=== PATIENT | female | born 1995 | race Two or more races ===

== ENCOUNTER 2018-11-18 11:34 | Inpatient (IN) | payer SELFPAY ==
[2018-11-18] MEDS ORDERED: Carboprost Tromethamine 250 MCG/1 ML Amp IM PRN (11:47)
[2018-11-18] MEDS ORDERED: Sodium Chloride 0.9% 10 ML Syringe FLUSH PRN (11:47)
[2018-11-18] MEDS ORDERED: Misoprostol 200 MCG Tab PO PRN (11:47)
[2018-11-18] MEDS ORDERED: Tranexamic Acid 1,000 MG in Sodium Chloride 0.9% 100 ML IV PRN (11:47)
[2018-11-18] MEDS ORDERED: Ampicillin 2 GM in Sodium Chloride 0.9% 100 ML IV ONE (11:47)
[2018-11-18] MEDS ORDERED: Terbutaline 1 MG/ML SDV SUBCUT PRN (11:47)
[2018-11-18] MEDS ORDERED: Methylergonovine 0.2 MG/1 ML Amp IM PRN (11:47)
[2018-11-18] MEDS ORDERED: Lidocaine 1% 50 ML MDV INJECT PRN (11:47)
[2018-11-18] MEDS ORDERED: Sodium Chloride 0.9% 2.5 ML Syringe FLUSH PRN (11:47)
[2018-11-18] MEDS ORDERED: Nalbuphine 10 MG/1 ML Vial IVPUSH PRN (11:47)
[2018-11-18] MEDS ORDERED: Butorphanol 1 MG/ML SDV IVPUSH PRN (11:47)
[2018-11-18] MEDS ORDERED: Water For Irrigation,Sterile 1,000 ML Container IRR PRN (11:47)
[2018-11-18] MEDS ORDERED: Misoprostol 25 MCG (1/4 of 100 MCG) Tab VAG PRN ×2 (11:47)
[2018-11-18] MEDS ORDERED: Lactated Ringers 1,000 ML IV SCH (12:00)
[2018-11-18] MEDS ORDERED: Oxytocin/0.9 % Sodium Chloride 30 UNIT/500 ML BAG IV SCH ×2 (12:00)
[2018-11-18] MEDS: Misoprostol 25 MCG (1/4 of 100 MCG) Tab PO ONE ×2 (13:16→17:46)
--- NOTE | 2018-11-18 13:19 | PCM.LDHP ---
L&D History of Present Illness - General Date of Service: 11/18/18 Admit Problem/Dx: Patient Status Order with Admit Dx/Problem 11/18/18 11:47 Patient Status [ADT] Routine Admission Diagnosis/Problem Admission Diagnosis/Problem Post term Source of Information: Patient History Limitations: Reports: No Limitations - History of Present Illness Improves with: Reports: None Worsens with: Reports: None Associated Symptoms: Reports: N - Related Data Allergies/Adverse Reactions: Allergies Allergy/AdvReac Type Severity Reaction Status Date / Time No Known Allergies Allergy Verified 09/12/18 14:45 Home Medications: Home Meds . 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: Social & Family History - Family History Cardiac: Reports: Hypertension OBGYN: Reports: H&P Review of Systems - Review of Systems: Review Of Systems: See Below General: Reports: No Symptoms HEENT: Reports: No Symptoms Pulmonary: Reports: No Symptoms Cardiovascular: Reports: No Symptoms Gastrointestinal: Reports: No Symptoms Genitourinary: Reports: No Symptoms Musculoskeletal: Reports: No Symptoms Skin: Reports: No Symptoms Psychiatric: Reports: No Symptoms Neurological: Reports: No Symptoms Hematologic/Lymphatic: Reports: No Symptoms Immunologic: Reports: No Symptoms L&D Exam - Exam Exam: See Below - Vital Signs Weight: 195 kg - OB Specific Fundal Height In cm: 39 Contraction Intensity: Mild Movement: Active Heart Tones: Present Presentation: Vertex - Otero Score Otero Score Cervix Position: Midposition Otero Score Consistency: Soft Otero Score Effacement: 51-70% Otero Score Dilation: 1-2 cm Otero Score 's Station: -2 Otero Score Total: 7 - Exam General: Alert, Oriented HEENT: PERRLA, Conjunctiva Clear, EACs Clear, EOMI, Hearing Intact, Mucosa Moist & [place], Nares Patent, Normal Nasal Septum, Posterior Pharynx Clear, TMs Clear Neck: Supple, Trachea Midline Lungs: Clear to Auscultation, Normal Respiratory Effort Cardiovascular: Regular Rate, Regular Rhythm GI/Abdominal Exam: Normal Bowel Sounds, Soft, Non-Tender, No Organomegaly, No Distention, No Abnormal Bruit, No Mass, Pelvis Stable Rectal Exam: Normal Exam, Normal Rectal Tone Genitourinary: Normal external exam, Normal bimanual exam, Normal speculum exam Back Exam: Normal Inspection, Full Range of Motion Extremities: Normal Inspection, Normal Range of Motion, Non-Tender, No Pedal Edema, Normal Capillary Refill Skin: Warm, Dry, Intact Neurological: Cranial Nerves Intact, Reflexes Equal Bilateral Psychiatric: Alert, Normal Affect, Normal Mood - Patient Data Lab Results Last 24 hrs: Laboratory Results - last 24 hr 11/18/18 Range/Units 12:14 WBC 8.55 (4.0-11.0) K/uL RBC 3.69 L (4.30-5.90) M/uL Hgb 9.9 L (12.0-16.0) g/dL Hct 30.6 L (36.0-46.0) % MCV 82.9 (80.0-98.0) fL MCH 26.8 L (27.0-32.0) pg MCHC 32.4 (31.0-37.0) g/dL RDW Std Deviation 44.4 (28.0-62.0) fl RDW Coeff of Pete 15 (11.0-15.0) % Plt Count 206 (150-400) K/uL MPV 11.40 (7.40-12.00) fL Nucleated RBC % 0.0 /100WBC Nucleated RBCs # 0 K/uL Result Diagrams: 11/18/18 12:14 Problem List Initiated/Reviewed/Updated: Yes Orders Last 24hrs: Active Orders 24 hr Category Date Time Status Patient Status [ADT] Routine ADT 11/18/18 11:47 Active Bedrest Bathroom Privileges [RC] ASDIRECTED Care 11/18/18 11:47 Active Communication Order [RC] ASDIRECTED Care 11/18/18 11:47 Active Communication Order [RC] ASDIRECTED Care 11/18/18 11:47 Active Communication Order [RC] ASDIRECTED Care 11/18/18 11:47 Active Heart Tones [RC] CONTINUOUS Care 11/18/18 11:47 Active Non Stress Test [RC] PER UNIT ROUTINE Care 11/18/18 11:47 Active May Shower [RC] ASDIRECTED Care 11/18/18 11:47 Active Notify Provider [RC] PRN Care 11/18/18 11:47 Active Notify Provider [RC] PRN Care 11/18/18 11:47 Active Notify Provider [RC] STAT Care 11/18/18 11:47 Active Oxygen Therapy [RC] ASDIRECTED Care 11/18/18 11:47 Active Up ad Ashley [RC] ASDIRECTED Care 11/18/18 11:47 Active Vaginal Exam [RC] PRN Care 11/18/18 11:47 Active Vaginal Exam [RC] PRN Care 11/18/18 11:47 Active Vital Signs [RC] PER UNIT ROUTINE Care 11/18/18 11:47 Active Regular Diet [DIET] Diet 11/18/18 Lunch Active TYPE AND SCREEN [BBK] Routine Lab 11/18/18 12:14 Received Ampicillin 1 gm Med 11/18/18 16:00 Active Sodium Chloride 0.9% [Normal Saline] 50 ml IV Q4H Butorphanol [Stadol] Med 11/18/18 11:47 Active 1 mg IVPUSH Q1H PRN Carboprost Tromethamine [Hemabate DS] Med 11/18/18 11:47 Active 250 mcg IM ASDIRECTED PRN Lactated Ringers [Ringers, Lactated] 1,000 ml Med 11/18/18 12:00 Active IV ASDIRECTED Lidocaine 1% [Xylocaine 1%] Med 11/18/18 11:47 Active 50 ml INJECT ONETIME PRN Methylergonovine [Methergine] Med 11/18/18 11:47 Active 0.2 mg IM ASDIRECTED PRN Nalbuphine [Nubain] Med 11/18/18 11:47 Active 10 mg IVPUSH Q1H PRN Oxytocin/0.9 % Sodium Chloride [Oxytocin 30 Unit/500 ML Med 11/18/18 12:00 Active -NS] 30 unit in 500 ml IV TITRATE Oxytocin/0.9 % Sodium Chloride [Oxytocin 30 Unit/500 ML Med 11/18/18 12:00 Active -NS] 30 unit in 500 ml IV TITRATE Sodium Chloride 0.9% [Saline Flush] Med 11/18/18 11:47 Active 10 ml FLUSH ASDIRECTED PRN Sodium Chloride 0.9% [Saline Flush] Med 11/18/18 11:47 Active 2.5 ml FLUSH ASDIRECTED PRN Terbutaline [Brethine] Med 11/18/18 11:47 Active 0.25 mg SUBCUT ASDIRECTED PRN Tranexamic Acid [Cyklokapron] 1,000 mg Med 11/18/18 11:47 Active Sodium Chloride 0.9% [Normal Saline] 100 ml IV ONETIME Water For Irrigation,Sterile [Sterile Water for Med 11/18/18 11:47 Active Irrigation] 1,000 ml IRR ASDIRECTED PRN miSOPROStol [Cytotec] Med 11/18/18 11:47 Active 200 mcg PO ONETIME PRN miSOPROStol [Cytotec] Med 11/18/18 11:47 Active 25 mcg VAG ONETIME PRN miSOPROStol [Cytotec] Med 11/18/18 11:47 Active 25 mcg VAG Q4H PRN Scalp Electrode [WOMSER] Per Unit Routine Oth 11/18/18 11:47 Ordered Medication Administration Instruction [OM.PC] Q3H Oth 11/18/18 12:00 Ordered Peripheral IV Insertion Adult [OM.PC] Routine Oth 11/18/18 11:47 Ordered Resuscitation Status Routine Resus Stat 11/18/18 11:47 Ordered Medication Orders Butorphanol Tartrate (Stadol) 1 mg IVPUSH Q1H PRN PRN Reason: Pain Carboprost Tromethamine (Hemabate Ds) 250 mcg IM ASDIRECTED PRN PRN Reason: Post Hemorrhage Ampicillin Sodium 1 gm/ Sodium (Chloride) 50 mls @ 100 mls/hr IV Q4H TEJAS Lactated Ringer's (Ringers, Lactated) 1,000 mls @ 150 mls/hr IV ASDIRECTED TEJAS Oxytocin/Sodium Chloride (Oxytocin 30 Unit/500 Ml-Ns) 30 unit in 500 mls @ 2 mls/hr IV TITRATE COUNT INCLUDES THE [facility]; Protocol Oxytocin/Sodium Chloride (Oxytocin 30 Unit/500 Ml-Ns) 30 unit in 500 mls @ 555 mls/hr IV TITRATE TEJAS Tranexamic Acid 1,000 mg/ (Sodium Chloride) 110 mls @ 660 mls/hr IV ONETIME PRN PRN Reason: Bleeding Lidocaine HCl (Xylocaine 1%) 50 ml INJECT ONETIME PRN PRN Reason: Laceration repair Methylergonovine Maleate (Methergine) 0.2 mg IM ASDIRECTED PRN PRN Reason: Post Hemorrhage Misoprostol (Cytotec) 25 mcg VAG ONETIME PRN PRN Reason: Cervical Ripening Last Admin: 11/18/18 13:15 Dose: 25 mcg Misoprostol (Cytotec) 25 mcg VAG Q4H PRN PRN Reason: Cervical Ripening Misoprostol (Cytotec) 200 mcg PO ONETIME PRN PRN Reason: Post Hemorrhage Nalbuphine HCl (Nubain) 10 mg IVPUSH Q1H PRN PRN Reason: Pain (severe 7-10) Sodium Chloride (Saline Flush) 10 ml FLUSH ASDIRECTED PRN PRN Reason: Keep Vein Open Sodium Chloride (Saline Flush) 2.5 ml FLUSH ASDIRECTED PRN PRN Reason: Keep Vein Open Sterile Water (Sterile Water For Irrigation) 1,000 ml IRR ASDIRECTED PRN PRN Reason: delivery Terbutaline Sulfate (Brethine) 0.25 mg SUBCUT ASDIRECTED PRN PRN Reason: Tacysystole Assessment/Plan Comment:: Post date admited for elective induction with Cytotec and Pitocin.
[2018-11-18] MEDS: Ampicillin 1 GM in Sodium Chloride 0.9% 50 ML IV SCH (18:36)
[2018-11-18] MEDS ORDERED: Lidocaine 1% 50 ML MDV ONE (20:50)
[2018-11-18] MEDS ORDERED: Witch Hazel Medicated Pads 40/Jar TOP PRN (21:08)
[2018-11-18] MEDS ORDERED: Ibuprofen 400 MG Tab PO PRN (21:08)
[2018-11-18] MEDS ORDERED: Bisacodyl 10 MG Supp RECTAL PRN (21:08)
[2018-11-18] MEDS ORDERED: oxyCODONE 5 MG Tab PO PRN (21:08)
[2018-11-18] MEDS ORDERED: Benzocaine/Menthol 20%-0.5% Spray 78 GM Cannister TOP PRN (21:08)
[2018-11-18] MEDS ORDERED: Lanolin 100% Cream 7 GM Tube TOP PRN (21:08)
[2018-11-18] MEDS ORDERED: Docusate Sodium 100 MG Cap PO PRN (21:08)
[2018-11-18] MEDS ORDERED: Acetaminophen 500 MG Tab PO PRN (21:08)
[2018-11-18] MEDS: Ibuprofen 800 MG Tab PO PRN (21:55)
[2018-11-19] MEDS: Acetaminophen 500 MG Tab PO PRN ×2 (03:31→10:28)
[2018-11-19] MEDS: Ibuprofen 800 MG Tab PO PRN ×3 (03:32→20:02)
--- NOTE | 2018-11-19 04:05 | OR ---
SURGEON: Koe Escalona MD DATE OF PROCEDURE: Ms. Rogers is 23. She is para 1-0-0-1. She had a previous normal spontaneous vaginal delivery. She is followed in our clinic primarily by me. The patient has had an uncomplicated care. Her GBS status was positive. The patient is admitted. She is 40 plus weeks. She is admitted for elective induction. She was induced with Cytotec. She required 2 doses of Cytotec, and she started to contract after that. She started cm on her own. She had an artificial rupture of the membranes with clear fluid at 6 to 7 cm. The patient did not want to have epidural for labor analgesia. She progressed and she became complete-complete, and she was able to accomplish a normal spontaneous vaginal delivery of a female fetus. She has cried immediately. For the score and the weight, please refer to the nurse note. The placenta delivered spontaneous, complete, and intact. There was a small first-degree perineal laceration. It was repaired with 3-0 Vicryl after infiltrating the area with 1% xylocaine, and heart rate was category I through the entire process of labor and delivery. Estimated blood loss is 250 to 300 mL. There was no complication in this Labor and Delivery. RONAN / EVERARDO /[id number]
--- NOTE | 2018-11-19 09:35 | PCM.PNPP ---
- General Info Date of Service: 11/19/18 Functional Status: Reports: Pain Controlled - Review of Systems General: Reports: No Symptoms HEENT: Reports: No Symptoms Pulmonary: Reports: No Symptoms Cardiovascular: Reports: No Symptoms Gastrointestinal: Reports: No Symptoms Genitourinary: Reports: No Symptoms Musculoskeletal: Reports: No Symptoms Skin: Reports: No Symptoms Neurological: Reports: No Symptoms Psychiatric: Reports: No Symptoms - General Info Date of Service: 11/19/18 - Patient Data Vital Signs - Most Recent: Last Vital Signs Temp 37.0 C 11/19/18 07:10 Pulse 86 11/19/18 07:10 Resp 17 11/19/18 07:10 BP 117/69 11/19/18 07:10 Pulse Ox 97 11/19/18 07:10 Weight - Most Recent: 195 kg Lab Results - Last 24 Hours: Laboratory Results - last 24 hr 11/18/18 11/18/18 11/19/18 Range/Units 12:14 12:14 04:50 WBC 8.55 (4.0-11.0) K/uL RBC 3.69 L (4.30-5.90) M/uL Hgb 9.9 L 9.8 L (12.0-16.0) g/dL Hct 30.6 L 30.7 L (36.0-46.0) % MCV 82.9 (80.0-98.0) fL MCH 26.8 L (27.0-32.0) pg MCHC 32.4 (31.0-37.0) g/dL RDW Std Deviation 44.4 (28.0-62.0) fl RDW Coeff of Pete 15 (11.0-15.0) % Plt Count 206 (150-400) K/uL MPV 11.40 (7.40-12.00) fL Nucleated RBC % 0.0 /100WBC Nucleated RBCs # 0 K/uL Blood Type A POSITIVE Antibody Screen NEGATIVE Med Orders - Current: Current Medications Acetaminophen (Tylenol Extra Strength) 500 mg PO Q4H PRN PRN Reason: Pain Acetaminophen (Tylenol Extra Strength) 1,000 mg PO Q4H PRN PRN Reason: Pain Last Admin: 11/19/18 03:31 Dose: 1,000 mg Benzocaine/Menthol (Dermoplast Pain Relief 20%-0.5% Mclean) 78 gm TOP ASDIRECTED PRN PRN Reason: Perineal Comfort Measure Last Admin: 11/18/18 21:59 Dose: 1 can Bisacodyl (Dulcolax) 10 mg RECTAL ONETIME PRN PRN Reason: Constipation Butorphanol Tartrate (Stadol) 1 mg IVPUSH Q1H PRN PRN Reason: Pain Last Admin: 11/18/18 19:03 Dose: 1 mg Carboprost Tromethamine (Hemabate Ds) 250 mcg IM ASDIRECTED PRN PRN Reason: Post Hemorrhage Docusate Sodium (Colace) 100 mg PO BID PRN PRN Reason: Constipation Emollient Ointment (Lansinoh Hpa) 0 gm TOP ASDIRECTED PRN PRN Reason: Sore Nipples Ampicillin Sodium 1 gm/ Sodium (Chloride) 50 mls @ 100 mls/hr IV Q4H TEJAS Last Admin: 11/18/18 18:36 Dose: 100 mls/hr Lactated Ringer's (Ringers, Lactated) 1,000 mls @ 150 mls/hr IV ASDIRECTED TEJAS Oxytocin/Sodium Chloride (Oxytocin 30 Unit/500 Ml-Ns) 30 unit in 500 mls @ 2 mls/hr IV TITRATE COUNTS INCLUDE 234 BEDS AT THE [facility]; Protocol Oxytocin/Sodium Chloride (Oxytocin 30 Unit/500 Ml-Ns) 30 unit in 500 mls @ 555 mls/hr IV TITRATE COUNTS INCLUDE 234 BEDS AT THE [facility] Last Admin: 11/18/18 20:45 Dose: 555 mls/hr Tranexamic Acid 1,000 mg/ (Sodium Chloride) 110 mls @ 660 mls/hr IV ONETIME PRN PRN Reason: Bleeding Ibuprofen (Motrin) 400 mg PO Q4H PRN PRN Reason: Pain Ibuprofen (Motrin) 800 mg PO Q6H PRN PRN Reason: Pain Last Admin: 11/19/18 03:32 Dose: 800 mg Lidocaine HCl (Xylocaine 1%) 50 ml INJECT ONETIME PRN PRN Reason: Laceration repair Last Admin: 11/18/18 20:52 Dose: 50 ml Methylergonovine Maleate (Methergine) 0.2 mg IM ASDIRECTED PRN PRN Reason: Post Hemorrhage Misoprostol (Cytotec) 25 mcg VAG ONETIME PRN PRN Reason: Cervical Ripening Last Admin: 11/18/18 13:15 Dose: 25 mcg Misoprostol (Cytotec) 25 mcg VAG Q4H PRN PRN Reason: Cervical Ripening Last Admin: 11/18/18 17:46 Dose: 25 mcg Misoprostol (Cytotec) 200 mcg PO ONETIME PRN PRN Reason: Post Hemorrhage Nalbuphine HCl (Nubain) 10 mg IVPUSH Q1H PRN PRN Reason: Pain (severe 7-10) Oxycodone HCl (Oxycodone) 5 mg PO Q2H PRN PRN Reason: Pain Last Admin: 11/18/18 21:58 Dose: 5 mg Sodium Chloride (Saline Flush) 10 ml FLUSH ASDIRECTED PRN PRN Reason: Keep Vein Open Sodium Chloride (Saline Flush) 2.5 ml FLUSH ASDIRECTED PRN PRN Reason: Keep Vein Open Sterile Water (Sterile Water For Irrigation) 1,000 ml IRR ASDIRECTED PRN PRN Reason: delivery Terbutaline Sulfate (Brethine) 0.25 mg SUBCUT ASDIRECTED PRN PRN Reason: Tacysystole Witch Maite (Tucks) 1 pad TOP ASDIRECTED PRN PRN Reason: comfort care Discontinued Medications Ampicillin Sodium 2 gm/ Sodium (Chloride) 100 mls @ 200 mls/hr IV ONETIME ONE Stop: 11/18/18 12:16 Last Admin: 11/18/18 14:15 Dose: 200 mls/hr Lidocaine HCl (Xylocaine 1%) Confirm Administered Dose 50 ml .ROUTE .STK-MED ONE Stop: 11/18/18 20:51 Misoprostol (Cytotec) 25 mcg PO ONETIME ONE Stop: 11/18/18 12:23 Last Admin: 11/18/18 17:46 Dose: 25 mcg - Interaction Infant Disposition, : [place] in Room with Family Interaction: Holding Infant Feeding: Attempted ; Nursed Fair/Poor Support Person: Significant Other - Recovery Exam Fundal Tone: Firm Fundal Level: 1 Fingerbreadths Below Umbilicus Fundal Placement: Midline Lochia Amount: Scant Lochia Color: Rubra/Red - Exam General: Alert, Oriented HEENT: Pupils Equal Neck: Supple Lungs: Clear to Auscultation, Normal Respiratory Effort Cardiovascular: Regular Rate, Regular Rhythm GI/Abdominal Exam: Normal Bowel Sounds, Soft, Non-Tender, No Organomegaly, No Distention, No Abnormal Bruit, No Mass, Pelvis Stable Extremities: Normal Inspection, Normal Range of Motion, Non-Tender, No Pedal Edema, Normal Capillary Refill Skin: Warm, Dry, Intact Wound/Incisions: Healing Well Neurological: No New Focal Deficit Psy/Mental Status: Alert, Normal Affect, Normal Mood - Problem List Review Problem List Initiated/Reviewed/Updated: Yes - My Orders Last 24 Hours: My Active Orders 11/18/18 11:47 Communication Order [RC] ASDIRECTED Notify Provider [RC] PRN Notify Provider [RC] PRN Notify Provider [RC] STAT Oxygen Therapy [RC] ASDIRECTED Up ad Ashley [RC] ASDIRECTED Vital Signs [RC] PER UNIT ROUTINE Butorphanol [Stadol] 1 mg IVPUSH Q1H PRN Carboprost Tromethamine [Hemabate DS] 250 mcg IM ASDIRECTED PRN Lidocaine 1% [Xylocaine 1%] 50 ml INJECT ONETIME PRN Methylergonovine [Methergine] 0.2 mg IM ASDIRECTED PRN Nalbuphine [Nubain] 10 mg IVPUSH Q1H PRN Sodium Chloride 0.9% [Saline Flush] 10 ml FLUSH ASDIRECTED PRN Sodium Chloride 0.9% [Saline Flush] 2.5 ml FLUSH ASDIRECTED PRN Terbutaline [Brethine] 0.25 mg SUBCUT ASDIRECTED PRN Tranexamic Acid [Cyklokapron] 1,000 mg Sodium Chloride 0.9% [Normal Saline] 100 ml IV ONETIME Water For Irrigation,Sterile [Sterile Water for Irrigation] 1,000 ml IRR ASDIRECTED PRN miSOPROStol [Cytotec] 200 mcg PO ONETIME PRN miSOPROStol [Cytotec] 25 mcg VAG ONETIME PRN miSOPROStol [Cytotec] 25 mcg VAG Q4H PRN Scalp Electrode [WOMSER] Per Unit Routine Peripheral IV Insertion Adult [OM.PC] Routine Resuscitation Status Routine 11/18/18 12:00 Lactated Ringers [Ringers, Lactated] 1,000 ml IV ASDIRECTED Oxytocin/0.9 % Sodium Chloride [Oxytocin 30 Unit/500 ML-NS] 30 unit in 500 ml IV TITRATE Oxytocin/0.9 % Sodium Chloride [Oxytocin 30 Unit/500 ML-NS] 30 unit in 500 ml IV TITRATE Medication Administration Instruction [OM.PC] Q3H 11/18/18 16:00 Ampicillin 1 gm Sodium Chloride 0.9% [Normal Saline] 50 ml IV Q4H 11/18/18 21:08 Acetaminophen [Tylenol Extra Strength] 1,000 mg PO Q4H PRN Acetaminophen [Tylenol Extra Strength] 500 mg PO Q4H PRN Benzocaine/Menthol [Dermoplast Pain Relief 20%-0.5% Mclean] 78 gm TOP ASDIRECTED PRN Bisacodyl [Dulcolax] 10 mg RECTAL ONETIME PRN Docusate Sodium [Colace] 100 mg PO BID PRN Ibuprofen [Motrin] 400 mg PO Q4H PRN Ibuprofen [Motrin] 800 mg PO Q6H PRN Lanolin [Lansinoh HPA] See Dose Instructions TOP ASDIRECTED PRN Witch Maite [Tucks] 1 pad TOP ASDIRECTED PRN oxyCODONE 5 mg PO Q2H PRN 11/18/18 21:09 Patient Status [ADT] Routine May Shower [RC] ASDIRECTED Up ad Ashley [RC] ASDIRECTED Vital Signs [RC] PER UNIT ROUTINE Assess Lochia [WOMSER] Per Unit Routine Assess Uterine Involution [WOMSER] Per Unit Routine Peripheral IV Discontinue [OM.PC] Routine 11/18/18 Lunch Regular Diet [DIET] - Assessment Assessment:: Status post normal spontaneous vaginal delivery doing well the patient like to be discharged today - Plan Plan:: Post date admited for elective induction with Cytotec and Pitocin.
[2018-11-19] MEDS: Ampicillin 1 GM in Sodium Chloride 0.9% 50 ML IV SCH ×5 (11:29→23:15)
== END 2018-11-20 01:15 | disposition home or self-care (01) | DRG 807 ==
LOC: MW.OBCHECK 11:34 → MW.OB 11:35 → OBSVTOIN 11:47 → MW.OB 11:47 → MW.MS 13:37 → MW.OB 13:40
PROVIDERS: ADMIT Obstetrics & Gynecology; ATTEND Obstetrics & Gynecology
PROC: 10E0XZZ Delivery of Products of Conception, External Approach (ICD-10-PCS; principal; 2018-11-18)
PROC: 0HQ9XZZ Repair Perineum Skin, External Approach (ICD-10-PCS; 2018-11-18)
PROC: 10907ZC Drainage of Amniotic Fluid, Therapeutic from Products of Conception, Via Natural or Artificial Opening (ICD-10-PCS; 2018-11-18)
PROC: 3E033VJ Introduction of Other Hormone into Peripheral Vein, Percutaneous Approach (ICD-10-PCS; 2018-11-18)
PROC: 3E0P7VZ Introduction of Hormone into Female Reproductive, Via Natural or Artificial Opening (ICD-10-PCS; 2018-11-18)
DX: O48.0 Post-term pregnancy (principal); Z37.0 Single live birth; Z3A.40 40 weeks gestation of pregnancy; O99.824 Streptococcus B carrier state complicating childbirth; O70.0 First degree perineal laceration during delivery; Z67.11 Type A blood, Rh negative
CPT/HCPCS: 36415; 59025; 59409; 85014; 85018; 85027; 86850; 86900; 86901; A9270-GY; J0290; J0595; J2590; J7030; J7050

== ENCOUNTER 2019-11-08 11:46 | Inpatient (IN) | payer SELFPAY ==
[2019-11-08] MEDS ORDERED: Sodium Chloride 0.9% 10 ML Syringe FLUSH PRN (11:52)
[2019-11-08] MEDS ORDERED: Lidocaine 1% 50 ML MDV INJECT PRN (11:52)
[2019-11-08] MEDS ORDERED: Butorphanol 1 MG/ML SDV IVPUSH PRN (11:52)
[2019-11-08] MEDS ORDERED: Ondansetron 4 MG/2 ML SDV IVPUSH PRN (11:52)
[2019-11-08] MEDS ORDERED: Nalbuphine 10 MG/1 ML Vial IVPUSH PRN (11:52)
[2019-11-08] MEDS ORDERED: Methylergonovine 0.2 MG/1 ML Amp IM PRN (11:52)
[2019-11-08] MEDS ORDERED: Tranexamic Acid 1,000 MG in Sodium Chloride 0.9% 100 ML IV PRN (11:52)
[2019-11-08] MEDS ORDERED: Carboprost Tromethamine 250 MCG/1 ML Amp IM PRN (11:52)
[2019-11-08] MEDS ORDERED: Sodium Chloride 0.9% 10 ML SDV IV PRN (11:52)
[2019-11-08] MEDS ORDERED: Misoprostol 200 MCG Tab PO PRN (11:52)
[2019-11-08] MEDS ORDERED: Sodium Chloride 0.9% 2.5 ML Syringe FLUSH PRN (11:52)
[2019-11-08] MEDS ORDERED: Water For Irrigation,Sterile 1,000 ML Container IRR PRN (11:52)
[2019-11-08] MEDS ORDERED: Lactated Ringers 1,000 ML IV SCH (12:00)
[2019-11-08] MEDS ORDERED: Oxytocin/0.9 % Sodium Chloride 30 UNIT/500 ML BAG IV SCH (12:00)
[2019-11-08] MEDS ORDERED: fentaNYL 100 MCG/2 ML SDV ONE (12:32)
[2019-11-08] MEDS ORDERED: Ropivacaine HCl/PF 100 ML ONE (12:32)
--- NOTE | 2019-11-08 12:39 | PCM.LDHP ---
L&D History of Present Illness - General Date of Service: 11/08/19 Admit Problem/Dx: Patient Status Order with Admit Dx/Problem 11/08/19 11:52 Patient Status [ADT] Routine Admission Diagnosis/Problem Admission Diagnosis/Problem - planned 11/08/19 12:33 24yo EDC 11/15/2018 39wks Comes in active labor, A+, RI, GBS neg. Source of Information: Patient History Limitations: Reports: No Limitations - History of Present Illness Improves with: Reports: None Worsens with: Reports: None Associated Symptoms: Reports: N - Related Data Allergies/Adverse Reactions: Allergies Allergy/AdvReac Type Severity Reaction Status Date / Time No Known Allergies Allergy Verified 09/12/18 14:45 Home Medications: Home Meds . 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: Social & Family History - Family History Cardiac: Reports: Hypertension OBGYN: Reports: H&P Review of Systems - Review of Systems: Review Of Systems: See Below General: Reports: No Symptoms HEENT: Reports: No Symptoms Pulmonary: Reports: No Symptoms Cardiovascular: Reports: No Symptoms Gastrointestinal: Reports: No Symptoms Genitourinary: Reports: No Symptoms Musculoskeletal: Reports: No Symptoms Skin: Reports: No Symptoms Psychiatric: Reports: No Symptoms Neurological: Reports: No Symptoms Hematologic/Lymphatic: Reports: No Symptoms Immunologic: Reports: No Symptoms L&D Exam - Exam Exam: See Below - Vital Signs Weight: 96.162 kg - OB Specific Contraction Intensity: Strong Movement: Active Heart Tones: Present Heart Rate (FHR) Variability: Moderate (6-25 bmp) Presentation: Vertex - Otero Score Otero Score Cervix Position: Anterior Otero Score Consistency: Soft Otero Score Effacement: >80% Otero Score Dilation: > 5 cm Otero Score 's Station: -2 Otero Score Total: 11 - Exam General: Alert, Oriented, Cooperative, Mild Distress HEENT: Hearing Intact Lungs: Normal Respiratory Effort GI/Abdominal Exam: Soft, Non-Tender Rectal Exam: Deferred Genitourinary: Normal external exam, Normal bimanual exam, Cervical dilitation. No: Cervical fluid, Vaginal bleeding Back Exam: Full Range of Motion Extremities: Normal Range of Motion, Non-Tender, No Pedal Edema Skin: Warm, Dry, Intact Neurological: Cranial Nerves Intact, Strength Equal Bilateral, Normal Speech, Normal Tone, Sensation Intact Psychiatric: Alert, Normal Affect, Normal Mood - Problem List (1) Supervision of normal IUP (intrauterine ) in multigravida SNOMED Code(s): 066409405, [id number], [id number] ICD Code: Z34.80 - ENCOUNTER FOR SUPRVSN OF NORMAL , UNSP TRIMESTER Status: Acute Priority: High Current Visit: Yes Qualifiers: Trimester: third trimester Qualified Code(s): Z34.83 - Encounter for supervision of other normal , third trimester Problem List Initiated/Reviewed/Updated: Yes Orders Last 24hrs: Active Orders 24 hr Category Date Time Status Patient Status [ADT] Routine ADT 11/08/19 11:52 Active Heart Tones [RC] CONTINUOUS Care 11/08/19 11:52 Active May Shower [RC] ASDIRECTED Care 11/08/19 11:52 Active Notify Provider [RC] PRN Care 11/08/19 11:52 Active Up ad Ashley [RC] ASDIRECTED Care 11/08/19 11:52 Active Vaginal Exam [RC] PRN Care 11/08/19 11:52 Active Vital Signs [RC] PER UNIT ROUTINE Care 11/08/19 11:52 Active CBC W/O DIFF,HEMOGRAM [HEME] Routine Lab 11/08/19 11:52 Ordered RAPID PLASMA REAGIN, QUANT [REF] Routine Lab 11/08/19 11:52 Ordered TYPE AND SCREEN [BBK] Routine Lab 11/08/19 11:52 Ordered Butorphanol [Stadol] Med 11/08/19 11:52 Active 1 mg IVPUSH Q1H PRN Carboprost Tromethamine [Hemabate DS] Med 11/08/19 11:52 Active 250 mcg IM ASDIRECTED PRN Lactated Ringers [Ringers, Lactated] 1,000 ml Med 11/08/19 12:00 Active IV ASDIRECTED Lidocaine 1% [Xylocaine 1%] Med 11/08/19 11:52 Active 50 ml INJECT ONETIME PRN Methylergonovine [Methergine] Med 11/08/19 11:52 Active 0.2 mg IM ASDIRECTED PRN Nalbuphine [Nubain] Med 11/08/19 11:52 Active 10 mg IVPUSH Q1H PRN Ondansetron [Zofran] Med 11/08/19 11:52 Active 4 mg IVPUSH Q6H PRN Oxytocin/0.9 % Sodium Chloride [Oxytocin 30 Unit/500 ML Med 11/08/19 12:00 Active -NS] 30 unit in 500 ml IV TITRATE Sodium Chloride 0.9% [Normal Saline] Med 11/08/19 11:52 Active 10 ml IV ASDIRECTED PRN Sodium Chloride 0.9% [Saline Flush] Med 11/08/19 11:52 Active 10 ml FLUSH ASDIRECTED PRN Sodium Chloride 0.9% [Saline Flush] Med 11/08/19 11:52 Active 2.5 ml FLUSH ASDIRECTED PRN Tranexamic Acid [Cyklokapron] 1,000 mg Med 11/08/19 11:52 Active Sodium Chloride 0.9% [Normal Saline] 100 ml IV ONETIME Water For Irrigation,Sterile [Sterile Water for Med 11/08/19 11:52 Active Irrigation] 1,000 ml IRR ASDIRECTED PRN miSOPROStoL [Cytotec] Med 11/08/19 11:52 Active 200 mcg PO ONETIME PRN Scalp Electrode [WOMSER] Per Unit Routine Oth 11/08/19 11:52 Ordered Peripheral IV Insertion Adult [OM.PC] Routine Oth 11/08/19 11:52 Ordered Resuscitation Status Routine Resus Stat 11/08/19 11:52 Ordered Medication Orders Butorphanol Tartrate (Stadol) 1 mg IVPUSH Q1H PRN PRN Reason: Pain Carboprost Tromethamine (Hemabate Ds) 250 mcg IM ASDIRECTED PRN PRN Reason: Post Hemorrhage Lactated Ringer's (Ringers, Lactated) 1,000 mls @ 150 mls/hr IV ASDIRECTED TEJAS Oxytocin/Sodium Chloride (Oxytocin 30 Unit/500 Ml-Ns) 30 unit in 500 mls @ 999 mls/hr IV TITRATE TEJAS Tranexamic Acid 1,000 mg/ (Sodium Chloride) 110 mls @ 660 mls/hr IV ONETIME PRN PRN Reason: Bleeding Lidocaine HCl (Xylocaine 1%) 50 ml INJECT ONETIME PRN PRN Reason: Laceration repair Methylergonovine Maleate (Methergine) 0.2 mg IM ASDIRECTED PRN PRN Reason: Post Hemorrhage Misoprostol (Cytotec) 200 mcg PO ONETIME PRN PRN Reason: Post Hemorrhage Nalbuphine HCl (Nubain) 10 mg IVPUSH Q1H PRN PRN Reason: Pain (severe 7-10) Ondansetron HCl (Zofran) 4 mg IVPUSH Q6H PRN PRN Reason: Nausea/Vomiting Sodium Chloride (Saline Flush) 10 ml FLUSH ASDIRECTED PRN PRN Reason: Keep Vein Open Sodium Chloride (Saline Flush) 2.5 ml FLUSH ASDIRECTED PRN PRN Reason: Keep Vein Open Sodium Chloride (Normal Saline) 10 ml IV ASDIRECTED PRN PRN Reason: IV Use Sterile Water (Sterile Water For Irrigation) 1,000 ml IRR ASDIRECTED PRN PRN Reason: delivery Assessment/Plan Comment:: Labor A: 24yo EDC 11/15/2018 39wks Comes in active labor, A+, RI, GBS neg. P: Admit, epidural now, anticipate , Dr Escalona updated
--- NOTE | 2019-11-08 12:55 | PCM.PREANE ---
Preanesthetic Assessment - Anesthesia/Transfusion/Family Hx Anesthesia History: No Prior Anesthesia Family History of Anesthesia Reaction: No Transfusion History: No Prior Transfusion(s) - Physical Assessment NPO Status Date: 11/08/19 NPO Status Time: 10:00 Height: 1.65 m Weight: 96.162 kg ASA Class: 1 - Lab Values: Laboratory Last Values WBC 18.80 K/uL (4.0-11.0) H 11/08/19 12:20 RBC 4.06 M/uL (4.30-5.90) L 11/08/19 12:20 Hgb 8.6 g/dL (12.0-16.0) L 11/08/19 12:20 Hct 28.6 % (36.0-46.0) L 11/08/19 12:20 MCV 70.4 fL (80.0-98.0) L 11/08/19 12:20 MCH 21.2 pg (27.0-32.0) L 11/08/19 12:20 MCHC 30.1 g/dL (31.0-37.0) L 11/08/19 12:20 RDW Std Deviation 44.8 fl (28.0-62.0) 11/08/19 12:20 RDW Coeff of Pete 18 % (11.0-15.0) H 11/08/19 12:20 Plt Count 186 K/uL (150-400) 11/08/19 12:20 MPV 10.60 fL (7.40-12.00) 11/08/19 12:20 Nucleated RBC % 0.1 /100WBC 11/08/19 12:20 Nucleated RBCs # 0 K/uL 11/08/19 12:20 - Allergies Allergies/Adverse Reactions: Allergies Allergy/AdvReac Type Severity Reaction Status Date / Time No Known Allergies Allergy Verified 09/12/18 14:45 - Acknowledgements Anesthesia Type Planned: Epidural Pt an Appropriate Candidate for the Planned Anesthesia: Yes Alternatives and Risks of Anesthesia Discussed w Pt/Guardian: Yes Pt/Guardian Understands and Agrees with Anesthesia Plan: Yes PreAnesthesia Questionnaire - Past Health History Medical/Surgical History: Denies 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 [No Known Home Meds] 09/12/18 [History] - CURRENT (IN HOUSE) MEDS Current Meds: Current Medications Butorphanol Tartrate (Stadol) 1 mg IVPUSH Q1H PRN PRN Reason: Pain Carboprost Tromethamine (Hemabate Ds) 250 mcg IM ASDIRECTED PRN PRN Reason: Post Hemorrhage Lactated Ringer's (Ringers, Lactated) 1,000 mls @ 150 mls/hr IV ASDIRECTED TEJAS Oxytocin/Sodium Chloride (Oxytocin 30 Unit/500 Ml-Ns) 30 unit in 500 mls @ 999 mls/hr IV TITRATE TEJAS Tranexamic Acid 1,000 mg/ (Sodium Chloride) 110 mls @ 660 mls/hr IV ONETIME PRN PRN Reason: Bleeding Lidocaine HCl (Xylocaine 1%) 50 ml INJECT ONETIME PRN PRN Reason: Laceration repair Methylergonovine Maleate (Methergine) 0.2 mg IM ASDIRECTED PRN PRN Reason: Post Hemorrhage Misoprostol (Cytotec) 200 mcg PO ONETIME PRN PRN Reason: Post Hemorrhage Nalbuphine HCl (Nubain) 10 mg IVPUSH Q1H PRN PRN Reason: Pain (severe 7-10) Ondansetron HCl (Zofran) 4 mg IVPUSH Q6H PRN PRN Reason: Nausea/Vomiting Sodium Chloride (Saline Flush) 10 ml FLUSH ASDIRECTED PRN PRN Reason: Keep Vein Open Sodium Chloride (Saline Flush) 2.5 ml FLUSH ASDIRECTED PRN PRN Reason: Keep Vein Open Sodium Chloride (Normal Saline) 10 ml IV ASDIRECTED PRN PRN Reason: IV Use Sterile Water (Sterile Water For Irrigation) 1,000 ml IRR ASDIRECTED PRN PRN Reason: delivery Discontinued Medications Fentanyl (Sublimaze) Confirm Administered Dose 100 mcg .ROUTE .STK-MED ONE Stop: 11/08/19 12:33 Ropivacaine (Naropin 0.2%) Confirm Administered Dose 100 mls @ as directed .ROUTE .STK-MED ONE Stop: 11/08/19 12:33
--- NOTE | 2019-11-08 12:58 | PCM.PRNOTE ---
- Free Text/Narrative Note: Anes Note Patietn requests epidural for L&D. Sitting position, Level L3-L4 midline approach. sterile technique, chloraprep scrub to lumbar area. Sterile fenestrated drape applied. Epidural space easily achieved single attempt with ease using ANA MARIA technique. ANA MARIA at 3 cm. Cathreaded 5 cm with ease. Cath secured at skin at 9 cm with sterile clear adhesive dressing. 1250 Test 3 cc 1.5% lido with epi negative 1253 Load 10 cc 0.2% ropivicaine with 1 mcg cc fentanyl in slow divided doses. 1258 Pump started with 90 cc same solution at 8 cc hr with 6 cc q 20 min prn bolus. Robb well. 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
[2019-11-08] MEDS ORDERED: Ibuprofen 400 MG Tab PO PRN (13:43)
[2019-11-08] MEDS ORDERED: Lanolin 100% Cream 7 GM Tube TOP PRN (13:43)
[2019-11-08] MEDS ORDERED: Witch Hazel Medicated Pads 40/Jar TOP PRN (13:43)
[2019-11-08] MEDS ORDERED: Acetaminophen 500 MG Tab PO PRN (13:43)
[2019-11-08] MEDS ORDERED: oxyCODONE 5 MG Tab PO PRN (13:43)
[2019-11-08] MEDS ORDERED: Benzocaine/Menthol 20%-0.5% Spray 78 GM Cannister TOP PRN (13:43)
[2019-11-08] MEDS ORDERED: Docusate Sodium 100 MG Cap PO PRN (13:43)
[2019-11-08] MEDS ORDERED: Bisacodyl 10 MG Supp RECTAL PRN (13:43)
--- NOTE | 2019-11-08 13:54 | PCM.DEL ---
L & D Note - General Info Date of Service: 11/08/19 Mother's Due Date: 11/15/19 - Delivery Note Labor: Spontaneous Delivery Outcome: Livebirth Infant Delivery Method: Spontaneous Vaginal Delivery-Single Delivery Mode: Spontaneous Presentation: Vertex Nuchal Cord: Present (reduced over head) Anesthesia Type: Epidural Amniotic Fluid Description: Meconium Stained Episiotomy Type: None Laceration: Other (left perineal lac with repair) Suture size: 4-0 Placenta: Intact, Spontaneous Cord: 3 Vessels Estimated Blood Loss: 100 Resuscitation Needed: No : Stimulated Score 1 min: 8 Score 5 min: 9 Second Stage Interventions: Reports: Pushing, Pulls Own Legs Back Delivery Comments (Free Text/Narrative):: of viable female, head delivered, nuchal x1 reduced over head. Shoulders and body followed easily. with spont cry placed on mothers abdomen. Delayed cord clamping, pitocin to IVF, Cord clamped and cut by FOB. Cord blood collected. Inspection noted small left perineal lac with repair 4-0 luis enrique. EBL 100cc. APGARS 8/9 Wt: pending bonding. Mom and baby stable - General Info Date of Service: 11/08/19 Admission Dx/Problem (Free Text): Patient Status Order with Admit Dx/Problem 11/08/19 11:52 Patient Status [ADT] Routine Admission Diagnosis/Problem Admission Diagnosis/Problem - planned 11/08/19 12:33 24yo EDC 11/15/2018 39wks Comes in active labor, A+, RI, GBS neg. Functional Status: Reports: Pain Controlled, Tolerating Diet - Review of Systems General: Reports: No Symptoms HEENT: Reports: No Symptoms Pulmonary: Reports: No Symptoms Cardiovascular: Reports: No Symptoms Gastrointestinal: Reports: No Symptoms Genitourinary: Reports: No Symptoms Musculoskeletal: Reports: No Symptoms Skin: Reports: No Symptoms Neurological: Reports: No Symptoms Psychiatric: Reports: No Symptoms - Patient Data Weight - Most Recent: 96.162 kg Lab Results Last 24 Hours: Laboratory Results - last 24 hr 11/08/19 11/08/19 Range/Units 12:20 12:20 WBC 18.80 H (4.0-11.0) K/uL RBC 4.06 L (4.30-5.90) M/uL Hgb 8.6 L (12.0-16.0) g/dL Hct 28.6 L (36.0-46.0) % MCV 70.4 L (80.0-98.0) fL MCH 21.2 L (27.0-32.0) pg MCHC 30.1 L (31.0-37.0) g/dL RDW Std Deviation 44.8 (28.0-62.0) fl RDW Coeff of Pete 18 H (11.0-15.0) % Plt Count 186 (150-400) K/uL MPV 10.60 (7.40-12.00) fL Nucleated RBC % 0.1 /100WBC Nucleated RBCs # 0 K/uL Blood Type A POSITIVE Antibody Screen NEGATIVE Med Orders - Current: Current Medications Discontinued Medications Butorphanol Tartrate (Stadol) 1 mg IVPUSH Q1H PRN PRN Reason: Pain Carboprost Tromethamine (Hemabate Ds) 250 mcg IM ASDIRECTED PRN PRN Reason: Post Hemorrhage Fentanyl (Sublimaze) Confirm Administered Dose 100 mcg .ROUTE .STK-MED ONE Stop: 11/08/19 12:33 Lactated Ringer's (Ringers, Lactated) 1,000 mls @ 150 mls/hr IV ASDIRECTED [facility] Last Admin: 11/08/19 12:10 Dose: 150 mls/hr Oxytocin/Sodium Chloride (Oxytocin 30 Unit/500 Ml-Ns) 30 unit in 500 mls @ 999 mls/hr IV TITRATE [facility] Tranexamic Acid 1,000 mg/ (Sodium Chloride) 110 mls @ 660 mls/hr IV ONETIME PRN PRN Reason: Bleeding Ropivacaine (Naropin 0.2%) Confirm Administered Dose 100 mls @ as directed .ROUTE .STK-MED ONE Stop: 11/08/19 12:33 Lidocaine HCl (Xylocaine 1%) 50 ml INJECT ONETIME PRN PRN Reason: Laceration repair Methylergonovine Maleate (Methergine) 0.2 mg IM ASDIRECTED PRN PRN Reason: Post Hemorrhage Misoprostol (Cytotec) 200 mcg PO ONETIME PRN PRN Reason: Post Hemorrhage Nalbuphine HCl (Nubain) 10 mg IVPUSH Q1H PRN PRN Reason: Pain (severe 7-10) Ondansetron HCl (Zofran) 4 mg IVPUSH Q6H PRN PRN Reason: Nausea/Vomiting Sodium Chloride (Saline Flush) 10 ml FLUSH ASDIRECTED PRN PRN Reason: Keep Vein Open Sodium Chloride (Saline Flush) 2.5 ml FLUSH ASDIRECTED PRN PRN Reason: Keep Vein Open Sodium Chloride (Normal Saline) 10 ml IV ASDIRECTED PRN PRN Reason: IV Use Sterile Water (Sterile Water For Irrigation) 1,000 ml IRR ASDIRECTED PRN PRN Reason: delivery - Exam General: Alert, Oriented Lungs: Normal Respiratory Effort GI/Abdominal Exam: Soft (Female) Exam: Normal External Exam, Normal Bimanual Exam, Vaginal Bleeding Back Exam: Normal Inspection Extremities: Normal Inspection, Normal Range of Motion, Non-Tender, No Pedal Edema Skin: Warm, Dry, Intact Wound/Incisions: Healing Well Neurological: No New Focal Deficit, Normal Speech, Normal Tone Psy/Mental Status: Alert, Normal Affect, Normal Mood - Problem List & Annotations (1) Supervision of normal IUP (intrauterine ) in multigravida SNOMED Code(s): 169014957, 261270864, 069752790 Code(s): Z34.80 - ENCOUNTER FOR SUPRVSN OF NORMAL , UNSP TRIMESTER Status: Acute Priority: High Current Visit: Yes Qualifiers: Trimester: third trimester Qualified Code(s): Z34.83 - Encounter for supervision of other normal , third trimester (2) (normal spontaneous vaginal delivery) SNOMED Code(s): 70053523, 220675367 Code(s): O80 - ENCOUNTER FOR FULL-TERM UNCOMPLICATED DELIVERY Status: Acute Priority: High Current Visit: Yes - Problem List Review Problem List Initiated/Reviewed/Updated: Yes - My Orders Last 24 Hours: My Active Orders 11/08/19 11:52 May Shower [RC] ASDIRECTED Notify Provider [RC] PRN Up ad Ashley [RC] ASDIRECTED Vital Signs [RC] PER UNIT ROUTINE 11/08/19 12:20 RAPID PLASMA REAGIN, QUANT [REF] Routine 11/08/19 13:43 May Shower [RC] ASDIRECTED Up ad Ashley [RC] ASDIRECTED Vital Signs [RC] PER UNIT ROUTINE Acetaminophen [Tylenol Extra Strength] 1,000 mg PO Q4H PRN Acetaminophen [Tylenol Extra Strength] 500 mg PO Q4H PRN Benzocaine/Menthol [Dermoplast Pain Relief 20%-0.5% [place]] 78 gm TOP ASDIRECTED PRN Docusate Sodium [Colace] 100 mg PO BID PRN Ibuprofen [Motrin] 400 mg PO Q4H PRN Ibuprofen [Motrin] 800 mg PO Q6H PRN Lanolin [Lansinoh HPA] See Dose Instructions TOP ASDIRECTED PRN Witch Maite [Tucks] 1 pad TOP ASDIRECTED PRN bisacodyL [Dulcolax] 10 mg RECTAL ONETIME PRN oxyCODONE 5 mg PO Q2H PRN Assess Lochia [WOMSER] Per Unit Routine Assess Uterine Involution [WOMSER] Per Unit Routine Peripheral IV Discontinue [OM.PC] Routine Resuscitation Status Routine 11/08/19 Lunch Regular Diet [DIET] 11/09/19 05:11 HEMOGLOBIN/HEMATOCRIT,HH [HEME] Timed - Plan Plan:: Labor A: 24yo EDC 11/15/2018 39wks Comes in active labor, A+, RI, GBS neg. P: Admit, epidural now, anticipate , Dr Escalona updated Delivery A: of viable female, APGARS 8/9, Wt pending. 1st deg left labial lac with repair. EBL 100cc. Stable P: Routine pp plan of care
[2019-11-08] MEDS: Ibuprofen 800 MG Tab PO PRN (18:09)
[2019-11-08] MEDS: Acetaminophen 500 MG Tab PO PRN (20:10)
[2019-11-09] MEDS: Ibuprofen 800 MG Tab PO PRN ×2 (01:13→09:04)
[2019-11-09] MEDS: Acetaminophen 500 MG Tab PO PRN ×2 (04:10→14:38)
--- NOTE | 2019-11-09 09:03 | PCM.DCSUM1 ---
Discharge Summary - Hospital Course Diagnosis: Stroke: No - Discharge Data Discharge Date: 11/09/19 Discharge Disposition: Home, Self-Care 01 Condition: Good - Referral to Home Health Primary Care Physician: Keo Escalona MD - Discharge Diagnosis/Problem(s) (1) Supervision of normal IUP (intrauterine ) in multigravida SNOMED Code(s): 826938475, 614058380, 457204510 ICD Code: Z34.80 - ENCOUNTER FOR SUPRVSN OF NORMAL , UNSP TRIMESTER Status: Acute Priority: High Current Visit: Yes Qualifiers: Trimester: third trimester Qualified Code(s): Z34.83 - Encounter for supervision of other normal , third trimester (2) (normal spontaneous vaginal delivery) SNOMED Code(s): 10032101, 511019878 ICD Code: O80 - ENCOUNTER FOR FULL-TERM UNCOMPLICATED DELIVERY Status: Acute Priority: High Current Visit: Yes - Patient Instructions Diet: Usual Diet as Tolerated Activity: As Tolerated, No Strenuous Activities, Rest and Relax Today Driving: May Drive Today Showering/Bathing: May Shower Notify Provider of: Fever, Increased Pain, Nausea and/or Vomiting Other/Special Instructions: Discharge home with . Follow up in 6 weeks for visit. - Discharge Plan *PRESCRIPTION DRUG MONITORING PROGRAM REVIEWED*: Not Applicable *COPY OF PRESCRIPTION DRUG MONITORING REPORT IN PATIENT FRANCISCO: Not Applicable Home Medications: Home Meds . [No Known Home Meds] 09/12/18 [History] Oxygen Therapy Mode: Room Air Referrals: [facility] [Outside] Keo Escalona MD [Primary Care Provider] - 12/20/19 1:30 pm - Discharge Summary/Plan Comment DC Time >30 min.: Yes - General Info Date of Service: 11/09/19 Admission Dx/Problem (Free Text: Patient Status Order with Admit Dx/Problem 11/08/19 11:52 Patient Status [ADT] Routine Admission Diagnosis/Problem Admission Diagnosis/Problem - planned 11/08/19 12:33 24yo EDC 11/15/2018 39wks Comes in active labor, A+, RI, GBS neg. Functional Status: Reports: Pain Controlled, Tolerating Diet, Ambulating, Urinating - Review of Systems General: Reports: No Symptoms HEENT: Reports: No Symptoms Pulmonary: Reports: No Symptoms Cardiovascular: Reports: No Symptoms Gastrointestinal: Reports: No Symptoms Genitourinary: Reports: No Symptoms Musculoskeletal: Reports: No Symptoms Skin: Reports: No Symptoms Neurological: Reports: No Symptoms Psychiatric: Reports: No Symptoms - Patient Data Vitals - Most Recent: Last Vital Signs Temp 36.2 C 11/09/19 04:57 Pulse 85 11/09/19 04:57 Resp 18 11/09/19 04:57 BP 131/79 11/09/19 04:57 Pulse Ox 99 11/09/19 04:57 Weight - Most Recent: 96.162 kg Lab Results - Last 24 hrs: Laboratory Results - last 24 hr 11/08/19 11/08/19 11/09/19 Range/Units 12:20 12:20 06:40 WBC 18.80 H (4.0-11.0) K/uL RBC 4.06 L (4.30-5.90) M/uL Hgb 8.6 L 7.2 L (12.0-16.0) g/dL Hct 28.6 L 24.2 L (36.0-46.0) % MCV 70.4 L (80.0-98.0) fL MCH 21.2 L (27.0-32.0) pg MCHC 30.1 L (31.0-37.0) g/dL RDW Std Deviation 44.8 (28.0-62.0) fl RDW Coeff of Pete 18 H (11.0-15.0) % Plt Count 186 (150-400) K/uL MPV 10.60 (7.40-12.00) fL Nucleated RBC % 0.1 /100WBC Nucleated RBCs # 0 K/uL Blood Type A POSITIVE Antibody Screen NEGATIVE Med Orders - Current: Current Medications Acetaminophen (Tylenol Extra Strength) 500 mg PO Q4H PRN PRN Reason: Pain Acetaminophen (Tylenol Extra Strength) 1,000 mg PO Q4H PRN PRN Reason: Pain Last Admin: 11/09/19 04:10 Dose: 1,000 mg Benzocaine/Menthol (Dermoplast Pain Relief 20%-0.5% [place]) 78 gm TOP ASDIRECTED PRN PRN Reason: Perineal Comfort Measure Bisacodyl (Dulcolax) 10 mg RECTAL ONETIME PRN PRN Reason: Constipation Docusate Sodium (Colace) 100 mg PO BID PRN PRN Reason: Constipation Emollient Ointment (Lansinoh Hpa) 0 gm TOP ASDIRECTED PRN PRN Reason: Sore Nipples Ibuprofen (Motrin) 400 mg PO Q4H PRN PRN Reason: Pain Ibuprofen (Motrin) 800 mg PO Q6H PRN PRN Reason: Pain Last Admin: 11/09/19 01:13 Dose: 800 mg Oxycodone HCl (Oxycodone) 5 mg PO Q2H PRN PRN Reason: Pain Witch Maite (Tucks) 1 pad TOP ASDIRECTED PRN PRN Reason: comfort care Discontinued Medications Butorphanol Tartrate (Stadol) 1 mg IVPUSH Q1H PRN PRN Reason: Pain Carboprost Tromethamine (Hemabate Ds) 250 mcg IM ASDIRECTED PRN PRN Reason: Post Hemorrhage Fentanyl (Sublimaze) Confirm Administered Dose 100 mcg .ROUTE .Tyche ONE Stop: 11/08/19 12:33 Last Admin: 11/08/19 20:42 Dose: Not Given Lactated Ringer's (Ringers, Lactated) 1,000 mls @ 150 mls/hr IV ASDIRECTED [facility] Last Admin: 11/08/19 12:10 Dose: 150 mls/hr Oxytocin/Sodium Chloride (Oxytocin 30 Unit/500 Ml-Ns) 30 unit in 500 mls @ 999 mls/hr IV TITRATE [facility] Last Admin: 11/08/19 13:40 Dose: 999 mls/hr Tranexamic Acid 1,000 mg/ (Sodium Chloride) 110 mls @ 660 mls/hr IV ONETIME PRN PRN Reason: Bleeding Ropivacaine (Naropin 0.2%) Confirm Administered Dose 100 mls @ as directed .ROUTE .STBilldesk-MED ONE Stop: 11/08/19 12:33 Last Admin: 11/08/19 20:42 Dose: Not Given Lidocaine HCl (Xylocaine 1%) 50 ml INJECT ONETIME PRN PRN Reason: Laceration repair Methylergonovine Maleate (Methergine) 0.2 mg IM ASDIRECTED PRN PRN Reason: Post Hemorrhage Misoprostol (Cytotec) 200 mcg PO ONETIME PRN PRN Reason: Post Hemorrhage Nalbuphine HCl (Nubain) 10 mg IVPUSH Q1H PRN PRN Reason: Pain (severe 7-10) Ondansetron HCl (Zofran) 4 mg IVPUSH Q6H PRN PRN Reason: Nausea/Vomiting Sodium Chloride (Saline Flush) 10 ml FLUSH ASDIRECTED PRN PRN Reason: Keep Vein Open Sodium Chloride (Saline Flush) 2.5 ml FLUSH ASDIRECTED PRN PRN Reason: Keep Vein Open Sodium Chloride (Normal Saline) 10 ml IV ASDIRECTED PRN PRN Reason: IV Use Sterile Water (Sterile Water For Irrigation) 1,000 ml IRR ASDIRECTED PRN PRN Reason: delivery - Exam General: Reports: Alert, Oriented, Cooperative, No Acute Distress Lungs: Reports: Normal Respiratory Effort GI/Abdominal Exam: Soft, Pelvis Stable (Female) Exam: Deferred, Vaginal Bleeding Rectal (Female) Exam: Deferred Back Exam: Reports: Full Range of Motion Extremities: Normal Range of Motion, No Pedal Edema Skin: Reports: Warm, Dry, Intact Neurological: Reports: No New Focal Deficit, Normal Speech, Normal Tone, Sensation Intact Psy/Mental Status: Reports: Alert, Normal Affect, Normal Mood
== END 2019-11-09 17:35 | disposition home or self-care (01) | DRG 807 ==
LOC: MW.OBCHECK 11:46 → MW.OB 11:46 → OBSVTOIN 13:24 → MW.OBCHECK 13:29 → MW.OB 16:51
PROVIDERS: ADMIT Obstetrics & Gynecology; ATTEND Obstetrics & Gynecology
PROC: 10E0XZZ Delivery of Products of Conception, External Approach (ICD-10-PCS; principal; 2019-11-08)
PROC: 0HQ9XZZ Repair Perineum Skin, External Approach (ICD-10-PCS; 2019-11-08)
DX: O69.81X0 Labor and delivery complicated by cord around neck, without compression, not applicable or unspecified (principal); O77.0 Labor and delivery complicated by meconium in amniotic fluid; O70.0 First degree perineal laceration during delivery; Z37.0 Single live birth; Z3A.39 39 weeks gestation of pregnancy
CPT/HCPCS: 36415; 59025; 59409; 85014; 85018; 85027; 86593; 86850; 86900; 86901; A9270-GY; J2590; J2795; J3010; J7120

== ENCOUNTER 2020-03-29 22:12 | Emergency (ER) | payer SELFPAY ==
--- NOTE | 2020-03-29 22:32 | EDM.PDOC ---
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 She has a little cramping lower abdominal pain it radiates to her back. She has no nausea and vomiting. She has no problem with her bowels or bladder. There is no dysuria. She does not think it is possible that she is . Is been several years since her last baby. This baby she had she bled for 6 months afterwards. She did not need a transfusion. History of present illness: [] Review of systems: As per history of present illness and below otherwise all systems reviewed and negative. Past medical history: As per history of present illness and as reviewed below otherwise noncontributory. Surgical history: As per history of present illness and as reviewed below otherwise noncontributory. Social history: No reported history of drug or alcohol abuse. Family history: As per history of present illness and as reviewed below otherwise noncontributory. Physical exam: HEENT: Atraumatic, normocephalic, pupils reactive, negative for conjunctival pallor or scleral icterus, mucous membranes moist, throat clear, neck supple, nontender, trachea midline. Lungs: Clear to auscultation, breath sounds equal bilaterally, chest nontender. Heart: S1S2, regular, negative for clicks, rubs, or JVD. Abdomen: Soft, nondistended, nontender. Negative for masses or hepatosplenomegaly. Negative for costovertebral tenderness. Pelvis: Stable nontender. Genitourinary: Deferred. Rectal: Deferred. Extremities: Atraumatic, negative for cords or calf pain. Neurovascular unremarkable. Neuro: Awake, alert, oriented. Cranial nerves II through XII unremarkable. Cerebellum unremarkable. Motor and sensory unremarkable throughout. Exam nonfocal. Diagnostics: [] Therapeutics: [] Impression: [] Plan: [] Definitive disposition and diagnosis as appropriate pending reevaluation and review of above. lower abdomen Pain Score (Numeric/FACES): 6 - Related Data Allergies Allergy/AdvReac Type Severity Reaction Status Date / Time No Known Allergies Allergy Verified 03/29/20 22:31 Home Meds: Home Meds . 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: Social & Family History - Family History Cardiac: Reports: Hypertension OBGYN: Reports: - Caffeine Use Caffeine Use: Reports: Coffee, Soda ED ROS GENERAL - Review of Systems Review Of Systems: See Below ED EXAM, RENAL/ - Physical Exam Exam: See Below Course - Vital Signs Last Recorded V/S: Last Vital Signs Temp 96.2 F L 03/29/20 22:30 Pulse 79 03/30/20 00:23 Resp 16 03/30/20 00:23 BP 115/63 03/30/20 00:23 Pulse Ox 99 03/30/20 00:23 - Orders/Labs/Meds Orders: Active Orders 24 hr Category Date Time Status Sodium Chloride 0.9% [Saline Flush] Med 03/29/20 23:53 Active 10 ml FLUSH ASDIRECTED PRN Sodium Chloride 0.9% [Saline Flush] Med 03/29/20 23:53 Active 2.5 ml FLUSH ASDIRECTED PRN Saline Lock Insert [OM.PC] Stat Oth 03/29/20 23:53 Ordered Medication Orders Sodium Chloride (Saline Flush) 10 ml FLUSH ASDIRECTED PRN PRN Reason: Keep Vein Open Sodium Chloride (Saline Flush) 2.5 ml FLUSH ASDIRECTED PRN PRN Reason: Keep Vein Open Labs: Laboratory Tests 03/29/20 03/29/20 03/29/20 Range/Units 22:37 22:37 22:37 WBC 14.86 H (4.0-11.0) K/uL RBC 4.07 L (4.30-5.90) M/uL Hgb 10.7 L (12.0-16.0) g/dL Hct 33.0 L (36.0-46.0) % MCV 81.1 (80.0-98.0) fL MCH 26.3 L (27.0-32.0) pg MCHC 32.4 (31.0-37.0) g/dL RDW Std Deviation 46.1 (28.0-62.0) fl RDW Coeff of Pete 16 H (11.0-15.0) % Plt Count 252 (150-400) K/uL MPV 11.10 (7.40-12.00) fL Neut % (Auto) 78.2 (48.0-80.0) % Lymph % (Auto) 14.6 L (16.0-40.0) % [place] % (Auto) 6.1 (0.0-15.0) % Eos % (Auto) 1.0 (0.0-7.0) % Baso % (Auto) 0.1 (0.0-1.5) % Neut # (Auto) 11.6 H (1.4-5.7) K/uL Lymph # (Auto) 2.2 (0.6-2.4) K/uL [place] # (Auto) 0.9 H (0.0-0.8) K/uL Eos # (Auto) 0.2 (0.0-0.7) K/uL Baso # (Auto) 0.0 (0.0-0.1) K/uL Nucleated RBC % 0.0 /100WBC Nucleated RBCs # 0 K/uL Sodium 140 (136-145) mmol/L Potassium 4.6 (3.5-5.1) mmol/L Chloride 105 (98-107) mmol/L Carbon Dioxide 25.0 (21.0-32.0) mmol/L BUN 11 (7.0-18.0) mg/dL Creatinine 0.7 (0.6-1.0) mg/dL Est Cr Clr Drug Dosing 114.01 mL/min Estimated GFR (MDRD) > 60.0 ml/min Glucose 109 H (74-106) mg/dL Calcium 8.3 L (8.5-10.1) mg/dL Total Bilirubin 0.1 L (0.2-1.0) mg/dL AST 21 (15-37) IU/L ALT 24 (14-63) IU/L Alkaline Phosphatase 85 (46-116) U/L Total Protein 7.5 (6.4-8.2) g/dL Albumin 3.6 (3.4-5.0) g/dL Globulin 3.9 (2.6-4.0) g/dL Albumin/Globulin Ratio 0.9 (0.9-1.6) HCG, Quant 9076.0 mIU/mL Urine Color Urine Appearance Urine pH (5.0-8.0) Ur Specific [place] (1.001-1.035) Urine Protein (NEGATIVE) mg/dL Urine Glucose (UA) (NEGATIVE) mg/dL Urine Ketones (NEGATIVE) mg/dL Urine Occult Blood (NEGATIVE) Urine Nitrite (NEGATIVE) Urine Bilirubin (NEGATIVE) Urine Urobilinogen (<2.0) EU/dL Ur Leukocyte Esterase (NEGATIVE) Blood Type Antibody Screen 03/29/20 03/30/20 Range/Units 23:45 00:12 WBC (4.0-11.0) K/uL RBC (4.30-5.90) M/uL Hgb (12.0-16.0) g/dL Hct (36.0-46.0) % MCV (80.0-98.0) fL MCH (27.0-32.0) pg MCHC (31.0-37.0) g/dL RDW Std Deviation (28.0-62.0) fl RDW Coeff of Pete (11.0-15.0) % Plt Count (150-400) K/uL MPV (7.40-12.00) fL Neut % (Auto) (48.0-80.0) % Lymph % (Auto) (16.0-40.0) % [place] % (Auto) (0.0-15.0) % Eos % (Auto) (0.0-7.0) % Baso % (Auto) (0.0-1.5) % Neut # (Auto) (1.4-5.7) K/uL Lymph # (Auto) (0.6-2.4) K/uL [place] # (Auto) (0.0-0.8) K/uL Eos # (Auto) (0.0-0.7) K/uL Baso # (Auto) (0.0-0.1) K/uL Nucleated RBC % /100WBC Nucleated RBCs # K/uL Sodium (136-145) mmol/L Potassium (3.5-5.1) mmol/L Chloride (98-107) mmol/L Carbon Dioxide (21.0-32.0) mmol/L BUN (7.0-18.0) mg/dL Creatinine (0.6-1.0) mg/dL Est Cr Clr Drug Dosing mL/min Estimated GFR (MDRD) ml/min Glucose (74-106) mg/dL Calcium (8.5-10.1) mg/dL Total Bilirubin (0.2-1.0) mg/dL AST (15-37) IU/L ALT (14-63) IU/L Alkaline Phosphatase (46-116) U/L Total Protein (6.4-8.2) g/dL Albumin (3.4-5.0) g/dL Globulin (2.6-4.0) g/dL Albumin/Globulin Ratio (0.9-1.6) HCG, Quant mIU/mL Urine Color YELLOW Urine Appearance SLT CLOUDY Urine pH 5.5 (5.0-8.0) Ur Specific [place] >= 1.030 (1.001-1.035) Urine Protein NEGATIVE (NEGATIVE) mg/dL Urine Glucose (UA) NEGATIVE (NEGATIVE) mg/dL Urine Ketones NEGATIVE (NEGATIVE) mg/dL Urine Occult Blood NEGATIVE (NEGATIVE) Urine Nitrite NEGATIVE (NEGATIVE) Urine Bilirubin NEGATIVE (NEGATIVE) Urine Urobilinogen 0.2 (<2.0) EU/dL Ur Leukocyte Esterase NEGATIVE (NEGATIVE) Blood Type A POSITIVE Antibody Screen NEGATIVE Meds: Medications Generic Name Dose Route Start Last Admin Trade Name Freq PRN Reason Stop Dose Admin Sodium Chloride 10 ml 03/29/20 23:53 Saline Flush FLUSH ASDIRECTED PRN Keep Vein Open Sodium Chloride 2.5 ml 03/29/20 23:53 Saline Flush FLUSH ASDIRECTED PRN Keep Vein Open - Re-Assessments/Exams Free Text/Narrative Re-Assessment/Exam: 03/29/20 23:56 11:56 PM the patient was a little dizzy when she had a catheter for urine. She is not dizzy when she stands up. Blood pressure and pulse are stable. Plan to do an ultrasound because her is turned back positive. Departure - Departure Time of Disposition: 01:13 Disposition: Home, Self-Care 01 Condition: Good Clinical Impression: Threatened - Discharge Information Instructions: Threatened Miscarriage Referrals: PCP,None [Primary Care Provider] - Keo Escalona MD [Physician] - Forms: ED Department Discharge Additional Instructions: The following information is given to patients seen in the emergency department who are being discharged to home. This information is to outline your options for follow-up care. We provide all patients seen in our emergency department with a follow-up referral. The need for follow-up, as well as the timing and circumstances, are variable depending upon the specifics of your emergency department visit. If you don't have a primary care physician on staff, we will provide you with a referral. We always advise you to contact your personal physician following an emergency department visit to inform them of the circumstance of the visit and for follow-up with them and/or the need for any referrals to a consulting specialist. The emergency department will also refer you to a specialist when appropriate. This referral assures that you have the opportunity for follow-up care with a specialist. All of these measure are taken in an effort to provide you with optimal care, which includes your follow-up. Under all circumstances we always encourage you to contact your private physician who remains a resource for coordinating your care. When calling for follow-up care, please make the office aware that this follow-up is from your recent emergency room visit. If for any reason you are refused follow-up, please contact the [facility] Emergency Department at and asked to speak to the emergency department charge nurse. Return immediately if you are dizzy when you stands up, sweating, or passing out. Also return if you have severe increase in bleeding or pain. Have your laboratory repeated in 2 or 3 days and follow-up with your primary and heating and cooling technician. La siguiente informacin se proporciona a los pacientes atendidos en el departamento de emergencias que estn siendo dados de massimo a pizarro hogar. Esta informacin es para describir kamini opciones de atencin de seguimiento. Proporcionamos a todos los pacientes atendidos en nuestro departamento de emergencias moon referencia de seguimiento. La necesidad de seguimiento, as rigo el momento y las circunstancias, varan segn los detalles de pizarro visita al departamento de emergencias. Si no tiene un mdico de atencin primaria en el personal, le proporcionaremos moon referencia. Siempre le recomendamos que se comunique con pizarro mdico personal despus de moon visita al departamento de emergencias para informarles sobre la circunstancia de la visita y para el seguimiento con ellos y / o la necesidad de referencias a un especialista en consultora. El departamento de emergencias tambin lo derivar a un especialista cuando sea apropiado. Esta referencia le garantiza que tiene la oportunidad de recibir atencin de seguimiento con un especialista. Todas estas medidas se wendy en un esfuerzo por brindarle moon atencin ptima, que incluye pizarro seguimiento. En todas las circunstancias, siempre lo alentamos a que se comunique con pizarro mdico privado, que sigue siendo un recurso para coordinar pizarro atencin. Cuando llame para recibir atencin de seguimiento, informe a la oficina que vane seguimiento es de pizarro reciente visita a la crista de emergencias. Si por alguna razn se le niega el seguimiento, comunquese con el [facility]amento [facility] y solicite hablar con la enfermera encargada del departamento de emergencias. Regrese de inmediato si est mareado cuando se pone de pie, suda o se desmaya. Tamraphael regrese si tiene un aumento brittnee de sangrado o dolor. Jens que pizarro laboratorio se repita en 2 o 3 grubbs y jens un seguimiento con pizarro mdico de cabecera y gineclogo. Sepsis Event Note - Focused Exam Vital Signs: Vital Signs Temp Pulse Resp BP Pulse Ox 03/30/20 00:23 79 16 115/63 99 03/29/20 23:54 65 16 114/70 100 03/29/20 22:30 96.2 F L 83 18 110/72 98 Date Exam was Performed: 03/30/20 Time Exam was Performed: 01:13 - My Orders Last 24 Hours: My Active Orders 03/29/20 23:53 Sodium Chloride 0.9% [Saline Flush] 10 ml FLUSH ASDIRECTED PRN Sodium Chloride 0.9% [Saline Flush] 2.5 ml FLUSH ASDIRECTED PRN Saline Lock Insert [OM.PC] Stat - Assessment/Plan Last 24 Hours: My Active Orders 03/29/20 23:53 Sodium Chloride 0.9% [Saline Flush] 10 ml FLUSH ASDIRECTED PRN Sodium Chloride 0.9% [Saline Flush] 2.5 ml FLUSH ASDIRECTED PRN Saline Lock Insert [OM.PC] Stat
[2020-03-29 23:03] LABS: BLOOD UREA NITROGEN,BUN 11 mg/dL (7.0-18.0); CHLORIDE,CL 105 mmol/L (98-107); GLUCOSE RANDOM 109 mg/dL (74-106); POTASSIUM,K 4.6 mmol/L (3.5-5.1); SODIUM,NA 140 mmol/L (136-145)
[2020-03-29] MEDS ORDERED: Sodium Chloride 0.9% 10 ML Syringe FLUSH PRN (23:53)
[2020-03-29] MEDS ORDERED: Sodium Chloride 0.9% 2.5 ML Syringe FLUSH PRN (23:53)
--- NOTE | 2020-03-30 00:59 | US ---
INDICATION: . Vaginal bleeding TECHNIQUE: Ultrasound OB pelvis transvaginal. Real-time corral-scale imaging of the pelvis was performed. COMPARISON: None available FINDINGS: The endometrium is thickened and heterogeneous, measuring up to 1.6 cm, demonstrating increased Doppler flow. There is an irregular ovoid cystic area within the endometrium, measuring 1.0 x 0.4 cm. No pole or yolk sac are demonstrated. The endocervical canal is thickened. The right ovary measures 1.8 x 1.3 x 1.1 cm, containing a 4 mm ovoid echogenic focus, nonspecific, and the left ovary measures 2.1 x 1.5 x 2.9 cm, containing a 1.8 x 1.3 cm cyst/follicle. Ovarian Doppler flow is documented bilaterally. No significant free fluid is seen. IMPRESSION: A thickened, heterogeneous endometrium and thickened endocervical canal. A small cystic area within the endometrium, without a pole or yolk sac. The findings could represent a spontaneous in progress, however an early intrauterine gestation or an ectopic gestation are not excluded. Recommend correlation with beta hCG levels and a short-term follow-up study. Dictated by Sumeet Hermosillo MD @ 03/30/2020 12:54:47 AM Dictated by: Sumeet Hermosillo MD @ 03/30/2020 00:58:43 (Electronically Signed)
== END 2020-03-30 01:26 | disposition home or self-care (01) ==
LOC: MW.ED 22:12
DX: O20.0 Threatened abortion (principal)
CPT/HCPCS: 36415; 76801; 76801-26; 80053; 81003; 84702; 85025; 86850; 86900; 86901; 87491; 87591; 99283; 99284-25

== ENCOUNTER 2020-04-09 21:31 | Observation (INO) | payer SELFPAY ==
[2020-04-09] MEDS ORDERED: Sodium Chloride 0.9% 2.5 ML Syringe FLUSH PRN ×2 (21:36→21:40)
[2020-04-09] MEDS ORDERED: Sodium Chloride 0.9% 1,000 ML IV ONE (21:36)
[2020-04-09] MEDS ORDERED: Sodium Chloride 0.9% 10 ML Syringe FLUSH PRN ×2 (21:36→21:40)
[2020-04-09] MEDS ORDERED: Oxytocin 10 Units/1 ML SDV IM ONE (21:42)
--- NOTE | 2020-04-09 21:48 | EDM.PDOC ---
ED HPI GENERAL MEDICAL PROBLEM - General Chief Complaint: [employer] Problem Stated Complaint: VAGINAL BLEEDING Time Seen by Provider: 04/09/20 21:41 - History of Present Illness INITIAL COMMENTS - FREE TEXT/NARRATIVE: History of present illness: [Patient presents via EMS with vaginal bleeding. She apparently had a miscarriage around 30 March approximately 9 days ago. She was at home today and suddenly had a large volume of vaginal bleeding suddenly collapsed and then was difficult to arouse and 911 was called paramedics found her arousable to deep painful stimuli in a puddle of blood at home with very low blood pressure of 60 systolic initially. And supported emergently to the hospital she was given TXA and a 150 mill bolus of saline and a milligram of atropine for bradycardia in route on arrival she is arousable to verbal and tactile stimuli her blood pressure has improved to the 1 teens systolically. Bolused with normal saline 10 oxytocin were given IM. She does not speak [place] but her is here to translate for her and he states that she is a L3. ] Review of systems: As per history of present illness and below otherwise all systems reviewed and negative. Past medical history: As per history of present illness and as reviewed below otherwise noncontributory. Surgical history: As per history of present illness and as reviewed below otherwise noncontributory. Social history: No reported history of drug or alcohol abuse. Family history: As per history of present illness and as reviewed below otherwise noncontributory. Physical exam: HEENT: Atraumatic, normocephalic, pupils reactive, negative for conjunctival pallor or scleral icterus, mucous membranes moist, throat clear, neck supple, nontender, trachea midline. Lungs: Clear to auscultation, breath sounds equal bilaterally, chest nontender. Heart: S1S2, regular, negative for clicks, rubs, or JVD. Abdomen: Soft, nondistended, nontender. Negative for masses or hepatosplenomegaly. Negative for costovertebral tenderness. Pelvis: Stable nontender. Genitourinary: Deferred. Rectal: Deferred. Extremities: Atraumatic, negative for cords or calf pain. Neurovascular unremarkable. Neuro: Awake, alert, oriented. Cranial nerves II through XII unremarkable. Cerebellum unremarkable. Motor and sensory unremarkable throughout. Exam nonfocal. Diagnostics: [] Therapeutics: [] Impression: Vaginal bleeding, hypotension [] Plan: Patient will initially be resuscitated oxytocin given she will be evaluated with ultrasound and quant hCG type and screen CBC chemistry and reassessed. [] Definitive disposition and diagnosis as appropriate pending reevaluation and review of above. - Related Data Allergies Allergy/AdvReac Type Severity Reaction Status Date / Time No Known Allergies Allergy Verified 04/09/20 21:56 Home Meds: Home Meds . [No Known Home Meds] 09/12/18 [History] Past Medical History - Past Health History Medical/Surgical History: Denies Medical/Surgical History HEENT History: Reports: None Cardiovascular History: Reports: None Respiratory History: Reports: None Gastrointestinal History: Reports: None Genitourinary History: Reports: None [employer] History: Reports: Musculoskeletal History: Reports: None Neurological History: Reports: None Psychiatric History: Reports: None Endocrine/Metabolic History: Reports: None Hematologic History: Reports: None Immunologic History: Reports: None Oncologic (Cancer) History: Reports: None Dermatologic History: Reports: None - Infectious Disease History Infectious Disease History: Reports: None - Past Surgical History Head Surgeries/Procedures: Reports: None HEENT Surgical History: Reports: None Cardiovascular Surgical History: Reports: None Respiratory Surgical History: Reports: None GI Surgical History: Reports: None Female Surgical History: Reports: None Endocrine Surgical History: Reports: None Neurological Surgical History: Reports: None Musculoskeletal Surgical History: Reports: None Oncologic Surgical History: Reports: None Dermatological Surgical History: Reports: None Social & Family History - Family History Family Medical History: Noncontributory Cardiac: Reports: Hypertension OBGYN: Reports: - Caffeine Use Caffeine Use: Reports: Coffee, Soda ED ROS GENERAL - Review of Systems Review Of Systems: See Below ED EXAM, GENERAL - Physical Exam Exam: See Below EKG INTERPRETATION EKG Interpretation Comments: EKG is a normal sinus rhythm with a rate of 68 bpm no ischemic changes normal EKG read and interpreted by me Course - Vital Signs Text/Narrative:: Critical care 37 minutes for acute hypotension and vaginal bleeding. This included initial resuscitation with fluids Pitocin as well as interpretation of EKG rhythm strips lab work close reassessment of patient discussion with consultants does not include separately billable procedures Patient responded well to fluid boluses and her blood pressure is maintained throughout her ED visit. Her H&H was low at 7.9 and 26. Ultrasound not show any evidence of free fluid in the abdomen there is no evidence of a fetus on this repeat ultrasound compared to 9 days ago. Patient has been typed and crossed for 2 units. Will repeat an H&H at approximately 1 AM Papito the case with 1:55 PM he will admit the patient to telemetry. Last Recorded V/S: Last Vital Signs Temp 36.7 C 04/09/20 21:31 Pulse 105 H 04/09/20 22:30 Resp 12 04/09/20 22:30 BP 119/66 04/09/20 22:30 Pulse Ox 100 04/09/20 22:30 - Orders/Labs/Meds Orders: Active Orders 24 hr Category Date Time Status Cardiac Monitoring [RC] . DIRECTED Care 04/09/20 21:36 Active EKG Documentation Completion [RC] STAT Care 04/09/20 21:36 Active CULTURE URINE [RM] Stat Lab 04/09/20 23:00 Received Sodium Chloride 0.9% [Saline Flush] Med 04/09/20 21:36 Active 10 ml FLUSH ASDIRECTED PRN Sodium Chloride 0.9% [Saline Flush] Med 04/09/20 21:40 Active 10 ml FLUSH ASDIRECTED PRN Sodium Chloride 0.9% [Saline Flush] Med 04/09/20 21:36 Active 2.5 ml FLUSH ASDIRECTED PRN Sodium Chloride 0.9% [Saline Flush] Med 04/09/20 21:40 Active 2.5 ml FLUSH ASDIRECTED PRN Saline Lock Insert [OM.PC] Stat Oth 04/09/20 21:36 Ordered Saline Lock Insert [OM.PC] Stat Oth 04/09/20 21:40 Ordered Medication Orders Sodium Chloride (Saline Flush) 10 ml FLUSH ASDIRECTED PRN PRN Reason: Keep Vein Open Last Admin: 04/09/20 21:47 Dose: 10 ml Sodium Chloride (Saline Flush) 2.5 ml FLUSH ASDIRECTED PRN PRN Reason: Keep Vein Open Last Admin: 04/09/20 21:47 Dose: 2.5 ml Sodium Chloride (Saline Flush) 10 ml FLUSH ASDIRECTED PRN PRN Reason: Keep Vein Open Last Admin: 04/09/20 21:47 Dose: 10 ml Sodium Chloride (Saline Flush) 2.5 ml FLUSH ASDIRECTED PRN PRN Reason: Keep Vein Open Last Admin: 04/09/20 21:47 Dose: 2.5 ml Labs: Laboratory Tests 04/09/20 04/09/20 04/09/20 Range/Units 21:37 21:37 21:37 WBC 11.35 H (4.0-11.0) K/uL RBC 3.17 L (4.30-5.90) M/uL Hgb 7.9 L (12.0-16.0) g/dL Hct 26.2 L (36.0-46.0) % MCV 82.6 (80.0-98.0) fL MCH 24.9 L (27.0-32.0) pg MCHC 30.2 L (31.0-37.0) g/dL RDW Std Deviation 45.7 (28.0-62.0) fl RDW Coeff of Pete 15 (11.0-15.0) % Plt Count 146 L (150-400) K/uL MPV 11.00 (7.40-12.00) fL Neut % (Auto) 71.9 (48.0-80.0) % Lymph % (Auto) 21.3 (16.0-40.0) % Dunn % (Auto) 5.8 (0.0-15.0) % Eos % (Auto) 0.9 (0.0-7.0) % Baso % (Auto) 0.1 (0.0-1.5) % Neut # (Auto) 8.2 H (1.4-5.7) K/uL Lymph # (Auto) 2.4 (0.6-2.4) K/uL Dunn # (Auto) 0.7 (0.0-0.8) K/uL Eos # (Auto) 0.1 (0.0-0.7) K/uL Baso # (Auto) 0.0 (0.0-0.1) K/uL Nucleated RBC % 0.0 /100WBC Nucleated RBCs # 0 K/uL INR 1.07 APTT (18.6-31.3) SEC Sodium 138 (136-145) mmol/L Potassium 4.0 (3.5-5.1) mmol/L Chloride 104 (98-107) mmol/L Carbon Dioxide 22.0 (21.0-32.0) mmol/L BUN 9 (7.0-18.0) mg/dL Creatinine 0.7 (0.6-1.0) mg/dL Est Cr Clr Drug Dosing 114.01 mL/min Estimated GFR (MDRD) > 60.0 ml/min Glucose 114 H (74-106) mg/dL Calcium 7.8 L (8.5-10.1) mg/dL Total Bilirubin 0.4 (0.2-1.0) mg/dL AST 33 (15-37) IU/L ALT 21 (14-63) IU/L Alkaline Phosphatase 74 (46-116) U/L Total Protein 7.0 (6.4-8.2) g/dL Albumin 3.4 (3.4-5.0) g/dL Globulin 3.6 (2.6-4.0) g/dL Albumin/Globulin Ratio 0.9 (0.9-1.6) HCG, Quant mIU/mL Urine Color Urine Appearance Urine pH (5.0-8.0) Ur Specific [place] (1.001-1.035) Urine Protein (NEGATIVE) mg/dL Urine Glucose (UA) (NEGATIVE) mg/dL Urine Ketones (NEGATIVE) mg/dL Urine Occult Blood (NEGATIVE) Urine Nitrite (NEGATIVE) Urine Bilirubin (NEGATIVE) Urine Urobilinogen (<2.0) EU/dL Ur Leukocyte Esterase (NEGATIVE) Urine RBC (0-2/HPF) Urine WBC (0-5/HPF) Ur Epithelial Cells (NONE-FEW) Urine Bacteria (NEGATIVE) Urinalysis Comment Blood Type Antibody Screen 04/09/20 04/09/20 04/09/20 Range/Units 21:37 21:37 21:57 WBC (4.0-11.0) K/uL RBC (4.30-5.90) M/uL Hgb (12.0-16.0) g/dL Hct (36.0-46.0) % MCV (80.0-98.0) fL MCH (27.0-32.0) pg MCHC (31.0-37.0) g/dL RDW Std Deviation (28.0-62.0) fl RDW Coeff of Pete (11.0-15.0) % Plt Count (150-400) K/uL MPV (7.40-12.00) fL Neut % (Auto) (48.0-80.0) % Lymph % (Auto) (16.0-40.0) % Dunn % (Auto) (0.0-15.0) % Eos % (Auto) (0.0-7.0) % Baso % (Auto) (0.0-1.5) % Neut # (Auto) (1.4-5.7) K/uL Lymph # (Auto) (0.6-2.4) K/uL Dunn # (Auto) (0.0-0.8) K/uL Eos # (Auto) (0.0-0.7) K/uL Baso # (Auto) (0.0-0.1) K/uL Nucleated RBC % /100WBC Nucleated RBCs # K/uL INR APTT 17.6 L (18.6-31.3) SEC Sodium (136-145) mmol/L Potassium (3.5-5.1) mmol/L Chloride (98-107) mmol/L Carbon Dioxide (21.0-32.0) mmol/L BUN (7.0-18.0) mg/dL Creatinine (0.6-1.0) mg/dL Est Cr Clr Drug Dosing mL/min Estimated GFR (MDRD) ml/min Glucose (74-106) mg/dL Calcium (8.5-10.1) mg/dL Total Bilirubin (0.2-1.0) mg/dL AST (15-37) IU/L ALT (14-63) IU/L Alkaline Phosphatase (46-116) U/L Total Protein (6.4-8.2) g/dL Albumin (3.4-5.0) g/dL Globulin (2.6-4.0) g/dL Albumin/Globulin Ratio (0.9-1.6) HCG, Quant 2436.0 mIU/mL Urine Color Urine Appearance Urine pH (5.0-8.0) Ur Specific [place] (1.001-1.035) Urine Protein (NEGATIVE) mg/dL Urine Glucose (UA) (NEGATIVE) mg/dL Urine Ketones (NEGATIVE) mg/dL Urine Occult Blood (NEGATIVE) Urine Nitrite (NEGATIVE) Urine Bilirubin (NEGATIVE) Urine Urobilinogen (<2.0) EU/dL Ur Leukocyte Esterase (NEGATIVE) Urine RBC (0-2/HPF) Urine WBC (0-5/HPF) Ur Epithelial Cells (NONE-FEW) Urine Bacteria (NEGATIVE) Urinalysis Comment Blood Type A POSITIVE Antibody Screen NEGATIVE 04/09/20 Range/Units 23:00 WBC (4.0-11.0) K/uL RBC (4.30-5.90) M/uL Hgb (12.0-16.0) g/dL Hct (36.0-46.0) % MCV (80.0-98.0) fL MCH (27.0-32.0) pg MCHC (31.0-37.0) g/dL RDW Std Deviation (28.0-62.0) fl RDW Coeff of Pete (11.0-15.0) % Plt Count (150-400) K/uL MPV (7.40-12.00) fL Neut % (Auto) (48.0-80.0) % Lymph % (Auto) (16.0-40.0) % Dunn % (Auto) (0.0-15.0) % Eos % (Auto) (0.0-7.0) % Baso % (Auto) (0.0-1.5) % Neut # (Auto) (1.4-5.7) K/uL Lymph # (Auto) (0.6-2.4) K/uL Dunn # (Auto) (0.0-0.8) K/uL Eos # (Auto) (0.0-0.7) K/uL Baso # (Auto) (0.0-0.1) K/uL Nucleated RBC % /100WBC Nucleated RBCs # K/uL INR APTT (18.6-31.3) SEC Sodium (136-145) mmol/L Potassium (3.5-5.1) mmol/L Chloride (98-107) mmol/L Carbon Dioxide (21.0-32.0) mmol/L BUN (7.0-18.0) mg/dL Creatinine (0.6-1.0) mg/dL Est Cr Clr Drug Dosing mL/min Estimated GFR (MDRD) ml/min Glucose (74-106) mg/dL Calcium (8.5-10.1) mg/dL Total Bilirubin (0.2-1.0) mg/dL AST (15-37) IU/L ALT (14-63) IU/L Alkaline Phosphatase (46-116) U/L Total Protein (6.4-8.2) g/dL Albumin (3.4-5.0) g/dL Globulin (2.6-4.0) g/dL Albumin/Globulin Ratio (0.9-1.6) HCG, Quant mIU/mL Urine Color YELLOW Urine Appearance CLEAR Urine pH 6.5 (5.0-8.0) Ur Specific [place] 1.025 (1.001-1.035) Urine Protein 30 H (NEGATIVE) mg/dL Urine Glucose (UA) NEGATIVE (NEGATIVE) mg/dL Urine Ketones NEGATIVE (NEGATIVE) mg/dL Urine Occult Blood TRACE-INTACT H (NEGATIVE) Urine Nitrite NEGATIVE (NEGATIVE) Urine Bilirubin NEGATIVE (NEGATIVE) Urine Urobilinogen 0.2 (<2.0) EU/dL Ur Leukocyte Esterase TRACE H (NEGATIVE) Urine RBC 1-2 (0-2/HPF) Urine WBC 0-1 (0-5/HPF) Ur Epithelial Cells RARE (NONE-FEW) Urine Bacteria RARE (NEGATIVE) Urinalysis Comment Blood Type Antibody Screen Meds: Medications Generic Name Dose Route Start Last Admin Trade Name Freq PRN Reason Stop Dose Admin Sodium Chloride 10 ml 04/09/20 21:36 04/09/20 21:47 Saline Flush FLUSH 10 ml ASDIRECTED PRN Administration Keep Vein Open Sodium Chloride 2.5 ml 04/09/20 21:36 04/09/20 21:47 Saline Flush FLUSH 2.5 ml ASDIRECTED PRN Administration Keep Vein Open Sodium Chloride 10 ml 04/09/20 21:40 04/09/20 21:47 Saline Flush FLUSH 10 ml ASDIRECTED PRN Administration Keep Vein Open Sodium Chloride 2.5 ml 04/09/20 21:40 04/09/20 21:47 Saline Flush FLUSH 2.5 ml ASDIRECTED PRN Administration Keep Vein Open Discontinued Medications Generic Name Dose Route Start Last Admin Trade Name Freq PRN Reason Stop Dose Admin Sodium Chloride 1,000 mls @ 999 mls/hr 04/09/20 21:36 04/09/20 21:45 Normal Saline IV 04/09/20 22:36 999 mls/hr STAT ONE Administration Oxytocin 10 unit 04/09/20 21:42 04/09/20 21:45 Pitocin IM 04/09/20 21:43 10 unit ONETIME ONE Administration Departure - Departure Time of Disposition: 00:01 Disposition: Refer to Observation Condition: Fair Clinical Impression: Complete , Nonmenstrual vaginal bleeding Syncope Qualifiers: Syncope type: unspecified Qualified Code(s): R55 - Syncope and collapse Hypotension Qualifiers: Hypotension type: unspecified hypotension type Qualified Code(s): I95.9 - Hypotension, unspecified - Discharge Information *PRESCRIPTION DRUG MONITORING PROGRAM REVIEWED*: Not Applicable *COPY OF PRESCRIPTION DRUG MONITORING REPORT IN PATIENT FRANCISCO: Not Applicable Referrals: PCP,None [Primary Care Provider] - Forms: ED Department Discharge Sepsis Event Note - Focused Exam Vital Signs: Vital Signs Temp Pulse Resp BP Pulse Ox 04/09/20 22:30 105 H 12 119/66 100 04/09/20 22:00 97 12 115/65 100 04/09/20 21:40 79 10 L 120/72 100 04/09/20 21:31 36.7 C 79 10 L 142/71 H 100 Date Exam was Performed: 04/09/20 Time Exam was Performed: 23:58
[2020-04-09 22:17] LABS: BLOOD UREA NITROGEN,BUN 9 mg/dL (7.0-18.0); CHLORIDE,CL 104 mmol/L (98-107); GLUCOSE RANDOM 114 mg/dL (74-106); SODIUM,NA 138 mmol/L (136-145)
--- NOTE | 2020-04-09 23:08 | US ---
INDICATION: Heavy bleeding TECHNIQUE: Ultrasound pelvis transabdominal and transvaginal for better assessment or to better visualize the endometrium. Real time sonographic images with Spectral and color Doppler imaging of the ovaries were obtained. COMPARISON: 03/30/2020 FINDINGS: Uterus: size cm. Normal echotexture of the myometrium. No masses. Endometrium: Transvaginal imaging was performed to better evaluate the endometrium. 2.0 mm in thickness with internal echoes at the level of the lower uterine segment. Right ovary: 1.3 centimeter x 1.4 centimeter x 2.4 centimeter. No ovarian or adnexal masses. Normal arterial and venous blood flow. Left ovary: 3.2 centimeter x 1.9 centimeter x 1.4 centimeter. No ovarian or adnexal masses. Normal arterial and venous blood flow. Cul-de-sac: No significant free fluid. IMPRESSION: Thickened endometrium with internal echoes involving the lower uterine segment. No evidence for gestational sac. Dictated by Shine Vega MD @ 04/09/2020 11:05:40 PM Dictated by: Shine Vega MD @ 04/09/2020 23:06:54 (Electronically Signed)
[2020-04-10] MEDS ORDERED: Ondansetron 4 MG/2 ML SDV IVPUSH ONE (00:06)
[2020-04-10] MEDS: Sodium Chloride 0.9% 1,000 ML IV SCH ×3 (00:28→12:32)
[2020-04-10] MEDS ORDERED: Acetaminophen 325 MG Tab PO PRN (01:44)
[2020-04-10] MEDS ORDERED: Ondansetron 4 MG/2 ML SDV IVPUSH PRN (01:45)
--- NOTE | 2020-04-10 16:05 | CONS ---
DATE OF CONSULTATION: 04/10/2020 DATE OF : 1995 PRIMARY CARE PHYSICIAN: None PCP Ms. Magda Rogers is a 25-year-old patient. She is 10 weeks' . She was supposed to have an appointment into the office. Her is complicated to be a blighted ovum. However, she presented in the emergency room with severe vaginal bleeding and passing the fetus and the products of conception at home. In the emergency room, she had an ultrasound which shows complete miscarriage and the uterus was empty. However, the patient had an episode of hypotension, and she required resuscitation in the emergency room with IV fluid. By the time she was evaluated and resuscitated in the emergency room, her bleeding was tremendously slowed down, it was almost stopped. I was consulted and because of the patient having episode of hypotension, we elected to admit her to extended observation and possible blood transfusion. Later on, her repeat hemoglobin was 7.9 and hematocrit 26.2, and the patient dropped to a hemoglobin of 6.3 and hematocrit of 20.1, and the patient because of the her hypotensive episode, we elected to transfuse her. The patient got transfused 2 unit of packed cells and her hemoglobin martina to 8.6 and hematocrit 26.8, which was almost equivalent at the time when she came to the emergency room. The patient was ambulatory. Her vital signs stable. She is not orthostatic. She is not bleeding. I am sending her home today with instruction for her to have iron and vitamin to replace the iron loss that she had, and the patient is to have an appointment into the office in 1 week for followup. RONAN / EVERARDO /[id number]
== END 2020-04-10 14:15 | disposition home or self-care (01) ==
LOC: MW.ED 21:31 → MW.MS 04-10 00:03
PROVIDERS: ADMIT Obstetrics & Gynecology; ATTEND Obstetrics & Gynecology
DX: O03.9 Complete or unspecified spontaneous abortion without complication (principal); I95.9 Hypotension, unspecified
CPT/HCPCS: 36415; 36430; 76857; 80053; 81001; 84702; 85014; 85018; 85025; 85027; 85610; 85730; 86850; 86900; 86901; 86920; 86921; 86922; 87086; 93005; 96360; 96372; 99285; J2405; J2590; J7030; P9016; 99291

== ENCOUNTER 2020-04-12 14:52 | Observation (INO) | payer MEDICARE, OTHER ==
[2020-04-12] MEDS ORDERED: Sodium Chloride 0.9% 1,000 ML IV ONE (15:03)
[2020-04-12] MEDS ORDERED: Sodium Chloride 0.9% 10 ML Syringe FLUSH PRN (15:03)
[2020-04-12] MEDS ORDERED: Sodium Chloride 0.9% 2.5 ML Syringe FLUSH PRN (15:03)
--- NOTE | 2020-04-12 15:43 | CR ---
Chest: Frontal view of the chest was obtained in AP projection. Comparison: No prior study. Heart size and mediastinum are normal. Lungs are clear no acute parenchymal change. Bony structures are grossly intact. Impression: 1. Nothing acute is seen on AP chest x-ray. Diagnostic code #1 This report was dictated in MDT
[2020-04-12 15:45] LABS: BLOOD UREA NITROGEN,BUN 5 mg/dL (7.0-18.0); CARBON DIOXIDE,CO2 30.3 mmol/L (21.0-32.0); CHLORIDE,CL 106 mmol/L (98-107); GLUCOSE RANDOM 98 mg/dL (74-106); POTASSIUM,K 3.5 mmol/L (3.5-5.1); SODIUM,NA 143 mmol/L (136-145)
[2020-04-12] MEDS ORDERED: Lactated Ringers 1,000 ML IV ONE (16:00)
--- NOTE | 2020-04-12 16:32 | EDM.PDOC ---
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 She was recently discharged after being told she was undergoing a miscarriage, she was given 2 units of PRBC for hemoglobin for anemia, she was discharged with a hemoglobin of 8.6 on . yesterday she soaked through 3 pads, today she soaked through 4 pads. She admits to subjective fevers and nausea. She denies vomiting, chest pain, shortness of breath. ROS: A 10-point review of systems, other than pertinent positives and negatives as stated per HPI, is otherwise negative PHYSICAL EXAM General: AOx4, GCS = 15, mild distress Skin: Pale HEENT: dry mucous membrane Neck: supple, no meningismus, no Kernig or Brudzinski Cardiac: S1S2 RRR Respiratory: CTAB, no crackles or rales, no wheezing Abdomen: Soft, suprapubic ttp, no rebound or guarding, nondistended, no pulsatile mass. : Profuse bleeding in the vaginal vault with clots Back: nontender Musculoskeletal: NVI distally, no deformity Neuro: No focal deficits. MEDICAL DECISION MAKING: I reviewed the patients past medical records, lab and radiographic findings. I discussed the case with family members. My differential diagnosis included: - Related Data Allergies Allergy/AdvReac Type Severity Reaction Status Date / Time No Known Allergies Allergy Verified 04/12/20 14:58 Home Meds: Home Meds . 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 . Per pt had problems with 2nd in [place], was given meds to keep and went full term. Musculoskeletal History: Reports: None Neurological History: Reports: None Psychiatric History: Reports: None Endocrine/Metabolic History: Reports: None Hematologic History: Reports: None Immunologic History: Reports: None Oncologic (Cancer) History: Reports: None Dermatologic History: Reports: None - Infectious Disease History Infectious Disease History: Reports: None - Past Surgical History Head Surgeries/Procedures: Reports: None HEENT Surgical History: Reports: None Cardiovascular Surgical History: Reports: None Respiratory Surgical History: Reports: None GI Surgical History: Reports: None Female Surgical History: Reports: None Endocrine Surgical History: Reports: None Neurological Surgical History: Reports: None Musculoskeletal Surgical History: Reports: None Oncologic Surgical History: Reports: None Dermatological Surgical History: Reports: None Social & Family History - Family History Family Medical History: Noncontributory Cardiac: Reports: Hypertension OBGYN: Reports: - Tobacco Use Smoking Status *Q: Never Smoker Second Hand Smoke Exposure: No - Caffeine Use Caffeine Use: Reports: None - Recreational Drug Use Recreational Drug Use: No ED ROS GENERAL - Review of Systems Review Of Systems: See Below (see dictation) ED EXAM, GENERAL - Physical Exam Exam: See Below (see dictation) EKG INTERPRETATION EKG Interpretation Comments: 76 Bpm, NSR, normal QRS interval, no STEMI. EKG and rhythm strip interpreted by me at 0308 Course - Vital Signs Last Recorded V/S: Last Vital Signs Temp 96.2 F L 04/12/20 15:02 Pulse 81 04/12/20 15:17 Resp 13 04/12/20 15:02 BP 95/60 04/12/20 15:17 Pulse Ox 99 04/12/20 15:17 - Orders/Labs/Meds Orders: Active Orders 24 hr Category Date Time Status Admission Status [Patient Status] [ADT] Stat ADT 04/12/20 17:22 Active Bedrest [RC] ASDIRECTED Care 04/12/20 17:23 Active Cardiac Monitoring [RC] . DIRECTED Care 04/12/20 15:03 Active EKG Documentation Completion [RC] STAT Care 04/12/20 15:03 Active Pulse Oximetry [RC] ASDIRECTED Care 04/12/20 15:03 Active Vital Signs [RC] Q4H Care 04/12/20 17:23 Active Adult Diet [DIET] Diet 04/13/20 Breakfast Active HEMATOCRIT [HEME] Stat Lab 04/12/20 20:00 Ordered HEMOGLOBIN [HEME] Stat Lab 04/12/20 20:00 Ordered Sodium Chloride 0.9% [Normal Saline] 1,000 ml Med 04/12/20 17:25 Active IV STAT Sodium Chloride 0.9% [Saline Flush] Med 04/12/20 15:03 Active 10 ml FLUSH ASDIRECTED PRN Sodium Chloride 0.9% [Saline Flush] Med 04/12/20 15:03 Active 2.5 ml FLUSH ASDIRECTED PRN Saline Lock Insert [OM.PC] Stat Oth 04/12/20 15:03 Ordered Medication Orders Sodium Chloride (Normal Saline) 1,000 mls @ 125 mls/hr IV STAT STA Stop: 04/13/20 01:24 Sodium Chloride (Saline Flush) 10 ml FLUSH ASDIRECTED PRN PRN Reason: Keep Vein Open Sodium Chloride (Saline Flush) 2.5 ml FLUSH ASDIRECTED PRN PRN Reason: Keep Vein Open Labs: Laboratory Tests 04/12/20 04/12/20 04/12/20 Range/Units 14:50 14:50 14:50 WBC 9.93 (4.0-11.0) K/uL RBC 3.63 L (4.30-5.90) M/uL Hgb 9.6 L (12.0-16.0) g/dL Hct 30.0 L (36.0-46.0) % MCV 82.6 (80.0-98.0) fL MCH 26.4 L (27.0-32.0) pg MCHC 32.0 (31.0-37.0) g/dL RDW Std Deviation 46.5 (28.0-62.0) fl RDW Coeff of Pete 16 H (11.0-15.0) % Plt Count 283 (150-400) K/uL MPV 10.70 (7.40-12.00) fL Neut % (Auto) 63.1 (48.0-80.0) % Lymph % (Auto) 27.6 (16.0-40.0) % Wells % (Auto) 7.9 (0.0-15.0) % Eos % (Auto) 1.3 (0.0-7.0) % Baso % (Auto) 0.1 (0.0-1.5) % Neut # (Auto) 6.3 H (1.4-5.7) K/uL Lymph # (Auto) 2.7 H (0.6-2.4) K/uL Wells # (Auto) 0.8 (0.0-0.8) K/uL Eos # (Auto) 0.1 (0.0-0.7) K/uL Baso # (Auto) 0.0 (0.0-0.1) K/uL Nucleated RBC % 0.0 /100WBC Nucleated RBCs # 0 K/uL INR 1.00 Sodium 143 (136-145) mmol/L Potassium 3.5 (3.5-5.1) mmol/L Chloride 106 (98-107) mmol/L Carbon Dioxide 30.3 (21.0-32.0) mmol/L BUN 5 L (7.0-18.0) mg/dL Creatinine 0.7 (0.6-1.0) mg/dL Est Cr Clr Drug Dosing TNP Estimated GFR (MDRD) > 60.0 ml/min Glucose 98 (74-106) mg/dL Calcium 8.6 (8.5-10.1) mg/dL Total Bilirubin 0.3 (0.2-1.0) mg/dL AST 21 (15-37) IU/L ALT 21 (14-63) IU/L Alkaline Phosphatase 76 (46-116) U/L Troponin I < 0.050 (0.000-0.056) ng/mL Total Protein 6.7 (6.4-8.2) g/dL Albumin 3.3 L (3.4-5.0) g/dL Globulin 3.4 (2.6-4.0) g/dL Albumin/Globulin Ratio 1.0 (0.9-1.6) Urine Color Urine Appearance Urine pH (5.0-8.0) Ur Specific [place] (1.001-1.035) Urine Protein (NEGATIVE) mg/dL Urine Glucose (UA) (NEGATIVE) mg/dL Urine Ketones (NEGATIVE) mg/dL Urine Occult Blood (NEGATIVE) Urine Nitrite (NEGATIVE) Urine Bilirubin (NEGATIVE) Urine Urobilinogen (<2.0) EU/dL Ur Leukocyte Esterase (NEGATIVE) U Hyaline Cast (Auto) (0-2/LPF) Urine RBC (0-2/HPF) Urine WBC (0-5/HPF) Ur Epithelial Cells (NONE-FEW) Urine Bacteria (NEGATIVE) Urine Mucus (NONE-MOD) Blood Type Antibody Screen 04/12/20 04/12/20 Range/Units 15:00 15:45 WBC (4.0-11.0) K/uL RBC (4.30-5.90) M/uL Hgb (12.0-16.0) g/dL Hct (36.0-46.0) % MCV (80.0-98.0) fL MCH (27.0-32.0) pg MCHC (31.0-37.0) g/dL RDW Std Deviation (28.0-62.0) fl RDW Coeff of Pete (11.0-15.0) % Plt Count (150-400) K/uL MPV (7.40-12.00) fL Neut % (Auto) (48.0-80.0) % Lymph % (Auto) (16.0-40.0) % Wells % (Auto) (0.0-15.0) % Eos % (Auto) (0.0-7.0) % Baso % (Auto) (0.0-1.5) % Neut # (Auto) (1.4-5.7) K/uL Lymph # (Auto) (0.6-2.4) K/uL Wells # (Auto) (0.0-0.8) K/uL Eos # (Auto) (0.0-0.7) K/uL Baso # (Auto) (0.0-0.1) K/uL Nucleated RBC % /100WBC Nucleated RBCs # K/uL INR Sodium (136-145) mmol/L Potassium (3.5-5.1) mmol/L Chloride (98-107) mmol/L Carbon Dioxide (21.0-32.0) mmol/L BUN (7.0-18.0) mg/dL Creatinine (0.6-1.0) mg/dL Est Cr Clr Drug Dosing Estimated GFR (MDRD) ml/min Glucose (74-106) mg/dL Calcium (8.5-10.1) mg/dL Total Bilirubin (0.2-1.0) mg/dL AST (15-37) IU/L ALT (14-63) IU/L Alkaline Phosphatase (46-116) U/L Troponin I (0.000-0.056) ng/mL Total Protein (6.4-8.2) g/dL Albumin (3.4-5.0) g/dL Globulin (2.6-4.0) g/dL Albumin/Globulin Ratio (0.9-1.6) Urine Color YELLOW Urine Appearance CLEAR Urine pH 8.5 H (5.0-8.0) Ur Specific [place] 1.015 (1.001-1.035) Urine Protein NEGATIVE (NEGATIVE) mg/dL Urine Glucose (UA) NEGATIVE (NEGATIVE) mg/dL Urine Ketones NEGATIVE (NEGATIVE) mg/dL Urine Occult Blood NEGATIVE (NEGATIVE) Urine Nitrite NEGATIVE (NEGATIVE) Urine Bilirubin NEGATIVE (NEGATIVE) Urine Urobilinogen 0.2 (<2.0) EU/dL Ur Leukocyte Esterase TRACE H (NEGATIVE) U Hyaline Cast (Auto) 0-2 (0-2/LPF) Urine RBC 0-2 (0-2/HPF) Urine WBC 3-10 (0-5/HPF) Ur Epithelial Cells OCCASIONAL (NONE-FEW) Urine Bacteria 1+ H (NEGATIVE) Urine Mucus MODERATE (NONE-MOD) Blood Type A POSITIVE Antibody Screen NEGATIVE Meds: Medications Generic Name Dose Route Start Last Admin Trade Name Freq PRN Reason Stop Dose Admin Sodium Chloride 1,000 mls @ 125 mls/hr 04/12/20 17:25 Normal Saline IV 04/13/20 01:24 STAT STA Sodium Chloride 10 ml 04/12/20 15:03 Saline Flush FLUSH ASDIRECTED PRN Keep Vein Open Sodium Chloride 2.5 ml 04/12/20 15:03 Saline Flush FLUSH ASDIRECTED PRN Keep Vein Open Discontinued Medications Generic Name Dose Route Start Last Admin Trade Name Rowan PRN Reason Stop Dose Admin Sodium Chloride 1,000 mls @ 999 mls/hr 04/12/20 15:03 04/12/20 15:05 Normal Saline IV 04/12/20 16:03 999 mls/hr BOLUS ONE Administration Morphine Sulfate 4 mg 04/12/20 17:25 Morphine IVPUSH 04/12/20 17:26 ONETIME ONE Ondansetron HCl 4 mg 04/12/20 16:58 04/12/20 16:59 Zofran IVPUSH 04/12/20 16:59 4 mg ONETIME ONE Administration - Re-Assessments/Exams Free Text/Narrative Re-Assessment/Exam: 04/12/20 17:[address] Escalona, will come assess the patient in the ER right now. 04/12/20 17:14 Dr. Escalona and ER seeing the patient now. 04/12/20 17:28 Dr. Escalona remove the products of conception localized at the office with ring forceps with 4 x 4's. He will admit the patient for observation. Departure - Departure Time of Disposition: 17:28 Disposition: Refer to Observation Condition: Good Clinical Impression: Miscarriage Syncope Qualifiers: Syncope type: unspecified Qualified Code(s): R55 - Syncope and collapse - Discharge Information Referrals: Keo Escalona MD [Primary Care Provider] - Forms: ED Department Discharge Sepsis Event Note (ED) - Evaluation Sepsis Screening Result: No Definite Risk - Focused Exam Vital Signs: Vital Signs Temp Pulse Resp BP Pulse Ox 04/12/20 15:17 81 95/60 99 04/12/20 15:02 96.2 F L 54 L 13 104/65 100 - My Orders Last 24 Hours: My Active Orders 04/12/20 15:03 Cardiac Monitoring [RC] . DIRECTED EKG Documentation Completion [RC] STAT Pulse Oximetry [RC] ASDIRECTED Sodium Chloride 0.9% [Saline Flush] 10 ml FLUSH ASDIRECTED PRN Sodium Chloride 0.9% [Saline Flush] 2.5 ml FLUSH ASDIRECTED PRN Saline Lock Insert [OM.PC] Stat 04/12/20 17:22 Admission Status [Patient Status] [ADT] Stat - Assessment/Plan Last 24 Hours: My Active Orders 04/12/20 15:03 Cardiac Monitoring [RC] . DIRECTED EKG Documentation Completion [RC] STAT Pulse Oximetry [RC] ASDIRECTED Sodium Chloride 0.9% [Saline Flush] 10 ml FLUSH ASDIRECTED PRN Sodium Chloride 0.9% [Saline Flush] 2.5 ml FLUSH ASDIRECTED PRN Saline Lock Insert [OM.PC] Stat 04/12/20 17:22 Admission Status [Patient Status] [ADT] Stat
[2020-04-12] MEDS ORDERED: Ondansetron 4 MG/2 ML SDV IVPUSH ONE (16:58)
[2020-04-12] MEDS ORDERED: Morphine 4 MG/ML Syringe IVPUSH ONE (17:25)
[2020-04-12] MEDS ORDERED: Sodium Chloride 0.9% 1,000 ML IV STA (17:25)
--- NOTE | 2020-04-13 10:25 | PCM.PREANE ---
Preanesthetic Assessment - Anesthesia/Transfusion/Family Hx Anesthesia History: Prior Anesthesia Without Reaction Family History of Anesthesia Reaction: No Transfusion History: Prior Transfusion Without Reaction - Review of Systems General: No Symptoms Pulmonary: No Symptoms Cardiovascular: No Symptoms Gastrointestinal: No Symptoms Neurological: No Symptoms Other: Reports: None - Physical Assessment NPO Status Date: 04/13/20 ([facility] at 7-8 am) Vital Signs: Last Vital Signs Temp 98.7 F 04/13/20 04:48 Pulse 80 04/13/20 04:48 Resp 18 04/13/20 04:48 BP 110/56 L 04/13/20 04:48 Pulse Ox 99 04/13/20 01:11 Height: 5 ft 4 in Weight: 78.245 kg ASA Class: 2 Mental Status: Alert & Oriented x3 Airway Class: Mallampati = 1 Dentition: Reports: Normal Dentition ROM/Head Extension: Full Lungs: Clear to Auscultation, Normal Respiratory Effort Cardiovascular: Regular Rate, Regular Rhythm - Lab Values: Laboratory Last Values WBC 9.93 K/uL (4.0-11.0) 04/12/20 14:50 RBC 3.63 M/uL (4.30-5.90) L 04/12/20 14:50 Hgb 8.2 g/dL (12.0-16.0) L 04/13/20 05:55 Hct 26.0 % (36.0-46.0) L 04/13/20 05:55 MCV 82.6 fL (80.0-98.0) 04/12/20 14:50 MCH 26.4 pg (27.0-32.0) L 04/12/20 14:50 MCHC 32.0 g/dL (31.0-37.0) 04/12/20 14:50 RDW Std Deviation 46.5 fl (28.0-62.0) 04/12/20 14:50 RDW Coeff of Pete 16 % (11.0-15.0) H 04/12/20 14:50 Plt Count 283 K/uL (150-400) 04/12/20 14:50 MPV 10.70 fL (7.40-12.00) 04/12/20 14:50 Neut % (Auto) 63.1 % (48.0-80.0) 04/12/20 14:50 Lymph % (Auto) 27.6 % (16.0-40.0) 04/12/20 14:50 [place] % (Auto) 7.9 % (0.0-15.0) 04/12/20 14:50 Eos % (Auto) 1.3 % (0.0-7.0) 04/12/20 14:50 Baso % (Auto) 0.1 % (0.0-1.5) 04/12/20 14:50 Neut # (Auto) 6.3 K/uL (1.4-5.7) H 04/12/20 14:50 Lymph # (Auto) 2.7 K/uL (0.6-2.4) H 04/12/20 14:50 [place]ley # (Auto) 0.8 K/uL (0.0-0.8) 04/12/20 14:50 Eos # (Auto) 0.1 K/uL (0.0-0.7) 04/12/20 14:50 Baso # (Auto) 0.0 K/uL (0.0-0.1) 04/12/20 14:50 Nucleated RBC % 0.0 /100WBC 04/12/20 14:50 Nucleated RBCs # 0 K/uL 04/12/20 14:50 INR 1.00 04/12/20 14:50 Sodium 143 mmol/L (136-145) 04/12/20 14:50 Potassium 3.5 mmol/L (3.5-5.1) 04/12/20 14:50 Chloride 106 mmol/L (98-107) 04/12/20 14:50 Carbon Dioxide 30.3 mmol/L (21.0-32.0) 04/12/20 14:50 BUN 5 mg/dL (7.0-18.0) L 04/12/20 14:50 Creatinine 0.7 mg/dL (0.6-1.0) 04/12/20 14:50 Est Cr Clr Drug Dosing TNP 04/12/20 14:50 Estimated GFR (MDRD) > 60.0 ml/min 04/12/20 14:50 Glucose 98 mg/dL (74-106) 04/12/20 14:50 Calcium 8.6 mg/dL (8.5-10.1) 04/12/20 14:50 Total Bilirubin 0.3 mg/dL (0.2-1.0) 04/12/20 14:50 AST 21 IU/L (15-37) 04/12/20 14:50 ALT 21 IU/L (14-63) 04/12/20 14:50 Alkaline Phosphatase 76 U/L (46-116) 04/12/20 14:50 Troponin I < 0.050 ng/mL (0.000-0.056) 04/12/20 14:50 Total Protein 6.7 g/dL (6.4-8.2) 04/12/20 14:50 Albumin 3.3 g/dL (3.4-5.0) L 04/12/20 14:50 Globulin 3.4 g/dL (2.6-4.0) 04/12/20 14:50 Albumin/Globulin Ratio 1.0 (0.9-1.6) 04/12/20 14:50 Urine Color YELLOW 04/12/20 15:45 Urine Appearance CLEAR 04/12/20 15:45 Urine pH 8.5 (5.0-8.0) H 04/12/20 15:45 Ur Specific [place] 1.015 (1.001-1.035) 04/12/20 15:45 Urine Protein NEGATIVE mg/dL (NEGATIVE) 04/12/20 15:45 Urine Glucose (UA) NEGATIVE mg/dL (NEGATIVE) 04/12/20 15:45 Urine Ketones NEGATIVE mg/dL (NEGATIVE) 04/12/20 15:45 Urine Occult Blood NEGATIVE (NEGATIVE) 04/12/20 15:45 Urine Nitrite NEGATIVE (NEGATIVE) 04/12/20 15:45 Urine Bilirubin NEGATIVE (NEGATIVE) 04/12/20 15:45 Urine Urobilinogen 0.2 EU/dL (<2.0) 04/12/20 15:45 Ur Leukocyte Esterase TRACE (NEGATIVE) H 04/12/20 15:45 U Hyaline Cast (Auto) 0-2 (0-2/LPF) 04/12/20 15:45 Urine RBC 0-2 (0-2/HPF) 04/12/20 15:45 Urine WBC 3-10 (0-5/HPF) 04/12/20 15:45 Ur Epithelial Cells OCCASIONAL (NONE-FEW) 04/12/20 15:45 Urine Bacteria 1+ (NEGATIVE) H 04/12/20 15:45 Urine Mucus MODERATE (NONE-MOD) 04/12/20 15:45 Blood Type A POSITIVE 04/12/20 15:00 Antibody Screen NEGATIVE 04/12/20 15:00 Crossmatch See Detail 04/12/20 15:00 - Allergies Allergies/Adverse Reactions: Allergies Allergy/AdvReac Type Severity Reaction Status Date / Time No Known Allergies Allergy Verified 04/12/20 18:26 - Blood Blood Available: No - Anesthesia Plan Pre-Op Medication Ordered: None - Acknowledgements Anesthesia Type Planned: General Anesthesia Pt an Appropriate Candidate for the Planned Anesthesia: Yes Alternatives and Risks of Anesthesia Discussed w Pt/Guardian: Yes Pt/Guardian Understands and Agrees with Anesthesia Plan: Yes PreAnesthesia Questionnaire - Past Health History Medical/Surgical History: Denies Medical/Surgical History HEENT History: Reports: None Cardiovascular History: Reports: None Respiratory History: Reports: None Gastrointestinal History: Reports: None Genitourinary History: Reports: None 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 . Per pt had problems with 2nd in [place], was given meds to keep and went full term. Musculoskeletal History: Reports: None Neurological History: Reports: None Psychiatric History: Reports: None Endocrine/Metabolic History: Reports: None Hematologic History: Reports: None Immunologic History: Reports: None Oncologic (Cancer) History: Reports: None Dermatologic History: Reports: None - Infectious Disease History Infectious Disease History: Reports: None - Past Surgical History Head Surgeries/Procedures: Reports: None HEENT Surgical History: Reports: None Cardiovascular Surgical History: Reports: None Respiratory Surgical History: Reports: None GI Surgical History: Reports: None Female Surgical History: Reports: None Endocrine Surgical History: Reports: None Neurological Surgical History: Reports: None Musculoskeletal Surgical History: Reports: None Oncologic Surgical History: Reports: None Dermatological Surgical History: Reports: None - SUBSTANCE USE Smoking Status *Q: Never Smoker Tobacco Use Within Last Twelve Months: No Second Hand Smoke Exposure: No Recreational Drug Use History: No - HOME MEDS Home Medications: Home Meds . [No Known Home Meds] 09/12/18 [History] - CURRENT (IN HOUSE) MEDS Current Meds: Current Medications Sodium Chloride (Saline Flush) 10 ml FLUSH ASDIRECTED PRN PRN Reason: Keep Vein Open Sodium Chloride (Saline Flush) 2.5 ml FLUSH ASDIRECTED PRN PRN Reason: Keep Vein Open Discontinued Medications Sodium Chloride (Normal Saline) 1,000 mls @ 999 mls/hr IV BOLUS ONE Stop: 04/12/20 16:03 Last Admin: 04/12/20 15:05 Dose: 999 mls/hr Sodium Chloride (Normal Saline) 1,000 mls @ 125 mls/hr IV STAT STA Stop: 04/13/20 01:24 Last Admin: 04/12/20 17:44 Dose: 125 mls/hr Lactated Ringer's (Ringers, Lactated) 1,000 mls @ 999 mls/hr IV .BOLUS ONE Stop: 04/12/20 17:00 Last Admin: 04/12/20 16:00 Dose: 999 mls/hr Morphine Sulfate (Morphine) 4 mg IVPUSH ONETIME ONE Stop: 04/12/20 17:26 Last Admin: 04/12/20 17:44 Dose: 4 mg Ondansetron HCl (Zofran) 4 mg IVPUSH ONETIME ONE Stop: 04/12/20 16:59 Last Admin: 04/12/20 16:59 Dose: 4 mg
[2020-04-13] MEDS ORDERED: Propofol 200 MG/20 ML SDV ONE (10:54)
[2020-04-13] MEDS ORDERED: Midazolam 1 MG/ML 2 ML SDV ONE (10:54)
[2020-04-13] MEDS ORDERED: fentaNYL 100 MCG/2 ML SDV ONE (10:54)
[2020-04-13] MEDS ORDERED: Ketorolac 30 MG/ML SDV ONE (10:56)
[2020-04-13] MEDS ORDERED: Glycopyrrolate 0.2 MG/ML SDV ONE (10:56)
[2020-04-13] MEDS ORDERED: Lidocaine 2% 5 ML SDV ONE (10:56)
[2020-04-13] MEDS ORDERED: Ondansetron 4 MG/2 ML SDV ONE (10:56)
--- NOTE | 2020-04-13 11:33 | US ---
Pelvic ultrasound: Multiple real-time images were obtained transvaginally. Comparison: Prior pelvic ultrasound study of 04/09/20. Endometrium is thickened with soft tissue material. Endometrial thickness is 1.9 cm. There is some vascular flow within this material and findings are compatible with retained products of conception. When allowing for differences in technique, findings are felt to be slightly improved from previous exam. Ovaries are within normal limits. No free fluid is seen. Measurements: Uterus: Length 8.0 cm, AP height 4.2 cm,transverse width 4.6 cm Right ovary: 2.2 x 1.8 x 1.1 cm Left ovary: 2.8 x 2.2 x 1.1 cm Impression: 1. Soft tissue material causing distention of the endometrial cavity. Doppler blood flow seen within this tissue and findings are felt compatible with retained products of conception. Findings felt to be minimally improved from prior exam. 2. No ovarian abnormalities are seen. Diagnostic code #3 This report was dictated in MDT
--- NOTE | 2020-04-13 11:33 | PCM.OPNOTE ---
- General Post-Op/Procedure Note Date of Surgery/Procedure: 04/13/20 Operative Procedure(s): D&E Pre Op Diagnosis: incomp. Post-Op Diagnosis: Same Anesthesia Technique: General LMA Primary Surgeon: Keo Escalona EBL in mLs: 50 Complications: None Condition: Stable Free Text/Narrative:: Intake & Output 04/12/20 04/13/20 04/13/20 22:59 06:59 14:59 Intake Total 518 1338 Output Total 1450 Balance 518 -112
--- NOTE | 2020-04-13 11:34 | PCM.DCSUM1 ---
Discharge Summary - Hospital Course Diagnosis: Stroke: No - Discharge Data Discharge Date: 04/13/20 Discharge Disposition: Home, Self-Care 01 Condition: Stable - Referral to Home Health Primary Care Physician: PCP None - Patient Summary/Data Operative Procedure(s) Performed: D&E - Patient Instructions Diet: Usual Diet as Tolerated Activity: As Tolerated Driving: Do Not Drive Showering/Bathing: May Shower - Discharge Plan Home Medications: Home Meds . [No Known Home Meds] 09/12/18 [History] Referrals: Keo Escalona MD [Physician] - 04/18/20 9:30 am - Discharge Summary/Plan Comment DC Time >30 min.: Yes - General Info Date of Service: 04/13/20 Functional Status: Reports: Pain Controlled - Review of Systems General: Reports: No Symptoms HEENT: Reports: No Symptoms Pulmonary: Reports: No Symptoms Cardiovascular: Reports: No Symptoms Gastrointestinal: Reports: No Symptoms Genitourinary: Reports: No Symptoms Musculoskeletal: Reports: No Symptoms Skin: Reports: No Symptoms Neurological: Reports: No Symptoms Psychiatric: Reports: No Symptoms - Patient Data Vitals - Most Recent: Last Vital Signs Temp 37.1 C 04/13/20 04:48 Pulse 80 04/13/20 04:48 Resp 18 04/13/20 04:48 BP 110/56 L 04/13/20 04:48 Pulse Ox 99 04/13/20 01:11 Weight - Most Recent: 78.245 kg I&O - Last 24 hours: Intake & Output 04/12/20 04/13/20 04/13/20 22:59 06:59 14:59 Intake Total 518 1338 Output Total 1450 Balance 518 -112 Lab Results - Last 24 hrs: Laboratory Results - last 24 hr 04/12/20 04/12/20 04/12/20 Range/Units 14:50 14:50 14:50 WBC 9.93 (4.0-11.0) K/uL RBC 3.63 L (4.30-5.90) M/uL Hgb 9.6 L (12.0-16.0) g/dL Hct 30.0 L (36.0-46.0) % MCV 82.6 (80.0-98.0) fL MCH 26.4 L (27.0-32.0) pg MCHC 32.0 (31.0-37.0) g/dL RDW Std Deviation 46.5 (28.0-62.0) fl RDW Coeff of Pete 16 H (11.0-15.0) % Plt Count 283 (150-400) K/uL MPV 10.70 (7.40-12.00) fL Neut % (Auto) 63.1 (48.0-80.0) % Lymph % (Auto) 27.6 (16.0-40.0) % [place] % (Auto) 7.9 (0.0-15.0) % Eos % (Auto) 1.3 (0.0-7.0) % Baso % (Auto) 0.1 (0.0-1.5) % Neut # (Auto) 6.3 H (1.4-5.7) K/uL Lymph # (Auto) 2.7 H (0.6-2.4) K/uL [place] # (Auto) 0.8 (0.0-0.8) K/uL Eos # (Auto) 0.1 (0.0-0.7) K/uL Baso # (Auto) 0.0 (0.0-0.1) K/uL Nucleated RBC % 0.0 /100WBC Nucleated RBCs # 0 K/uL INR 1.00 Sodium 143 (136-145) mmol/L Potassium 3.5 (3.5-5.1) mmol/L Chloride 106 (98-107) mmol/L Carbon Dioxide 30.3 (21.0-32.0) mmol/L BUN 5 L (7.0-18.0) mg/dL Creatinine 0.7 (0.6-1.0) mg/dL Est Cr Clr Drug Dosing TNP Estimated GFR (MDRD) > 60.0 ml/min Glucose 98 (74-106) mg/dL Calcium 8.6 (8.5-10.1) mg/dL Total Bilirubin 0.3 (0.2-1.0) mg/dL AST 21 (15-37) IU/L ALT 21 (14-63) IU/L Alkaline Phosphatase 76 (46-116) U/L Troponin I < 0.050 (0.000-0.056) ng/mL Total Protein 6.7 (6.4-8.2) g/dL Albumin 3.3 L (3.4-5.0) g/dL Globulin 3.4 (2.6-4.0) g/dL Albumin/Globulin Ratio 1.0 (0.9-1.6) Urine Color Urine Appearance Urine pH (5.0-8.0) Ur Specific [place] (1.001-1.035) Urine Protein (NEGATIVE) mg/dL Urine Glucose (UA) (NEGATIVE) mg/dL Urine Ketones (NEGATIVE) mg/dL Urine Occult Blood (NEGATIVE) Urine Nitrite (NEGATIVE) Urine Bilirubin (NEGATIVE) Urine Urobilinogen (<2.0) EU/dL Ur Leukocyte Esterase (NEGATIVE) U Hyaline Cast (Auto) (0-2/LPF) Urine RBC (0-2/HPF) Urine WBC (0-5/HPF) Ur Epithelial Cells (NONE-FEW) Urine Bacteria (NEGATIVE) Urine Mucus (NONE-MOD) SARS-CoV-2 RNA (RT-PCR) (NEGATIVE) Blood Type Antibody Screen Crossmatch 04/12/20 04/12/20 04/12/20 Range/Units 15:00 15:45 19:59 WBC (4.0-11.0) K/uL RBC (4.30-5.90) M/uL Hgb 6.7 L (12.0-16.0) g/dL Hct 20.8 L (36.0-46.0) % MCV (80.0-98.0) fL MCH (27.0-32.0) pg MCHC (31.0-37.0) g/dL RDW Std Deviation (28.0-62.0) fl RDW Coeff of Pete (11.0-15.0) % Plt Count (150-400) K/uL MPV (7.40-12.00) fL Neut % (Auto) (48.0-80.0) % Lymph % (Auto) (16.0-40.0) % [place] % (Auto) (0.0-15.0) % Eos % (Auto) (0.0-7.0) % Baso % (Auto) (0.0-1.5) % Neut # (Auto) (1.4-5.7) K/uL Lymph # (Auto) (0.6-2.4) K/uL [place] # (Auto) (0.0-0.8) K/uL Eos # (Auto) (0.0-0.7) K/uL Baso # (Auto) (0.0-0.1) K/uL Nucleated RBC % /100WBC Nucleated RBCs # K/uL INR Sodium (136-145) mmol/L Potassium (3.5-5.1) mmol/L Chloride (98-107) mmol/L Carbon Dioxide (21.0-32.0) mmol/L BUN (7.0-18.0) mg/dL Creatinine (0.6-1.0) mg/dL Est Cr Clr Drug Dosing Estimated GFR (MDRD) ml/min Glucose (74-106) mg/dL Calcium (8.5-10.1) mg/dL Total Bilirubin (0.2-1.0) mg/dL AST (15-37) IU/L ALT (14-63) IU/L Alkaline Phosphatase (46-116) U/L Troponin I (0.000-0.056) ng/mL Total Protein (6.4-8.2) g/dL Albumin (3.4-5.0) g/dL Globulin (2.6-4.0) g/dL Albumin/Globulin Ratio (0.9-1.6) Urine Color YELLOW Urine Appearance CLEAR Urine pH 8.5 H (5.0-8.0) Ur Specific [place] 1.015 (1.001-1.035) Urine Protein NEGATIVE (NEGATIVE) mg/dL Urine Glucose (UA) NEGATIVE (NEGATIVE) mg/dL Urine Ketones NEGATIVE (NEGATIVE) mg/dL Urine Occult Blood NEGATIVE (NEGATIVE) Urine Nitrite NEGATIVE (NEGATIVE) Urine Bilirubin NEGATIVE (NEGATIVE) Urine Urobilinogen 0.2 (<2.0) EU/dL Ur Leukocyte Esterase TRACE H (NEGATIVE) U Hyaline Cast (Auto) 0-2 (0-2/LPF) Urine RBC 0-2 (0-2/HPF) Urine WBC 3-10 (0-5/HPF) Ur Epithelial Cells OCCASIONAL (NONE-FEW) Urine Bacteria 1+ H (NEGATIVE) Urine Mucus MODERATE (NONE-MOD) SARS-CoV-2 RNA (RT-PCR) (NEGATIVE) Blood Type A POSITIVE Antibody Screen NEGATIVE Crossmatch See Detail 06/12/20 06/12/20 Range/Units 05:55 10:33 WBC (4.0-11.0) K/uL RBC (4.30-5.90) M/uL Hgb 8.2 L (12.0-16.0) g/dL Hct 26.0 L (36.0-46.0) % MCV (80.0-98.0) fL MCH (27.0-32.0) pg MCHC (31.0-37.0) g/dL RDW Std Deviation (28.0-62.0) fl RDW Coeff of Pete (11.0-15.0) % Plt Count (150-400) K/uL MPV (7.40-12.00) fL Neut % (Auto) (48.0-80.0) % Lymph % (Auto) (16.0-40.0) % [place] % (Auto) (0.0-15.0) % Eos % (Auto) (0.0-7.0) % Baso % (Auto) (0.0-1.5) % Neut # (Auto) (1.4-5.7) K/uL Lymph # (Auto) (0.6-2.4) K/uL [place] # (Auto) (0.0-0.8) K/uL Eos # (Auto) (0.0-0.7) K/uL Baso # (Auto) (0.0-0.1) K/uL Nucleated RBC % /100WBC Nucleated RBCs # K/uL INR Sodium (136-145) mmol/L Potassium (3.5-5.1) mmol/L Chloride (98-107) mmol/L Carbon Dioxide (21.0-32.0) mmol/L BUN (7.0-18.0) mg/dL Creatinine (0.6-1.0) mg/dL Est Cr Clr Drug Dosing Estimated GFR (MDRD) ml/min Glucose (74-106) mg/dL Calcium (8.5-10.1) mg/dL Total Bilirubin (0.2-1.0) mg/dL AST (15-37) IU/L ALT (14-63) IU/L Alkaline Phosphatase (46-116) U/L Troponin I (0.000-0.056) ng/mL Total Protein (6.4-8.2) g/dL Albumin (3.4-5.0) g/dL Globulin (2.6-4.0) g/dL Albumin/Globulin Ratio (0.9-1.6) Urine Color Urine Appearance Urine pH (5.0-8.0) Ur Specific [place] (1.001-1.035) Urine Protein (NEGATIVE) mg/dL Urine Glucose (UA) (NEGATIVE) mg/dL Urine Ketones (NEGATIVE) mg/dL Urine Occult Blood (NEGATIVE) Urine Nitrite (NEGATIVE) Urine Bilirubin (NEGATIVE) Urine Urobilinogen (<2.0) EU/dL Ur Leukocyte Esterase (NEGATIVE) U Hyaline Cast (Auto) (0-2/LPF) Urine RBC (0-2/HPF) Urine WBC (0-5/HPF) Ur Epithelial Cells (NONE-FEW) Urine Bacteria (NEGATIVE) Urine Mucus (NONE-MOD) SARS-CoV-2 RNA (RT-PCR) NEGATIVE (NEGATIVE) Blood Type Antibody Screen Crossmatch Med Orders - Current: Current Medications Sodium Chloride (Saline Flush) 10 ml FLUSH ASDIRECTED PRN PRN Reason: Keep Vein Open Sodium Chloride (Saline Flush) 2.5 ml FLUSH ASDIRECTED PRN PRN Reason: Keep Vein Open Discontinued Medications Fentanyl (Sublimaze) Confirm Administered Dose 100 mcg .ROUTE .STK-MED ONE Stop: 04/13/20 10:55 Glycopyrrolate (Robinul) Confirm Administered Dose 0.2 mg .ROUTE .STK-MED ONE Stop: 04/13/20 10:57 Sodium Chloride (Normal Saline) 1,000 mls @ 999 mls/hr IV BOLUS ONE Stop: 04/12/20 16:03 Last Admin: 04/12/20 15:05 Dose: 999 mls/hr Sodium Chloride (Normal Saline) 1,000 mls @ 125 mls/hr IV STAT STA Stop: 04/13/20 01:24 Last Admin: 04/12/20 17:44 Dose: 125 mls/hr Lactated Ringer's (Ringers, Lactated) 1,000 mls @ 999 mls/hr IV .BOLUS ONE Stop: 04/12/20 17:00 Last Admin: 04/12/20 16:00 Dose: 999 mls/hr Ketorolac Tromethamine (Toradol) Confirm Administered Dose 30 mg .ROUTE .STK- MED ONE Stop: 04/13/20 10:57 Lidocaine (Xylocaine-Mpf 2%) Confirm Administered Dose 5 ml .ROUTE .STK-MED ONE Stop: 04/13/20 10:57 Midazolam HCl (Versed 1 Mg/Ml) Confirm Administered Dose 2 mg .ROUTE .STK-MED ONE Stop: 04/13/20 10:55 Morphine Sulfate (Morphine) 4 mg IVPUSH ONETIME ONE Stop: 04/12/20 17:26 Last Admin: 04/12/20 17:44 Dose: 4 mg Ondansetron HCl (Zofran) 4 mg IVPUSH ONETIME ONE Stop: 04/12/20 16:59 Last Admin: 04/12/20 16:59 Dose: 4 mg Ondansetron HCl (Zofran) Confirm Administered Dose 4 mg .ROUTE .STK-MED ONE Stop: 04/13/20 10:57 Propofol (Diprivan 20 Ml) Confirm Administered Dose 200 mg .ROUTE .STK-MED ONE Stop: 04/13/20 10:55 - Exam General: Reports: Alert, Oriented HEENT: Reports: Pupils Equal, Pupils Reactive, EOMI, Mucous Membr. Moist/[place] Neck: Reports: Supple Lungs: Reports: Clear to Auscultation, Normal Respiratory Effort Cardiovascular: Reports: Regular Rate, Regular Rhythm GI/Abdominal Exam: Normal Bowel Sounds, Soft, Non-Tender, No Organomegaly, No Distention, No Abnormal Bruit, No Mass, Pelvis Stable (Female) Exam: Normal External Exam, Normal Speculum Exam, Normal Bimanual Exam Rectal (Female) Exam: Normal Exam, Normal Rectal Tone Back Exam: Reports: Normal Inspection, Full Range of Motion Extremities: Normal Inspection, Normal Range of Motion, Non-Tender, No Pedal Edema, Normal Capillary Refill Skin: Reports: Warm, Dry, Intact Wound/Incisions: Reports: Healing Well Neurological: Reports: No New Focal Deficit Psy/Mental Status: Reports: Alert, Normal Affect, Normal Mood
--- NOTE | 2020-04-13 12:14 | PCM.POSTAN ---
POST ANESTHESIA ASSESSMENT - MENTAL STATUS Mental Status: Alert, Oriented - VITAL SIGNS Vital Signs: Last Vital Signs Temp 99.1 F 04/13/20 11:34 Pulse 72 04/13/20 11:59 Resp 16 04/13/20 11:59 BP 103/61 04/13/20 11:59 Pulse Ox 99 04/13/20 11:59 - RESPIRATORY Respiratory Status: Respiratory Rate WNL, Airway Patent, O2 Saturation Stable - CARDIOVASCULAR CV Status: Pulse Rate WNL, Blood Pressure Stable - GASTROINTESTINAL GI Status: No Symptoms - POST OP HYDRATION Hydration Status: Adequate & Stable
--- NOTE | 2020-04-15 12:10 | OR ---
SURGEON: Keo Escalona MD DATE OF PROCEDURE: 04/13/2020 PREOPERATIVE DIAGNOSIS: Incomplete . POSTOPERATIVE DIAGNOSIS: Incomplete . OPERATION PERFORMED: Dilatation and evacuation. PRIMARY SURGEON: Keo Escalona MD. WEALTH MANAGEMENT CONSULTANT: None. ANESTHESIA: Mr. Avinash Quach and Dr. Dsouza, general LMA. INDICATIONS: This patient is 25-year-old. She is admitted through the emergency room yesterday for vaginal bleeding through incomplete . Some of the products of conception were removed it in the emergency room. However, today an ultrasound shows still some retained products of conception, so a decision was made to do a dilatation and evacuation. PROCEDURE IN DETAIL: The patient was brought to the OR, properly identified. After taking time-out and re-identifying the patient, the patient was prepped and draped in sterile fashion as usual. Weighted speculum was placed in vagina. Straight catheter was used to empty the bladder, and a single-tooth tenaculum applied to the cervix, and then, the cervix was already dilated to accommodate #8 cannula and the cannula was placed in endometrial cavity and the endometrial cavity was suctioned, evacuated completely from all products of conception. Once that accomplished, the suction was stopped and the cannula was removed and the procedure was ended. Instrument and sponge count was correct. The patient tolerated the procedure well, went to recovery room in stable general condition. RONAN / EVERARDO /[id number]
== END 2020-04-13 17:20 | disposition home or self-care (01) ==
LOC: MW.ED 14:52 → MW.MS 17:22
PROVIDERS: ADMIT Obstetrics & Gynecology; ATTEND Obstetrics & Gynecology
DX: O03.4 Incomplete spontaneous abortion without complication (principal); Z11.59 Encounter for screening for other viral diseases; Z20.828 Contact with and (suspected) exposure to other viral communicable diseases
CPT/HCPCS: 36415; 36430; 59812; 71045; 76856; 80053; 81001; 84484; 85014; 85018; 85025; 85610; 86850; 86900; 86901; 86920; 86921; 86922; 88305; 93005; 96361; 96374; 96375; 99285; G0378; J1885; J2001; J2250; J2270; J2405; J2704; J3010; J3490; J7030; J7120; P9016; U0002; 01965; 99283

== ENCOUNTER 2020-11-30 13:54 | Observation (INO) | payer SELFPAY ==
[2020-11-30] MEDS ORDERED: Sodium Chloride 0.9% 2.5 ML Syringe FLUSH PRN (14:20)
[2020-11-30] MEDS ORDERED: Ondansetron 4 MG/2 ML SDV IVPUSH PRN (14:20)
[2020-11-30] MEDS ORDERED: Methylergonovine 0.2 MG/1 ML Amp IM PRN (14:20)
[2020-11-30] MEDS ORDERED: Carboprost Tromethamine 250 MCG/1 ML Amp IM PRN (14:20)
[2020-11-30] MEDS ORDERED: Acetaminophen/oxyCODONE 325-5 MG Tab PO PRN (14:20)
[2020-11-30] MEDS ORDERED: Water For Irrigation,Sterile 1,000 ML Container IRR PRN (14:20)
[2020-11-30] MEDS ORDERED: Tranexamic Acid 1,000 MG in Sodium Chloride 0.9% 100 ML IV PRN (14:20)
[2020-11-30] MEDS ORDERED: Misoprostol 200 MCG Tab PO PRN (14:20)
[2020-11-30] MEDS ORDERED: Lidocaine 1% 50 ML MDV INJECT PRN (14:20)
[2020-11-30] MEDS ORDERED: Sodium Chloride 0.9% 10 ML SDV IV PRN (14:20)
[2020-11-30] MEDS ORDERED: Sodium Chloride 0.9% 10 ML Syringe FLUSH PRN (14:20)
[2020-11-30] MEDS ORDERED: LORazepam 1 MG Tab PO PRN (14:25)
[2020-11-30] MEDS ORDERED: Oxytocin/0.9 % Sodium Chloride 30 UNIT/500 ML BAG IV SCH (14:30)
[2020-11-30] MEDS ORDERED: Lactated Ringers 1,000 ML IV SCH (14:30)
[2020-11-30] MEDS: Misoprostol 100 MCG Tab PO PRN ×2 (16:20→22:30)
--- NOTE | 2020-11-30 17:39 | PCM.LDHP ---
L&D History of Present Illness - General Date of Service: 11/30/20 Admit Problem/Dx: Patient Status Order with Admit Dx/Problem 11/30/20 14:20 Patient Status [ADT] Routine Admission Diagnosis/Problem Admission Diagnosis/Problem 11/30/20 17:33 Magda is a 25 yo 013 at 20+0 weeks gestation (JAKE(LMP) 04/19/2021) that presents to L&D today for IOL following spontaneous demise without onset of labor (missed SAB) between 18-20 weeks gestation. 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 Patient seen in office 09/21/2020 for I[address] visit with Dr. Escalona and has not had follow-up since. Patient presented to ED 11/29/2020 with subsequent demise diagnosis via US confirmed with doppler color flow. Denies fever, chills, sweating, SOB, pain, irina vaginal bleeding, LOF, contractions at this time. A pos, Ab screen neg, RI, GBS unknown. Pertinent medical history includes: thyroid abnormalities in prior , SVDx3, SABx1. NKDA. Medications: PNV. Patient has no other complaints or concerns at this time. 11/30/20 17:38 Source of Information: Patient, Family History Limitations: Reports: No Limitations - History of Present Illness Improves with: Reports: None Worsens with: Reports: None Associated Symptoms: Reports: N - Related Data Allergies/Adverse Reactions: Allergies Allergy/AdvReac Type Severity Reaction Status Date / Time No Known Allergies Allergy Verified 04/12/20 18:26 Home Medications: Home Meds Iron 1 tab PO DAILY 11/29/20 [History] Pnv No.95/Ferrous Fum/Folic AC [ Vitamin Tablet] 1 tab PO DAILY 11/29/20 [History] Past Medical History - Past Health History Medical/Surgical History: Denies Medical/Surgical History HEENT History: Reports: None Cardiovascular History: Reports: None Respiratory History: Reports: None Gastrointestinal History: Reports: None Genitourinary History: Reports: None 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: , Spontaneous : 5 Para: 3 LMP (Approximate): > 3 Months Musculoskeletal History: Reports: None Neurological History: Reports: None Psychiatric History: Reports: None Endocrine/Metabolic History: Reports: None Hematologic History: Reports: None Immunologic History: Reports: None Oncologic (Cancer) History: Reports: None Dermatologic History: Reports: None - Infectious Disease History Infectious Disease History: Reports: None - Past Surgical History Head Surgeries/Procedures: Reports: None HEENT Surgical History: Reports: None Cardiovascular Surgical History: Reports: None Respiratory Surgical History: Reports: None GI Surgical History: Reports: None Female Surgical History: Reports: None Endocrine Surgical History: Reports: None Neurological Surgical History: Reports: None Musculoskeletal Surgical History: Reports: None Oncologic Surgical History: Reports: None Dermatological Surgical History: Reports: None Social & Family History - Family History Family Medical History: No Pertinent Family History Cardiac: Reports: Hypertension OBGYN: Reports: - Tobacco Use Tobacco Use Status *Q: Former Tobacco User - Caffeine Use Caffeine Use: Reports: Soda - Alcohol Use Alcohol Use History: No - Recreational Drug Use Recreational Drug Use: No H&P Review of Systems - Review of Systems: Review Of Systems: Comprehensive ROS is negative, except as noted in HPI. General: Reports: No Symptoms HEENT: Reports: No Symptoms Pulmonary: Reports: No Symptoms Cardiovascular: Reports: No Symptoms Gastrointestinal: Reports: No Symptoms Genitourinary: Reports: No Symptoms Musculoskeletal: Reports: No Symptoms Skin: Reports: No Symptoms Psychiatric: Reports: No Symptoms Neurological: Reports: No Symptoms Hematologic/Lymphatic: Reports: No Symptoms Immunologic: Reports: No Symptoms L&D Exam - Exam Exam: See Below - Vital Signs Vital Signs: VSS, afebrile. See flowsheet - OB Specific Movement: Not Appreciated Heart Tones: Not [place] - Exam General: Alert, Oriented, Cooperative, Mild Distress HEENT: Conjunctiva Clear, Hearing Intact, Mucosa Moist & [place], PERRLA Neck: Supple, Trachea Midline Lungs: Clear to Auscultation, Normal Respiratory Effort Cardiovascular: Regular Rate, Regular Rhythm GI/Abdominal Exam: Normal Bowel Sounds, Soft, Non-Tender, No Organomegaly, No Distention Rectal Exam: Deferred Genitourinary: Enlarged uterus (U-2) Back Exam: Normal Inspection, Full Range of Motion Extremities: Normal Inspection, Normal Range of Motion, Non-Tender, No Pedal Edema, Normal Capillary Refill Skin: Warm, Dry, Intact Neurological: Cranial Nerves Intact, Reflexes Equal Bilateral Psychiatric: Alert, Normal Affect, Normal Mood - Patient Data Lab Results Last 24 hrs: Laboratory Results - last 24 hr 11/30/20 11/30/20 11/30/20 Range/Units 15:00 15:00 15:05 WBC 8.80 (4.0-11.0) K/uL RBC 4.08 L (4.30-5.90) M/uL Hgb 9.6 L (12.0-16.0) g/dL Hct 31.8 L (36.0-46.0) % MCV 77.9 L (80.0-98.0) fL MCH 23.5 L (27.0-32.0) pg MCHC 30.2 L (31.0-37.0) g/dL RDW Std Deviation 46.3 (28.0-62.0) fl RDW Coeff of Pete 16 H (11.0-15.0) % Plt Count 225 (150-400) K/uL MPV 11.10 (7.40-12.00) fL Nucleated RBC % 0.0 /100WBC Nucleated RBCs # 0 K/uL SARS-CoV-2 RNA (NORMAN) NEGATIVE (NEGATIVE) Blood Type A POSITIVE Antibody Screen NEGATIVE Result Diagrams: 11/30/20 15:00 - Problem List (1) Missed with demise before 20 completed weeks of gestation SNOMED Code(s): 39101810 ICD Code: O02.1 - MISSED Status: Acute Priority: High Current Visit: Yes (2) Encounter for induction of labor SNOMED Code(s): 614760502 ICD Code: Z34.90 - ENCNTR FOR SUPRVSN OF NORMAL , UNSP, UNSP TRIMEST ER Status: Acute Priority: High Current Visit: Yes Problem List Initiated/Reviewed/Updated: Yes Orders Last 24hrs: Active Orders 24 hr Category Date Time Status Patient Status [ADT] Routine ADT 11/30/20 14:20 Active May Shower [RC] ASDIRECTED Care 11/30/20 14:20 Active No Vaginal Exam [RC] Click to Edit Care 11/30/20 17:30 Active Notify Provider [RC] PRN Care 11/30/20 14:20 Active Up ad Ashley [RC] ASDIRECTED Care 11/30/20 14:20 Active Vital Signs [RC] PER UNIT ROUTINE Care 11/30/20 14:20 Active Vital Signs [RC] Q4H Care 11/30/20 17:30 Active RPR (SYPHILIS SERO) W/ RFLX [REF] Routine Lab 11/30/20 15:00 Received Acetaminophen/oxyCODONE [Percocet 325-5 MG] Med 11/30/20 14:20 Active 1 - 2 tab PO Q4H PRN Carboprost Tromethamine [Hemabate DS] Med 11/30/20 14:20 Active 250 mcg IM ASDIRECTED PRN LORazepam [Ativan] Med 11/30/20 14:25 Active 0.5 mg PO Q4H PRN Lactated Ringers [Ringers, Lactated] 1,000 ml Med 11/30/20 14:30 Active IV ASDIRECTED Lidocaine 1% [Xylocaine 1%] Med 11/30/20 14:20 Active 50 ml INJECT ONETIME PRN Methylergonovine [Methergine] Med 11/30/20 14:20 Active 0.2 mg IM ASDIRECTED PRN Ondansetron [Zofran] Med 11/30/20 14:20 Active 4 mg IVPUSH Q6H PRN Oxytocin/0.9 % Sodium Chloride [Oxytocin 30 Unit/500 ML Med 11/30/20 14:30 Active -NS] 30 unit in 500 ml IV TITRATE Sodium Chloride 0.9% [Normal Saline] Med 11/30/20 14:20 Active 10 ml IV ASDIRECTED PRN Sodium Chloride 0.9% [Saline Flush] Med 11/30/20 14:20 Active 10 ml FLUSH ASDIRECTED PRN Sodium Chloride 0.9% [Saline Flush] Med 11/30/20 14:20 Active 2.5 ml FLUSH ASDIRECTED PRN Tranexamic Acid [Cyklokapron] 1,000 mg Med 11/30/20 14:20 Active Sodium Chloride 0.9% [Normal Saline] 100 ml IV ONETIME Water For Irrigation,Sterile [Sterile Water for Med 11/30/20 14:20 Active Irrigation] 1,000 ml IRR ASDIRECTED PRN miSOPROStoL [Cytotec] Med 11/30/20 14:20 Active 200 mcg PO ONETIME PRN miSOPROStoL [Cytotec] Med 11/30/20 14:26 Active 200 mcg PO Q6H PRN Peripheral IV Insertion Adult [OM.PC] Routine Oth 11/30/20 14:20 Ordered Resuscitation Status Routine Resus Stat 11/30/20 14:20 Ordered Medication Orders Carboprost Tromethamine (Hemabate Ds) 250 mcg IM ASDIRECTED PRN PRN Reason: Post Hemorrhage Oxytocin/Sodium Chloride (Oxytocin 30 Unit/500 Ml-Ns) 30 unit in 500 mls @ 999 mls/hr IV TITRATE [facility] Tranexamic Acid 1,000 mg/ (Sodium Chloride) 110 mls @ 660 mls/hr IV ONETIME PRN PRN Reason: Bleeding Lactated Ringer's (Ringers, Lactated) 1,000 mls @ 150 mls/hr IV ASDIRECTED TEJAS Lidocaine HCl (Xylocaine 1%) 50 ml INJECT ONETIME PRN PRN Reason: Laceration repair Lorazepam (Ativan) 0.5 mg PO Q4H PRN PRN Reason: Anxiety Methylergonovine Maleate (Methergine) 0.2 mg IM ASDIRECTED PRN PRN Reason: Post Hemorrhage Misoprostol (Cytotec) 200 mcg PO ONETIME PRN PRN Reason: Post Hemorrhage Misoprostol (Cytotec) 200 mcg PO Q6H PRN PRN Reason: Other Last Admin: 11/30/20 16:20 Dose: 200 mcg Documented by: [id number] Ondansetron HCl (Zofran) 4 mg IVPUSH Q6H PRN PRN Reason: Nausea/Vomiting Oxycodone/Acetaminophen (Percocet 325-5 Mg) 1 - 2 tab PO Q4H PRN PRN Reason: Pain (moderate 4-6) Sodium Chloride (Saline Flush) 10 ml FLUSH ASDIRECTED PRN PRN Reason: Keep Vein Open Sodium Chloride (Saline Flush) 2.5 ml FLUSH ASDIRECTED PRN PRN Reason: Keep Vein Open Sodium Chloride (Normal Saline) 10 ml IV ASDIRECTED PRN PRN Reason: IV Use Sterile Water (Sterile Water For Irrigation) 1,000 ml IRR ASDIRECTED PRN PRN Reason: delivery Assessment/Plan Comment:: Admit to inpatient observation for IOL S/P missed AB with demise <20 weeks gestation. RBAs of IOL and mode of cervical ripening (ORAL cytotec) discussed, consents signed. Defer TOCO monitoring. VS q 4 hrs or more frequently if indicated. May ambulate and hydrotherapy as desired. May receive epidural if desired. Pastoral care consulted and at bedside. See new orders. Dr. Escalona notified and agreeable with POC.
[2020-12-01] MEDS: Morphine 2 MG/ML SYRINGE IVPUSH PRN ×2 (01:59→03:45)
[2020-12-01] MEDS ORDERED: Oxytocin 10 Units/1 ML SDV ONE (03:24)
[2020-12-01] MEDS ORDERED: Oxytocin 10 Units/1 ML SDV IM ONE (03:29)
[2020-12-01] MEDS ORDERED: Diphtheria,Pertussis(Acell),Tetanus Vaccine 0.5 ML Syringe IM ONE (04:00)
[2020-12-01] MEDS ORDERED: Ibuprofen 800 MG Tab PO PRN ×2 (04:25→04:34)
[2020-12-01] MEDS ORDERED: Carboprost Tromethamine 250 MCG/1 ML Amp IM PRN (04:34)
[2020-12-01] MEDS ORDERED: Methylergonovine 0.2 MG/1 ML Amp IM PRN (04:34)
--- NOTE | 2020-12-01 04:50 | PCM.DEL ---
L & D Note - General Info Date of Service: 12/01/20 Mother's Due Date: 04/19/21 - Delivery Note Labor: Spontaneous Cervical Ripening Method: Misoprostil Delivery Outcome: Miscarriage Delivery Method: Spontaneous Vaginal Delivery-Single Delivery Mode: Spontaneous Presentation: Vertex Nuchal Cord: None Anesthesia Type: None Amniotic Fluid Description: Brown, sedimentary, non-odorous Episiotomy Type: None Laceration: None Placenta: Intact, Spontaneous Cord: 3 Vessels Estimated Blood Loss: 300 Score 1 min: 0 Score 5 min: 0 Score 10 min: 0 Second Stage Interventions: Reports: Encouragement Given, Pushing Effectively, Other (see below) (Semi-fowlers ) Delivery Comments (Free Text/Narrative):: Magda is a 25 yo 023 S/P of demise ~19-20 weeks gestation (JAKE(LMP) 04/19/2021) following IOL following spontaneous demise without onset of labor (missed SAB) between 18-20 weeks gestation. 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 A pos, Ab screen neg, RI, GBS unknown. Patient expressed increased pain with vaginal pressure, CNM and RN at bedside. Patient began pushing spontaneously, effectively. SROM of brown, non-odorous fluid. head and body delivered spontaneously with following push, deteriorating male fetus with no gross physical abnormalities noted except umbilical cord notably narrowed at abdominal wall insertion. Umbilical cord intact, clamped x2, cut by FOB. 10 units pitocin IM left anterior thigh administered for prophylaxis. Placenta delivered spontaneously <30 minutes S/P fetus; intact, Ramirez, 3VC, velamentous cord insertion. Placenta sent to pathology for analysis. Apgars 0,0,0. weight 263 grams, measurements pending. Patient and decline TORCH t esting at this time. - General Info Date of Service: 12/01/20 Admission Dx/Problem (Free Text): Patient Status Order with Admit Dx/Problem 11/30/20 14:20 Patient Status [ADT] Routine Admission Diagnosis/Problem Admission Diagnosis/Problem 11/30/20 17:33 Magda is a 25 yo 013 at 20+0 weeks gestation (JAKE(LMP) 04/19/2021) that presents to L&D today for IOL following spontaneous demise without onset of labor (missed SAB) between 18-20 weeks gestation. 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 Patient seen in office 09/21/2020 for IOB visit with Dr. Escalona and has not had follow-up since. Patient presented to ED 11/29/2020 with subsequent demise diagnosis via US confirmed with doppler color flow. Denies fever, chills, sweating, SOB, pain, irina vaginal bleeding, LOF, contractions at this time. A pos, Ab screen neg, RI, GBS unknown. Pertinent medical history includes: thyroid abnormalities in prior , SVDx3, SABx1. NKDA. Medications: PNV. Patient has no other complaints or concerns at this time. 11/30/20 17:38 Functional Status: Reports: Pain Controlled, Tolerating Diet, Ambulating, U rinating - Review of Systems General: Reports: No Symptoms HEENT: Reports: No Symptoms Pulmonary: Reports: No Symptoms Cardiovascular: Reports: No Symptoms Gastrointestinal: Reports: No Symptoms Genitourinary: Reports: No Symptoms Musculoskeletal: Reports: No Symptoms Skin: Reports: No Symptoms Neurological: Reports: No Symptoms Psychiatric: Reports: No Symptoms - Patient Data Vitals - Most Recent: VSS, afebrile. See flowsheet. Weight - Most Recent: 181 lb Lab Results Last 24 Hours: Laboratory Results - last 24 hr 11/30/20 11/30/20 11/30/20 Range/Units 15:00 15:00 15:05 WBC 8.80 (4.0-11.0) K/uL RBC 4.08 L (4.30-5.90) M/uL Hgb 9.6 L (12.0-16.0) g/dL Hct 31.8 L (36.0-46.0) % MCV 77.9 L (80.0-98.0) fL MCH 23.5 L (27.0-32.0) pg MCHC 30.2 L (31.0-37.0) g/dL RDW Std Deviation 46.3 (28.0-62.0) fl RDW Coeff of Pete 16 H (11.0-15.0) % Plt Count 225 (150-400) K/uL MPV 11.10 (7.40-12.00) fL Nucleated RBC % 0.0 /100WBC Nucleated RBCs # 0 K/uL SARS-CoV-2 RNA ([facility]MAN) NEGATIVE (NEGATIVE) Blood Type A POSITIVE Antibody Screen NEGATIVE Med Orders - Current: Current Medications Carboprost Tromethamine (Hemabate Ds) 250 mcg IM ASDIRECTED PRN PRN Reason: Post Hemorrhage Ibuprofen (Motrin) 800 mg PO Q8H PRN PRN Reason: Pain Influenza Virus Vaccine (Flublok Quad [id number] Syringe) 180 mcg IM .ONCE ONE Stop: 12/01/20 09:01 Methylergonovine Maleate (Methergine) 0.2 mg IM ASDIRECTED PRN PRN Reason: Post Hemorrhage Discontinued Medications Carboprost Tromethamine (Hemabate Ds) 250 mcg IM ASDIRECTED PRN PRN Reason: Post Hemorrhage Diphtheria/Tetanus/Acell Pertussis (Adacel) 0.5 ml IM .ONCE ONE Stop: 12/01/20 04:01 Oxytocin/Sodium Chloride (Oxytocin 30 Unit/500 Ml-Ns) 30 unit in 500 mls @ 999 mls/hr IV TITRATE TEJAS Tranexamic Acid 1,000 mg/ (Sodium Chloride) 110 mls @ 660 mls/hr IV ONETIME PRN PRN Reason: Bleeding Lactated Ringer's (Ringers, Lactated) 1,000 mls @ 150 mls/hr IV ASDIRECTED TEJAS Ibuprofen (Motrin) 800 mg PO Q8H PRN PRN Reason: Pain Influenza Virus Vaccine (Pharmacy To Dose - Influenza Vaccine) 1 each IM ONETIME ONE Stop: 12/01/20 04:01 Lidocaine HCl (Xylocaine 1%) 50 ml INJECT ONETIME PRN PRN Reason: Laceration repair Lorazepam (Ativan) 0.5 mg PO Q4H PRN PRN Reason: Anxiety Methylergonovine Maleate (Methergine) 0.2 mg IM ASDIRECTED PRN PRN Reason: Post Hemorrhage Misoprostol (Cytotec) 200 mcg PO ONETIME PRN PRN Reason: Post Hemorrhage Misoprostol (Cytotec) 200 mcg PO Q6H PRN PRN Reason: Other Last Admin: 11/30/20 22:30 Dose: 200 mcg Documented by: Morphine Sulfate (Morphine) 2 mg IVPUSH Q2H PRN PRN Reason: Pain Last Admin: 12/01/20 03:45 Dose: 2 mg Documented by: Ondansetron HCl (Zofran) 4 mg IVPUSH Q6H PRN PRN Reason: Nausea/Vomiting Last Admin: 12/01/20 02:07 Dose: 4 mg Documented by: Oxycodone/Acetaminophen (Percocet 325-5 Mg) 1 - 2 tab PO Q4H PRN PRN Reason: Pain (moderate 4-6) Last Admin: 11/30/20 21:36 Dose: 1 tab Documented by: Oxytocin (Pitocin) Confirm Administered Dose 10 unit .ROUTE .STK-MED ONE Stop: 12/01/20 03:25 Oxytocin (Pitocin) 10 unit IM ONETIME ONE Stop: 12/01/20 03:30 Sodium Chloride (Saline Flush) 10 ml FLUSH ASDIRECTED PRN PRN Reason: Keep Vein Open Sodium Chloride (Saline Flush) 2.5 ml FLUSH ASDIRECTED PRN PRN Reason: Keep Vein Open Sodium Chloride (Normal Saline) 10 ml IV ASDIRECTED PRN PRN Reason: IV Use Sterile Water (Sterile Water For Irrigation) 1,000 ml IRR ASDIRECTED PRN PRN Reason: delivery - Exam General: Alert, Oriented, Cooperative, Moderate Distress HEENT: Pupils Equal, Pupils Reactive, Mucous Membr. Moist/[place] Neck: Supple Lungs: Clear to Auscultation, Normal Respiratory Effort Cardiovascular: Regular Rate, Regular Rhythm GI/Abdominal Exam: Normal Bowel Sounds, Soft, Non-Tender, No Organomegaly, No Distention (Female) Exam: Normal External Exam, Enlarged Uterus ( uterus, firm U-1), Vaginal Bleeding (Scant rubra lochia, no clots) Back Exam: Normal Inspection, Full Range of Motion Extremities: Normal Inspection, Normal Range of Motion, Non-Tender, No Pedal Edema, Normal Capillary Refill Skin: Warm, Dry, Intact Neurological: No New Focal Deficit Psy/Mental Status: Alert, Normal Affect, Normal Mood - Problem List & Annotations (1) Missed with demise before 20 completed weeks of gestation SNOMED Code(s): 38955030 Code(s): O02.1 - MISSED Status: Acute Priority: High Current Visit: Yes (2) Encounter for induction of labor SNOMED Code(s): 509875147 Code(s): Z34.90 - ENCNTR FOR SUPRVSN OF NORMAL , UNSP, UNSP TRIMESTER Status: Acute Priority: High Current Visit: Yes - Problem List Review Problem List Initiated/Reviewed/Updated: Yes - My Orders Last 24 Hours: My Active Orders 11/30/20 15:00 RPR (SYPHILIS SERO) W/ RFLX [REF] Routine 11/30/20 19:32 Influenza Vaccine Charge [RC] .DISCHARGE Vaccines to be Administered [RC] PER UNIT ROUTINE 12/01/20 04:34 May Shower [RC] ASDIRECTED Up ad Ashley [RC] ASDIRECTED Carboprost Tromethamine [Hemabate DS] 250 mcg IM ASDIRECTED PRN Ibuprofen [Motrin] 800 mg PO Q8H PRN Methylergonovine [Methergine] 0.2 mg IM ASDIRECTED PRN Resuscitation Status Routine 12/01/20 04:35 Patient Status [ADT] Routine Vital Signs [RC] PER UNIT ROUTINE 12/01/20 04:37 Fundal Height [Assess Uterine Involution] [WOMSER] Per Unit Routine - Plan Plan:: Admit to observation S/P vaginal delivery of missed AB with demise <20 weeks gestation following IOL. May ambulate and hydrotherapy as desired. If patient does not void within 6 hours S/P delivery, please contact provider. Continue pastoral care as needed. See new orders. Dr. Escalona notified and agreeable with POC.
[2020-12-01] MEDS ORDERED: FLU VAC QV 2020(18YR UP)RCM/PF 180 MCG/0.5 ML SYRINGE IM ONE (09:00)
--- NOTE | 2020-12-01 10:01 | PCM.DCSUM1 ---
Discharge Summary - Hospital Course Free Text/Narrative:: Magda is a 25 yo 023 ~4-5 hours S/P of demise ~19-20 weeks gestation (JAKE(LMP) 04/19/2021) following IOL following spontaneous demise without onset of labor (missed SAB) between 18-20 weeks gestation. 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 A pos, Ab screen neg, RI, GBS unknown. Patient has no complaints or concerns at this time. Patient reports she is eating, voiding, ambulating independently and without difficulty. Patient denies any problems or concerns at this time except mild-moderate intermittent uterine cramping relieved with Ibuprofen. Patient reports scant vaginal bleeding with no clots. [facility] home contacted to pick fetus up for cremation per patient request. Patient reports appropriate bonding with and fetus, verbalizes her readiness to be discharged home now. Diagnosis: Stroke: No - Discharge Data Discharge Date: 12/01/20 Discharge Disposition: Home, Self-Care 01 Condition: Good - Referral to Home Health Primary Care Physician: PCP None - Discharge Diagnosis/Problem(s) (1) Missed with demise before 20 completed weeks of gestation SNOMED Code(s): 22378196 ICD Code: O02.1 - MISSED Status: Acute Priority: High Current Visit: Yes (2) Encounter for induction of labor SNOMED Code(s): 223976378 ICD Code: Z34.90 - ENCNTR FOR SUPRVSN OF NORMAL , UNSP, UNSP TRIMESTER Status: Acute Priority: High Current Visit: Yes - Patient Instructions Diet: Usual Diet as Tolerated, Regular Diet as Tolerated, Drink 8-10+ Glasses/Day Activity: As Tolerated, No Strenuous Activities, Rest and Relax Today Driving: May Drive Today Showering/Bathing: May Shower Notify Provider of: Fever, Increased Pain, Swelling and Redness, Drainage, Nausea and/or Vomiting - Discharge Plan *PRESCRIPTION DRUG MONITORING PROGRAM REVIEWED*: No *COPY OF PRESCRIPTION DRUG MONITORING REPORT IN PATIENT FRANCISCO: No Prescriptions/Med Rec: Ibuprofen [Motrin] 800 mg PO Q8H PRN #90 tablet PRN Reason: Pain Home Medications: Home Meds Iron 1 tab PO DAILY 11/29/20 [History] Pnv No.95/Ferrous Fum/Folic AC [ Vitamin Tablet] 1 tab PO DAILY 11/29/20 [History] Ibuprofen [Motrin] 800 mg PO Q8H PRN #90 tablet 12/01/20 [Rx] Oxygen Therapy Mode: Room Air Patient Handouts: Vaginal Delivery, Loss, Care After Referrals: [facility],Clinic [Ordering Only Provider] - (Please call the clinic at [phone] Thursday morning to receive your appointment date and time.) - Discharge Summary/Plan Comment DC Time >30 min.: No Discharge Summary/Plan Comment: Hemodynamically stable, afebrile. EBL ~300. Continue iron PO daily as prescribed. Plan for H/H if indicated re: symptomatic. F/U in office in 2-3 days, or sooner if problems arise. Warning S/Ss, when to call for help discussed by RN. - General Info Date of Service: 12/01/20 Admission Dx/Problem (Free Text: Patient Status Order with Admit Dx/Problem 11/30/20 14:20 Patient Status [ADT] Routine Admission Diagnosis/Problem Admission Diagnosis/Problem 11/30/20 17:33 Magda is a 25 yo 013 at 20+0 weeks gestation (JAKE(LMP) 04/19/2021) that presents to L&D today for IOL following spontaneous demise without onset of labor (missed SAB) between 18-20 weeks gestation. 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 Patient seen in office 09/21/2020 for IOB visit with Dr. Escalona and has not had follow-up since. Patient presented to ED 11/29/2020 with subsequent demise diagnosis via US confirmed with doppler color flow. Denies fever, chills, sweating, SOB, pain, irina vaginal bleeding, LOF, contractions at this time. A pos, Ab screen neg, RI, GBS unknown. Pertinent medical history includes: thyroid abnormalities in prior , SVDx3, SABx1. NKDA. Medications: PNV. Patient has no other complaints or concerns at this time. 11/30/20 17:38 Functional Status: Reports: Pain Controlled, Tolerating Diet, Ambulating, Urinating - Review of Systems General: Reports: No Symptoms HEENT: Reports: No Symptoms Pulmonary: Reports: No Symptoms Cardiovascular: Reports: No Symptoms Gastrointestinal: Reports: No Symptoms Genitourinary: Reports: No Symptoms Musculoskeletal: Reports: No Symptoms Skin: Reports: No Symptoms Neurological: Reports: No Symptoms Psychiatric: Reports: No Symptoms - Patient Data Vitals - Most Recent: VSS, afebrile. See flowsheet. Weight - Most Recent: 181 lb Lab Results - Last 24 hrs: Laboratory Results - last 24 hr 11/30/20 11/30/20 11/30/20 Range/Units 15:00 15:00 15:05 WBC 8.80 (4.0-11.0) K/uL RBC 4.08 L (4.30-5.90) M/uL Hgb 9.6 L (12.0-16.0) g/dL Hct 31.8 L (36.0-46.0) % MCV 77.9 L (80.0-98.0) fL MCH 23.5 L (27.0-32.0) pg MCHC 30.2 L (31.0-37.0) g/dL RDW Std Deviation 46.3 (28.0-62.0) fl RDW Coeff of Pete 16 H (11.0-15.0) % Plt Count 225 (150-400) K/uL MPV 11.10 (7.40-12.00) fL Nucleated RBC % 0.0 /100WBC Nucleated RBCs # 0 K/uL SARS-CoV-2 RNA ([facility]) NEGATIVE (NEGATIVE) Blood Type A POSITIVE Antibody Screen NEGATIVE Med Orders - Current: Current Medications Carboprost Tromethamine (Hemabate Ds) 250 mcg IM ASDIRECTED PRN PRN Reason: Post Hemorrhage Ibuprofen (Motrin) 800 mg PO Q8H PRN PRN Reason: Pain Last Admin: 12/01/20 04:57 Dose: 800 mg Documented by: Methylergonovine Maleate (Methergine) 0.2 mg IM ASDIRECTED PRN PRN Reason: Post Hemorrhage Discontinued Medications Carboprost Tromethamine (Hemabate Ds) 250 mcg IM ASDIRECTED PRN PRN Reason: Post Hemorrhage Diphtheria/Tetanus/Acell Pertussis (Adacel) 0.5 ml IM .ONCE ONE Stop: 12/01/20 04:01 Oxytocin/Sodium Chloride (Oxytocin 30 Unit/500 Ml-Ns) 30 unit in 500 mls @ 999 mls/hr IV TITRATE TEJAS Tranexamic Acid 1,000 mg/ (Sodium Chloride) 110 mls @ 660 mls/hr IV ONETIME PRN PRN Reason: Bleeding Lactated Ringer's (Ringers, Lactated) 1,000 mls @ 150 mls/hr IV ASDIRECTED TEJAS Ibuprofen (Motrin) 800 mg PO Q8H PRN PRN Reason: Pain Influenza Virus Vaccine (Pharmacy To Dose - Influenza Vaccine) 1 each IM ONETIME ONE Stop: 12/01/20 04:01 Influenza Virus Vaccine (Flublok Quad [id number] Syringe) 180 mcg IM .ONCE ONE Stop: 12/01/20 09:01 Lidocaine HCl (Xylocaine 1%) 50 ml INJECT ONETIME PRN PRN Reason: Laceration repair Lorazepam (Ativan) 0.5 mg PO Q4H PRN PRN Reason: Anxiety Methylergonovine Maleate (Methergine) 0.2 mg IM ASDIRECTED PRN PRN Reason: Post Hemorrhage Misoprostol (Cytotec) 200 mcg PO ONETIME PRN PRN Reason: Post Hemorrhage Misoprostol (Cytotec) 200 mcg PO Q6H PRN PRN Reason: Other Last Admin: 11/30/20 22:30 Dose: 200 mcg Documented by: Morphine Sulfate (Morphine) 2 mg IVPUSH Q2H PRN PRN Reason: Pain Last Admin: 12/01/20 03:45 Dose: 2 mg Documented by: Ondansetron HCl (Zofran) 4 mg IVPUSH Q6H PRN PRN Reason: Nausea/Vomiting Last Admin: 12/01/20 02:07 Dose: 4 mg Documented by: Oxycodone/Acetaminophen (Percocet 325-5 Mg) 1 - 2 tab PO Q4H PRN PRN Reason: Pain (moderate 4-6) Last Admin: 11/30/20 21:36 Dose: 1 tab Documented by: Oxytocin (Pitocin) Confirm Administered Dose 10 unit .ROUTE .STK-MED ONE Stop: 12/01/20 03:25 Oxytocin (Pitocin) 10 unit IM ONETIME ONE Stop: 12/01/20 03:30 Sodium Chloride (Saline Flush) 10 ml FLUSH ASDIRECTED PRN PRN Reason: Keep Vein Open Sodium Chloride (Saline Flush) 2.5 ml FLUSH ASDIRECTED PRN PRN Reason: Keep Vein Open Sodium Chloride (Normal Saline) 10 ml IV ASDIRECTED PRN PRN Reason: IV Use Sterile Water (Sterile Water For Irrigation) 1,000 ml IRR ASDIRECTED PRN PRN Reason: delivery - Exam General: Reports: Alert, Oriented, Cooperative, No Acute Distress HEENT: Reports: Pupils Equal, Mucous Membr. Moist/[place] Neck: Reports: Supple Lungs: Reports: Clear to Auscultation, Normal Respiratory Effort Cardiovascular: Reports: Regular Rate, Regular Rhythm GI/Abdominal Exam: Normal Bowel Sounds, Soft, Non-Tender, No Organomegaly, No Distention (Female) Exam: Normal External Exam, Enlarged Uterus ( uterus, firm U-1), Vaginal Bleeding (Scant rubra lochia, no clots.) Rectal (Female) Exam: Deferred Back Exam: Reports: Normal Inspection, Full Range of Motion Extremities: Normal Inspection, Normal Range of Motion, Non-Tender, No Pedal Edema, Normal Capillary Refill Skin: Reports: Warm, Dry, Intact Neurological: Reports: No New Focal Deficit Psy/Mental Status: Reports: Alert, Normal Affect, Normal Mood
== END 2020-12-01 08:39 | disposition home or self-care (01) ==
LOC: MW.OB 13:54
PROVIDERS: ADMIT Obstetrics & Gynecology; ATTEND Obstetrics & Gynecology
DX: O02.1 Missed abortion (principal); Z3A.20 20 weeks gestation of pregnancy
CPT/HCPCS: 85027; 86592; 86850; 86900; 86901; 87635; 88305; 96374; 96375; 96376; A9270; G0378; J2270; J2405; J2590; 36415; U0002

== ENCOUNTER 2021-02-14 15:15 | Emergency (ER) | payer SELFPAY ==
[2021-02-14] MEDS ORDERED: Sodium Chloride 0.9% 1,000 ML IV ONE (15:36)
[2021-02-14] MEDS ORDERED: Morphine 4 MG/ML Syringe IVPUSH ONE (15:36)
[2021-02-14] MEDS ORDERED: Ondansetron 4 MG/2 ML SDV IVPUSH ONE (15:36)
--- NOTE | 2021-02-14 15:41 | EDM.PDOC ---
<Christophe Lynch - Last Filed: 02/14/21 18:56> ED HPI GENERAL MEDICAL PROBLEM - General Chief Complaint: Abdominal Pain Stated Complaint: PAIN IN STOMACH Time Seen by Provider: 02/14/21 15:16 Source of Information: Reports: Patient History Limitations: Reports: No Limitations - History of Present Illness INITIAL COMMENTS - FREE TEXT/NARRATIVE: Patient is a 25-year-old Arabic-speaking female who presents today for diffuse abdominal pain. 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 Patient states that she has pain from epigastric going away down to suprapubic area. The pain started about 1 hour prior to arrival. Patient also reported some nausea or vomiting. Patient's pain is made worse with touching but not made worse with any other events. Patient denies radiation of pain. Patient denies any urinary symptoms. - Related Data Allergies Allergy/AdvReac Type Severity Reaction Status Date / Time No Known Allergies Allergy Verified 02/14/21 15:30 Home Meds: Home Meds Iron 1 tab PO DAILY 11/29/20 [History] Pnv No.95/Ferrous Fum/Folic AC [ Vitamin Tablet] 1 tab PO DAILY 11/29/20 [History] Ibuprofen [Motrin] 800 mg PO Q8H PRN #90 tablet 12/01/20 [Rx] Ibuprofen 600 mg PO Q6HR PRN #30 tablet 02/14/21 [Rx] Past Medical History - Past Health History Medical/Surgical History: Denies Medical/Surgical History HEENT History: Reports: None Cardiovascular History: Reports: None Respiratory History: Reports: None Gastrointestinal History: Reports: None Genitourinary History: Reports: None 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: , 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 Musculoskeletal History: Reports: None Neurological History: Reports: None Psychiatric History: Reports: None Endocrine/Metabolic History: Reports: None Hematologic History: Reports: None Immunologic History: Reports: None Oncologic (Cancer) History: Reports: None Dermatologic History: Reports: None - Infectious Disease History Infectious Disease History: Reports: None - Past Surgical History Head Surgeries/Procedures: Reports: None HEENT Surgical History: Reports: None Cardiovascular Surgical History: Reports: None Respiratory Surgical History: Reports: None GI Surgical History: Reports: None Female Surgical History: Reports: None Endocrine Surgical History: Reports: None Neurological Surgical History: Reports: None Musculoskeletal Surgical History: Reports: None Oncologic Surgical History: Reports: None Dermatological Surgical History: Reports: None Social & Family History - Family History Family Medical History: No Pertinent Family History Cardiac: Reports: Hypertension OBGYN: Reports: - Tobacco Use Tobacco Use Status *Q: Never Tobacco User - Caffeine Use Caffeine Use: Reports: Coffee, Soda - Recreational Drug Use Recreational Drug Use: No ED ROS GENERAL - Review of Systems Review Of Systems: See Below Constitutional: Reports: No Symptoms HEENT: Reports: No Symptoms Respiratory: Reports: No Symptoms Cardiovascular: Reports: No Symptoms Endocrine: Reports: No Symptoms GI/Abdominal: Reports: Abdominal Pain, Nausea, Vomiting : Reports: No Symptoms Musculoskeletal: Reports: No Symptoms Skin: Reports: No Symptoms Neurological: Reports: No Symptoms Psychiatric: Reports: No Symptoms Hematologic/Lymphatic: Reports: No Symptoms Immunologic: Reports: No Symptoms ED EXAM, GI/ABD - Physical Exam Exam: See Below Exam Limited By: No Limitations General Appearance: Alert, WD/WN, No Apparent Distress Respiratory/Chest: No Respiratory Distress, Lungs Clear, Normal Breath Sounds Cardiovascular: Normal Peripheral Pulses, Regular Rate, Rhythm GI/Abdominal Exam: Normal Bowel Sounds, Soft, Tender Extremities: Normal Inspection, Normal Range of Motion Neurological: Alert, Oriented, CN II-XII Intact Course - Re-Assessments/Exams Free Text/Narrative Re-Assessment/Exam: 02/14/21 18:[address] scan show possible metal 6 with right next mass will obtain ultrasound reassess patient be signed to come attending. Departure - Departure Time of Disposition: 18:57 Disposition: Home, Self-Care 01 Condition: Good Clinical Impression: Hemorrhagic ovarian cyst Abdominal pain Qualifiers: Abdominal location: lower abdomen, unspecified Qualified Code(s): R10.30 - Lower abdominal pain, unspecified - Discharge Information Prescriptions: Ibuprofen 600 mg PO Q6HR PRN #30 tablet PRN Reason: Pain Instructions: Abdominal Pain, Adult, Ovarian Cyst Referrals: PCP,None [Primary Care Provider] - Forms: ED Department Discharge Additional Instructions: You were seen and evaluated in the ER today secondary to pain in your abdomen. The CT scan of your abdomen pelvis did not show any significant abnormalities but there was a concern regarding some fluid in your pelvis that they felt was probably secondary to a cyst that was ruptured and bleeding. The ultrasound that was performed confirmed that the fluid in the abnormality was from a ovar earl cyst that ruptured and resulted in some bleeding. This is generally treated with ibuprofen and pain medicines. Please return to the ER if you start experiencing any weakness, dizziness, worsening abdominal pain. You will be given a prescription for ibuprofen to assist you with your pain and discomfort. The following information is given to patients seen in the emergency department who are being discharged to home. This information is to outline your options for follow-up care. We provide all patients seen in our emergency department with a follow-up referral. The need for follow-up, as well as the timing and circumstances, are variable depending upon the specifics of your emergency department visit. If you don't have a primary care physician on staff, we will provide you with a referral. We always advise you to contact your personal physician following an emergency department visit to inform them of the circumstance of the visit and for follow-up with them and/or the need for any referrals to a consulting specialist. The emergency department will also refer you to a specialist when appropriate. This referral assures that you have the opportunity for follow-up care with a specialist. All of these measure are taken in an effort to provide you with optimal care, which includes your follow-up. Under all circumstances we always encourage you to contact your private physi aide who remains a resource for coordinating your care. When calling for follow- up care, please make the office aware that this follow-up is from your recent emergency room visit. If for any reason you are refused follow-up, please contact the [facility] Emergency Department at and asked to speak to the emergency department charge nurse. [facility] - [facility] [address] [place] [id number] [address] Sepsis Event Note (ED) - Evaluation Sepsis Screening Result: No Definite Risk - Assessment/Plan Plan: Patient is a 25-year-old female who presents today for diffuse abdominal pain. Patient's tenderness on exam. Will obtain labs U and CT scan. <Darren Zuñiga - Last Filed: 02/14/21 20:46> ED HPI GENERAL MEDICAL PROBLEM - History of Present Illness INITIAL COMMENTS - FREE TEXT/NARRATIVE: 8:44 PM: Signout received at 7 PM. This is a 25-year-old female who presents ER today complaining of abdominal pain. Patient had a CT scan of the abdomen pe lvis which revealed concerns regarding possible hemorrhagic ovarian cyst. An ultrasound was obtained of the pelvis which confirmed that patient did have a hemorrhagic ovarian cyst as a likely cause of her discomfort. Will resume with plan as outlined and discharge patient home with ibuprofen and have her follow- up with her doctor in the next 2 to 3 days for reevaluation. I have discussed return precautions with the patient and her . They understand to return to the ER she has any increased dizziness, weakness, abdominal pain. This patient was seen and evaluated during the 2019 SARS-CoV-2 novel coronavirus pandemic period. Community viral transmission is ongoing at time of this encounter and the emergency department is operating under pandemic response procedures. Constitutional: Patient is oriented to person, place, and time. Appears well- developed and well-nourished. No distress. HEENT: Moist mucous membranes Head: Normocephalic and atraumatic Eyes: Right eye exhibits no discharge. Left eye exhibits no discharge. No scleral icterus Neck: Normal range of motion. No tracheal deviation present. Cardiovascular: Normal rate and regular rhythm. Pulmonary: Effort normal, no respiratory distress. Abd: Soft, nondistended, no rebound/guarding, no psoas or obturator signs, no tenderness at Mcberney's point, no Drake's sign. Pt does not present with an exam that would be consistent with an acute surgical abdomen at this time, mild tenderness palpation to her right and left lower quadrants. Musculoskeletal: Normal range of motion Neurologic: Alert and oriented to person, place and time. Skin: [place], warm and dry. Psychiatric: Normal mood and affect. Behavior is normal. Judgment and thought content normal. Nursing note and vital signs have been reviewed Reassessment at the time of disposition demonstrates that the patient is in no acute distress. The patient has remained stable throughout the entire ED visit and is without objective evidence for acute process requiring urgent intervention or hospitalization. The patient is stable for discharge, counseling is provided as documented above, discussed symptomatic treatment and specific co nditions for return. I have spoken with the patient/caregiver and discussed todays findings, in addition to providing specific details for the plan of care. Questions are answered and there is agreement with the plan. ED ROS GENERAL - Review of Systems Review Of Systems: See Below ED EXAM, GI/ABD - Physical Exam Exam: See Below Course - Vital Signs Last Recorded V/S: Last Vital Signs Temp 97.3 F 02/14/21 15:29 Pulse 81 02/14/21 17:10 Resp 18 02/14/21 17:10 BP 114/71 02/14/21 15:29 Pulse Ox 99 02/14/21 17:10 - Orders/Labs/Meds Labs: Laboratory Tests 02/14/21 02/14/21 02/14/21 Range/Units 15:30 15:30 15:30 WBC 10.35 (4.0-11.0) K/uL RBC 4.72 (4.30-5.90) M/uL Hgb 11.7 L (12.0-16.0) g/dL Hct 36.9 (36.0-46.0) % MCV 78.2 L (80.0-98.0) fL MCH 24.8 L (27.0-32.0) pg MCHC 31.7 (31.0-37.0) g/dL RDW Std Deviation 44.8 (28.0-62.0) fl RDW Coeff of Pete 16 H (11.0-15.0) % Plt Count 216 (150-400) K/uL MPV 11.50 (7.40-12.00) fL Neut % (Auto) 77.3 (48.0-80.0) % Lymph % (Auto) 14.2 L (16.0-40.0) % [place] % (Auto) 7.8 (0.0-15.0) % Eos % (Auto) 0.6 (0.0-7.0) % Baso % (Auto) 0.1 (0.0-1.5) % Neut # (Auto) 8.0 H (1.4-5.7) K/uL Lymph # (Auto) 1.5 (0.6-2.4) K/uL [place] # (Auto) 0.8 (0.0-0.8) K/uL Eos # (Auto) 0.1 (0.0-0.7) K/uL Baso # (Auto) 0.0 (0.0-0.1) K/uL Nucleated RBC % 0.0 /100WBC Nucleated RBCs # 0 K/uL Lactate 1.0 (0.20-2.00) mmol/L Sodium 140 (136-145) mmol/L Potassium 3.7 (3.5-5.1) mmol/L Chloride 102 (98-107) mmol/L Carbon Dioxide 25.7 (21.0-32.0) mmol/L BUN 11 (7.0-18.0) mg/dL Creatinine 0.7 (0.6-1.0) mg/dL Est Cr Clr Drug Dosing 114.01 mL/min Estimated GFR (MDRD) > 60.0 ml/min Glucose 88 (74-106) mg/dL Calcium 8.4 L (8.5-10.1) mg/dL Total Bilirubin 0.2 (0.2-1.0) mg/dL AST 25 (15-37) IU/L ALT 40 (14-63) IU/L Alkaline Phosphatase 73 (46-116) U/L Total Protein 7.9 (6.4-8.2) g/dL Albumin 3.9 (3.4-5.0) g/dL Globulin 4.0 (2.6-4.0) g/dL Albumin/Globulin Ratio 1.0 (0.9-1.6) Lipase 105 (73-393) U/L HCG, Quant mIU/mL Urine Color Urine Appearance Urine pH (5.0-8.0) Ur Specific [place] (1.001-1.035) Urine Protein (NEGATIVE) mg/dL Urine Glucose (UA) (NEGATIVE) mg/dL Urine Ketones (NEGATIVE) mg/dL Urine Occult Blood (NEGATIVE) Urine Nitrite (NEGATIVE) Urine Bilirubin (NEGATIVE) Urine Urobilinogen (<2.0) EU/dL Ur Leukocyte Esterase (NEGATIVE) Urine HCG, Qual (NEGATIVE) 02/14/21 02/14/21 02/14/21 Range/Units 15:38 17:46 17:46 WBC (4.0-11.0) K/uL RBC (4.30-5.90) M/uL Hgb (12.0-16.0) g/dL Hct (36.0-46.0) % MCV (80.0-98.0) fL MCH (27.0-32.0) pg MCHC (31.0-37.0) g/dL RDW Std Deviation (28.0-62.0) fl RDW Coeff of Pete (11.0-15.0) % Plt Count (150-400) K/uL MPV (7.40-12.00) fL Neut % (Auto) (48.0-80.0) % Lymph % (Auto) (16.0-40.0) % [place] % (Auto) (0.0-15.0) % Eos % (Auto) (0.0-7.0) % Baso % (Auto) (0.0-1.5) % Neut # (Auto) (1.4-5.7) K/uL Lymph # (Auto) (0.6-2.4) K/uL [place] # (Auto) (0.0-0.8) K/uL Eos # (Auto) (0.0-0.7) K/uL Baso # (Auto) (0.0-0.1) K/uL Nucleated RBC % /100WBC Nucleated RBCs # K/uL Lactate (0.20-2.00) mmol/L Sodium (136-145) mmol/L Potassium (3.5-5.1) mmol/L Chloride (98-107) mmol/L Carbon Dioxide (21.0-32.0) mmol/L BUN (7.0-18.0) mg/dL Creatinine (0.6-1.0) mg/dL Est Cr Clr Drug Dosing mL/min Estimated GFR (MDRD) ml/min Glucose (74-106) mg/dL Calcium (8.5-10.1) mg/dL Total Bilirubin (0.2-1.0) mg/dL AST (15-37) IU/L ALT (14-63) IU/L Alkaline Phosphatase (46-116) U/L Total Protein (6.4-8.2) g/dL Albumin (3.4-5.0) g/dL Globulin (2.6-4.0) g/dL Albumin/Globulin Ratio (0.9-1.6) Lipase (73-393) U/L HCG, Quant < 1.0 mIU/mL Urine Color YELLOW Urine Appearance CLEAR Urine pH 6.0 (5.0-8.0) Ur Specific [place] 1.010 (1.001-1.035) Urine Protein NEGATIVE (NEGATIVE) mg/dL Urine Glucose (UA) NEGATIVE (NEGATIVE) mg/dL Urine Ketones NEGATIVE (NEGATIVE) mg/dL Urine Occult Blood NEGATIVE (NEGATIVE) Urine Nitrite NEGATIVE (NEGATIVE) Urine Bilirubin NEGATIVE (NEGATIVE) Urine Urobilinogen 0.2 (<2.0) EU/dL Ur Leukocyte Esterase NEGATIVE (NEGATIVE) Urine HCG, Qual NEGATIVE (NEGATIVE) Meds: Medications Discontinued Medications Generic Name Dose Route Start Last Admin Trade Name Freq PRN Reason Stop Dose Admin Sodium Chloride 1,000 mls @ 999 mls/hr 02/14/21 15:36 02/14/21 15:43 Normal Saline IV 02/14/21 16:36 999 mls/hr .BOLUS ONE Administration Iopamidol 100 ml 02/14/21 17:13 02/14/21 17:31 Iopamidol 755 Mg/Ml 500 Ml Multipack Bottle IVPUSH 02/14/21 17:14 100 ml ONETIME STA Administration Ketorolac Tromethamine 15 mg 02/14/21 20:43 Ketorolac 15 Mg/Ml Sdv IVPUSH 02/14/21 20:44 Q6H STA Morphine Sulfate 4 mg 02/14/21 15:36 02/14/21 15:43 Morphine 4 Mg/Ml Syringe IVPUSH 02/14/21 15:37 4 mg ONETIME ONE Administration Ondansetron HCl 4 mg 02/14/21 15:36 02/14/21 15:43 Ondansetron 4 Mg/2 Ml Sdv IVPUSH 02/14/21 15:37 4 mg ONETIME ONE Administration Departure - Departure Time of Disposition: 20:33 Condition: Good Sepsis Event Note (ED) - Focused Exam Vital Signs: Vital Signs Temp Pulse Resp BP Pulse Ox 02/14/21 17:10 81 18 99 02/14/21 15:29 97.3 F 78 18 114/71 99
[2021-02-14 16:05] LABS: BLOOD UREA NITROGEN,BUN 11 mg/dL (7.0-18.0); CARBON DIOXIDE,CO2 25.7 mmol/L (21.0-32.0); CHLORIDE,CL 102 mmol/L (98-107); GLUCOSE RANDOM 88 mg/dL (74-106); LIPASE 105 U/L (73-393); POTASSIUM,K 3.7 mmol/L (3.5-5.1); SODIUM,NA 140 mmol/L (136-145)
[2021-02-14] MEDS ORDERED: Iopamidol 755 MG/ML 500 ML Multipack Bottle IVPUSH STA (17:13)
--- NOTE | 2021-02-14 18:12 | CT ---
INDICATION: Abdominal pain TECHNIQUE: CT abdomen and pelvis acquired with IV contrast. 100 mL of Isovue 370 administered COMPARISON: None available FINDINGS: Lower chest: Unremarkable. Liver: Unremarkable. Spleen: Unremarkable. Pancreas: Unremarkable. Gallbladder and bile ducts: Unremarkable. Adrenal glands: Unremarkable. Kidneys: Unremarkable. GI tract: Unremarkable. Appendix is normal. Vascular structures: Normal aortic caliber. Mild prominence of the gonadal veins. Lymph nodes: Unremarkable. Miscellaneous: Small to moderate higher than water attenuation pelvic free fluid compatible with blood products. No free air. Pelvic Organs: A 3.9 x 3.0 x 3.6 cm right adnexal low-density structure. No discrete uterine or bladder abnormality seen. 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 IMPRESSION: Small to moderate high attenuation pelvic fluid compatible with blood, which could be related to a ruptured hemorrhagic ovarian cyst, with a 3.9 cm right adnexal low-density lesion. Correlate with pelvic sonography. Otherwise, no evidence of an acute process in the abdomen and pelvis. Mild prominence of the gonadal veins. Correlate clinically to exclude mild pelvic congestion syndrome. Please note that all CT scans at this facility use dose modulation, iterative reconstruction, and/or weight-based dosing when appropriate to reduce radiation dose to as low as reasonably achievable. Dictated by Sumeet Hermosillo MD @ Feb 14 2021 5:53PM Signed by Dr. Sumeet Hermosillo @ Feb 14 2021 6:09PM
--- NOTE | 2021-02-14 20:19 | US ---
INDICATION: Right adnexal cyst on CT. TECHNIQUE: Ultrasound pelvis transvaginal for better assessment or to better visualize the endometrium. Real-time sonographic images with spectral and color Doppler imaging of the ovaries were obtained. COMPARISON: 02/14/2021 CT abdomen pelvis FINDINGS: Uterus: 8.5 x 5.0 x 4.1 cm. Normal echotexture of the myometrium. No masses. Endometrium: Transvaginal imaging was performed to better evaluate the endometrium. Endometrial thickness measures 6 mm. No sign of endometrial mass or fluid. Right ovary measures 4.2 x 3.5 x 4.1 cm and left ovary measures 2.2 x 2.2 x 0.8 cm. Right ovarian cyst containing lace-like reticular echoes consistent with hemorrhagic cyst measures 3.5 x 2.8 x 3.1 cm. Normal flow in both ovaries. Cul-de-sac: Moderate amount of free fluid containing echoes likely due to blood products. IMPRESSION: 1. Right ovarian hemorrhagic cyst measures 3.5 cm. 2. Moderate amount of free fluid, likely due to blood products from hemorrhagic ovarian cyst. Dictated by Shine Tolenitno MD @ Feb 14 2021 8:11PM Signed by Dr. Shine Tolentino @ Feb 14 2021 8:18PM
[2021-02-14] MEDS ORDERED: Ketorolac 15 MG/ML SDV IVPUSH STA (20:43)
== END 2021-02-14 21:08 | disposition home or self-care (01) ==
LOC: MW.ED 15:15
DX: N83.201 Unspecified ovarian cyst, right side (principal)
CPT/HCPCS: 36415; 74177; 76856; 80053; 81003; 81025; 83605; 83690; 84702; 85025; 96374; 96375; 99284; J2270; J2405; J7030; Q9967

== ENCOUNTER 2021-07-09 21:58 | Emergency (ER) | payer SELFPAY ==
[2021-07-10] MEDS ORDERED: Acetaminophen 325 MG Tab PO ONE (00:32)
--- NOTE | 2021-07-10 00:35 | EDM.PDOC ---
ED HPI GENERAL MEDICAL PROBLEM - General Chief Complaint: Respiratory Problem Stated Complaint: HEADACHE, FEVER, VOMITING Time Seen by Provider: 07/10/21 00:24 Source of Information: Reports: Patient History Limitations: Reports: No Limitations - History of Present Illness INITIAL COMMENTS - FREE TEXT/NARRATIVE: Patient is a 26-year-old female who presents today for headache and vomiting. Patient states that it started earlier today. She occasionally has headaches and similar to ones in the past. The headache is at the top of her head. Nothing makes it better or worse. She also reported some nausea and vomiting. Patient concerned she is so she did not take any Tylenol for headache at home. She has appointment with her doctor on the and will try to wait to the end to take a test. She denies any abdominal pain no vaginal bleeding or discharge no urinary symptoms. Head Pain Score (Numeric/FACES): 6 - Related Data Allergies Allergy/AdvReac Type Severity Reaction Status Date / Time No Known Allergies Allergy Verified 02/14/21 15:30 Home Meds: Home Meds Iron 1 tab PO DAILY 11/29/20 [History] Pnv No.95/Ferrous Fum/Folic AC [ Vitamin Tablet] 1 tab PO DAILY 11/29/20 [History] Ibuprofen [Motrin] 800 mg PO Q8H PRN #90 tablet 12/01/20 [Rx] Ibuprofen 600 mg PO Q6HR PRN #30 tablet 02/14/21 [Rx] Ibuprofen 600 mg PO Q6HR PRN #30 tablet 02/14/21 [Rx] Past Medical History - Past Health History Medical/Surgical History: Denies Medical/Surgical History HEENT History: Reports: None Cardiovascular History: Reports: None Respiratory History: Reports: None Gastrointestinal History: Reports: None Genitourinary History: Reports: None 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: , 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 Musculoskeletal History: Reports: None Neurological History: Reports: None Psychiatric History: Reports: None Endocrine/Metabolic History: Reports: None Hematologic History: Reports: None Immunologic History: Reports: None Oncologic (Cancer) History: Reports: None Dermatologic History: Reports: None - Infectious Disease History Infectious Disease History: Reports: None - Past Surgical History Head Surgeries/Procedures: Reports: None HEENT Surgical History: Reports: None Cardiovascular Surgical History: Reports: None Respiratory Surgical History: Reports: None GI Surgical History: Reports: None Female Surgical History: Reports: None Endocrine Surgical History: Reports: None Neurological Surgical History: Reports: None Musculoskeletal Surgical History: Reports: None Oncologic Surgical History: Reports: None Dermatological Surgical History: Reports: None Social & Family History - Family History Family Medical History: No Pertinent Family History Cardiac: Reports: Hypertension OBGYN: Reports: - Tobacco Use Tobacco Use Status *Q: Never Tobacco User - Caffeine Use Caffeine Use: Reports: None - Recreational Drug Use Recreational Drug Use: No ED ROS GENERAL - Review of Systems Review Of Systems: See Below Constitutional: Reports: No Symptoms HEENT: Reports: No Symptoms Respiratory: Reports: No Symptoms Cardiovascular: Reports: No Symptoms Endocrine: Reports: No Symptoms GI/Abdominal: Reports: Nausea : Reports: No Symptoms Musculoskeletal: Reports: No Symptoms Skin: Reports: No Symptoms Neurological: Reports: Headache Psychiatric: Reports: No Symptoms Hematologic/Lymphatic: Reports: No Symptoms Immunologic: Reports: No Symptoms ED EXAM, GENERAL - Physical Exam Exam: See Below Exam Limited By: No Limitations General Appearance: Alert, WD/WN, No Apparent Distress Eye Exam: Bilateral Eye: EOMI, PERRL Head: Atraumatic, Normocephalic Respiratory/Chest: No Respiratory Distress, Lungs Clear, Normal Breath Sounds Cardiovascular: Normal Peripheral Pulses, Regular Rate, Rhythm GI/Abdominal: Normal Bowel Sounds, Soft, Non-Tender Neurological: Alert, Oriented Course - Vital Signs Last Recorded V/S: Last Vital Signs Temp 97.5 F 07/10/21 00:27 Pulse 79 07/10/21 00:27 Resp 16 07/10/21 00:27 BP 128/79 07/10/21 00:27 Pulse Ox 99 07/10/21 00:27 - Orders/Labs/Meds Orders: Active Orders 24 hr Category Date Time Status HCG QUANTITATIVE [CHEM] Stat Lab 07/10/21 01:00 Received Labs: Laboratory Tests 07/10/21 07/10/21 07/10/21 Range/Units 00:41 00:50 00:50 WBC 8.30 (4.0-11.0) K/uL RBC 4.21 L (4.30-5.90) M/uL Hgb 12.0 (12.0-16.0) g/dL Hct 35.7 L (36.0-46.0) % MCV 84.8 (80.0-98.0) fL MCH 28.5 (27.0-32.0) pg MCHC 33.6 (31.0-37.0) g/dL RDW Std Deviation 42.9 (28.0-62.0) fl RDW Coeff of Pete 14 (11.0-15.0) % Plt Count 198 (150-400) K/uL MPV 11.30 (7.40-12.00) fL Neut % (Auto) 62.0 (48.0-80.0) % Lymph % (Auto) 28.0 (16.0-40.0) % [place] % (Auto) 8.7 (0.0-15.0) % Eos % (Auto) 1.2 (0.0-7.0) % Baso % (Auto) 0.1 (0.0-1.5) % Neut # (Auto) 5.2 (1.4-5.7) K/uL Lymph # (Auto) 2.3 (0.6-2.4) K/uL [place] # (Auto) 0.7 (0.0-0.8) K/uL Eos # (Auto) 0.1 (0.0-0.7) K/uL Baso # (Auto) 0.0 (0.0-0.1) K/uL Sodium 135 L (136-145) mmol/L Potassium 4.1 (3.5-5.1) mmol/L Chloride 102 (98-107) mmol/L Carbon Dioxide 27.0 (21.0-32.0) mmol/L BUN 5 L (7.0-18.0) mg/dL Creatinine 0.5 L (0.6-1.0) mg/dL Est Cr Clr Drug Dosing 145.94 mL/min Estimated GFR (MDRD) > 60.0 ml/min Glucose 83 (74-106) mg/dL Calcium 8.0 L (8.5-10.1) mg/dL Urine HCG, Qual POSITIVE (NEGATIVE) Meds: Medications Discontinued Medications Generic Name Dose Route Start Last Admin Trade Name Freq PRN Reason Stop Dose Admin Acetaminophen 650 mg 07/10/21 00:32 07/10/21 00:36 Acetaminophen 325 Mg Tab PO 07/10/21 00:33 650 mg NOW ONE Administration Departure - Departure Time of Disposition: 01:53 Disposition: Home, Self-Care 01 Condition: Good Clinical Impression: Headache - Discharge Information Instructions: General Headache Without Cause Referrals: PCP,None [Primary Care Provider] - Forms: ED Department Discharge Additional Instructions: The following information is given to patients seen in the emergency department who are being discharged to home. This information is to outline your options fo r follow-up care. We provide all patients seen in our emergency department with a follow-up referral. The need for follow-up, as well as the timing and circumstances, are variable depending upon the specifics of your emergency department visit. If you don't have a primary care physician on staff, we will provide you with a referral. We always advise you to contact your personal physician following an emergency department visit to inform them of the circumstance of the visit and for follow-up with them and/or the need for any referrals to a consulting specialist. The emergency department will also refer you to a specialist when appropriate. This referral assures that you have the opportunity for follow-up care with a specialist. All of these measure are taken in an effort to provide you with optimal care, which includes your follow-up. Under all circumstances we always encourage you to contact your private physician who remains a resource for coordinating your care. When calling for follow-up care, please make the office aware that this follow-up is from your recent emergency room visit. If for any reason you are refused follow-up, please contact the [facility] Emergency Department at and asked to speak to the emergency department charge nurse. Please follow up with your primary care physician. If you do not have a primary care physician, see below: [facility] [address] [place] [id number] [facility] [address] [place] [id number] You are seen today for headache. Your headache improved with Tylenol. You are also found to be . We have attached above the numbers you can call to obtain follow-up for further work-up of your new . If you develop any symptoms or complaints please return to the ED. Please continue to stay hydrated and take Tylenol as needed for your headache. Sepsis Event Note (ED) - Focused Exam Vital Signs: Vital Signs Temp Pulse Resp BP Pulse Ox 07/10/21 00:27 97.5 F 79 16 128/79 99 07/09/21 22:15 97.4 F 70 18 132/73 99 - My Orders Last 24 Hours: My Active Orders 07/10/21 01:00 HCG QUANTITATIVE [CHEM] Stat - Assessment/Plan Last 24 Hours: My Active Orders 07/10/21 01:00 HCG QUANTITATIVE [CHEM] Stat Plan: Patient is a 26-year-old female presents today for headache and vomiting. She has concerned that she could be . Will obtain presents as provide Tylenol and reassess patient.
[2021-07-10 01:08] LABS: BLOOD UREA NITROGEN,BUN 5 mg/dL (7.0-18.0); CHLORIDE,CL 102 mmol/L (98-107); GLUCOSE RANDOM 83 mg/dL (74-106); POTASSIUM,K 4.1 mmol/L (3.5-5.1); SODIUM,NA 135 mmol/L (136-145)
== END 2021-07-10 02:09 | disposition home or self-care (01) ==
LOC: MW.ED 21:58
DX: O99.891 Other specified diseases and conditions complicating pregnancy (principal); R51.9 Headache, unspecified
CPT/HCPCS: 36415; 80048; 81025; 84702; 85025; 99284; A9270

== ENCOUNTER 2021-11-03 15:20 | Emergency (ER) | payer SELFPAY ==
[2021-11-03 16:50] LABS: CORONAVIRUS COVID-19 NAA NEGATIVE (NEGATIVE); INFLUENZA A NAA POSITIVE (NEGATIVE); INFLUENZA B NAA NEGATIVE (NEGATIVE)
--- NOTE | 2021-11-03 16:56 | EDM.PDOC ---
ED HPI GENERAL MEDICAL PROBLEM - General Chief Complaint: Fever Stated Complaint: FEVER ACHES 29 WKS Time Seen by Provider: 11/03/21 15:35 Source of Information: Reports: Patient History Limitations: Reports: No Limitations - History of Present Illness INITIAL COMMENTS - FREE TEXT/NARRATIVE: HISTORY AND PHYSICAL: History of present illness: Patient is a 26-year-old female, who is primarily speaking, who presents emergency room today with concern of cough, sore throat, and intermittent fevers over the past 3 to 4 days. Patient is approximately 29 weeks in gestation and follows with RISA No, and has had a normal thus far according to patient. Patient's is at bedside who is translating. [facility] geophysical prospecting surveyor was offered to patient, however, she prefers her . Patient then states that she has had some increased vaginal pain/cramping over the past several days but denies any vaginal bleeding, or change in discharge. Patient denies chest pain, shortness of breath. Denies headache, neck stiff ness, change in vision, syncope, or near syncope. Denies nausea, vomiting, diarrhea, constipation, or dysuria. Has not noted any blood in urine or stool. Patient has been eating and drinking appropriately. Review of systems: As per history of present illness and below otherwise all systems reviewed and negative. Past medical history: As per history of present illness and as reviewed below otherwise noncontributory. Surgical history: As per history of present illness and as reviewed below otherwise noncontributory. Social history: See social history for further information Family history: As per history of present illness and as reviewed below otherwise noncontributory. Physical exam: General: Patient is alert, oriented, and in no acute distress. Patient sitting comfortably on exam table. Vitals stable and reviewed by me. HEENT: Atraumatic, normocephalic, pupils equal and reactive bilaterally, negative for conjunctival pallor or scleral icterus, mucous membranes moist, throat clear, neck supple, nontender, trachea midline. No drooling or trismus noted. No meningeal signs. No hot potato voice noted. Lungs: Clear to auscultation, breath sounds equal bilaterally, chest nontender. Heart: S1S2, regular rate and rhythm without overt murmur Abdomen: Soft, nondistended, nontender. Negative for masses or hepatosplenomegaly. Negative for costovertebral tenderness. Pelvis: Stable nontender. Genitourinary: Deferred. Rectal: Deferred. Skin: Intact, warm, dry. No lesions or rashes noted. Extremities: Atraumatic, negative for cords or calf pain. Neurovascular unremarkable. Neuro: Awake, alert, oriented. Cranial nerves II through XII unremarkable. Cerebellum unremarkable. Motor and sensory unremarkable throughout. Exam nonfocal. Medical Decision Making: heart tones at bedside 152. Strict return precautions thoroughly discussed with patient. Discussed importance for follow-up with a primary care provider/PREVENTIVE MAINTENANCE COORDINATOR provider. Voices understanding and is agreeable to plan of care. Denies any further questions or concerns at this time. Diagnostics: Influenza, COVID Therapeutics: None Prescription: None Impression: Influenza A , 29 weeks with lower abdominal cramping Plan: Patient was discharged and brought up to labor and delivery for additional monitoring 1. You can take Tylenol as directed for fevers and discomfort. This is safe to use in . 2. Follow-up with your primary care provider/PREVENTIVE MAINTENANCE COORDINATOR provider as discussed. Return to the ED as needed and as discussed. Definitive disposition and diagnosis as appropriate pending reevaluation and review of above. ears bilaterally/throat Pain Score (Numeric/FACES): 8 - Related Data Allergies Allergy/AdvReac Type Severity Reaction Status Date / Time No Known Allergies Allergy Verified 11/03/21 15:55 Home Meds: Home Meds Iron 1 tab PO DAILY 11/29/20 [History] Pnv No.95/Ferrous Fum/Folic AC [ Vitamin Tablet] 1 tab PO DAILY 11/29/20 [History] Past Medical History - Past Health History Medical/Surgical History: Denies Medical/Surgical History HEENT History: Reports: None Cardiovascular History: Reports: None Respiratory History: Reports: None Gastrointestinal History: Reports: None Genitourinary History: Reports: None 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: , 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 Musculoskeletal History: Reports: None Neurological History: Reports: None Psychiatric History: Reports: None Endocrine/Metabolic History: Reports: None Hematologic History: Reports: None Immunologic History: Reports: None Oncologic (Cancer) History: Reports: None Dermatologic History: Reports: None - Infectious Disease History Infectious Disease History: Reports: Chicken Pox - Past Surgical History Head Surgeries/Procedures: Reports: None HEENT Surgical History: Reports: None Cardiovascular Surgical History: Reports: None Respiratory Surgical History: Reports: None GI Surgical History: Reports: None Female Surgical History: Reports: None Endocrine Surgical History: Reports: None Neurological Surgical History: Reports: None Musculoskeletal Surgical History: Reports: None Oncologic Surgical History: Reports: None Dermatological Surgical History: Reports: None Social & Family History - Family History Family Medical History: No Pertinent Family History Cardiac: Reports: Hypertension OBGYN: Reports: - Tobacco Use Tobacco Use Status *Q: Never Tobacco User - Caffeine Use Caffeine Use: Reports: Coffee - Recreational Drug Use Recreational Drug Use: No ED ROS GENERAL - Review of Systems Review Of Systems: Comprehensive ROS is negative, except as noted in HPI. ED EXAM, GENERAL - Physical Exam Exam: See Below (See dictation) Course - Vital Signs Last Recorded V/S: Last Vital Signs Temp 97.0 F 11/03/21 15:56 Pulse 104 H 11/03/21 15:56 Resp 17 11/03/21 15:56 BP 124/70 11/03/21 15:56 Pulse Ox 98 11/03/21 15:56 - Orders/Labs/Meds Labs: Laboratory Tests 11/03/21 11/03/21 Range/Units 16:07 16:18 Influenza Type A RNA POSITIVE H (NEGATIVE) Influenza Type B RNA NEGATIVE (NEGATIVE) SARS-CoV-2 RNA (NORMAN) NEGATIVE (NEGATIVE) Group A Strep (PCR) NOT DETECTED (NOT DETECT) Departure - Departure Time of Disposition: 16:55 Disposition: Home, Self-Care 01 Clinical Impression: Influenza A - Discharge Information Instructions: Influenza, Adult, [id number] Referrals: PCP,None [Primary Care Provider] - Forms: ED Department Discharge Additional Instructions: The following information is given to patients seen in the emergency department who are being discharged to home. This information is to outline your options for follow-up care. We provide all patients seen in our emergency department with a follow-up referral. The need for follow-up, as well as the timing and circumstances, are variable depending upon the specifics of your emergency department visit. If you don't have a primary care physician on staff, we will provide you with a referral. We always advise you to contact your personal physician following an emergency department visit to inform them of the circumstance of the visit and for follow-up with them and/or the need for any referrals to a consulting specialist. The emergency department will also refer you to a specialist when appropriate. This referral assures that you have the opportunity for follow-up care with a s pecialist. All of these measure are taken in an effort to provide you with optimal care, which includes your follow-up. Under all circumstances we always encourage you to contact your private physici an who remains a resource for coordinating your care. When calling for follow-up care, please make the office aware that this follow-up is from your recent emergency room visit. If for any reason you are refused follow-up, please contact the [facility] Emergency Department at and asked to speak to the emergency department charge nurse. [facility] [address] [place] [id number] [facility] [address] [place] [id number] 1. You can take Tylenol as directed for fevers and discomfort. This is safe to use in . 2. Follow-up with your primary care provider/PREVENTIVE MAINTENANCE COORDINATOR provider as discussed. Return to the ED as needed and as discussed. Sepsis Event Note (ED) - Evaluation Sepsis Screening Result: No Definite Risk - Focused Exam Vital Signs: Vital Signs Temp Pulse Resp BP Pulse Ox 11/03/21 15:56 97.0 F 104 H 17 124/70 98
== END 2021-11-03 17:08 | disposition home or self-care (01) ==
LOC: MW.ED 15:20
DX: O99.513 Diseases of the respiratory system complicating pregnancy, third trimester (principal); J10.1 Influenza due to other identified influenza virus with other respiratory manifestations; O99.891 Other specified diseases and conditions complicating pregnancy; R10.30 Lower abdominal pain, unspecified; Z20.822 Contact with and (suspected) exposure to COVID-19; Z3A.29 29 weeks gestation of pregnancy
CPT/HCPCS: 0240U; 87651; 99283

== ENCOUNTER 2022-06-14 00:24 | Emergency (ER) | payer SELFPAY ==
[2022-06-14] MEDS ORDERED: Penicillin V Potassium 500 MG Tab PO STA (02:37)
== END 2022-06-14 03:10 | disposition home or self-care (01) ==
LOC: MW.ED 00:24
DX: J02.0 Streptococcal pharyngitis (principal); Z20.822 Contact with and (suspected) exposure to COVID-19
CPT/HCPCS: 87635; 87651; 99283; A9270; U0002

== ENCOUNTER 2024-09-18 05:47 | Emergency (ER) | payer SELFPAY ==
[2024-09-18 07:13] LABS: APPEARANCE,URINE CLEAR; BILIRUBIN,URINE NEGATIVE (NEGATIVE); COLOR,URINE YELLOW; GLUCOSE,URINE NEGATIVE (NEGATIVE); KETONES,URINE NEGATIVE (NEGATIVE); LEUKOCYTE ESTERASE,URINE SMALL (NEGATIVE); NITRITE,URINE NEGATIVE (NEGATIVE); OCCULT BLOOD,URINE NEGATIVE (NEGATIVE); PROTEIN,URINE NEGATIVE (NEGATIVE); UROBILINOGEN,URINE 0.2 EU/dL (<2.0)
[2024-09-18 07:21] LABS: BACTERIA,URINE FEW (NEGATIVE); EPITHELIAL CELLS,URINE FEW (NONE-FEW); RBC,URINE NONE SEEN (0-2/HPF)
[2024-09-18] MEDS: Sodium Chloride 0.9% 1,000 ML IV STA (08:05)
[2024-09-18] MEDS: Sodium Chloride 0.9% 10 ML Syringe FLUSH PRN (08:06)
[2024-09-18] MEDS: Metoclopramide 10 MG/2 ML SDV IVPUSH ONE (08:06)
[2024-09-18] MEDS: diphenhydrAMINE 50 MG/ML SDV IVPUSH ONE (08:06)
[2024-09-18] MEDS: Sodium Chloride 0.9% 2.5 ML Syringe FLUSH PRN (08:06)
[2024-09-18 08:10] LABS: BASOPHILS ABSOLUTE AUTO 0.01 K/uL (0.00-0.20); BASOPHILS PERCENT AUTO 0.2 % (0.0-1.0); EOSINOPHILS ABSOLUTE AUTO 0.01 K/uL (0.00-0.45); EOSINOPHILS PERCENT AUTO 0.2 % (0.0-6.0); HEMATOCRIT 38.9 % (37.0-47.0); HEMOGLOBIN 13.6 g/dL (12.0-16.0); IMMATURE GRAN ABSOLUTE AUTO 0.01 K/uL (0.00-0.05); IMMATURE GRAN PERCENT AUTO 0.2 % (0.0-0.4); LYMPHOCYTES PERCENT AUTO 16.8 % (24.0-44.0); MEAN CORPUSCULAR HEMOGLOBIN 29.2 pg (28.0-32.0); MEAN CORPUSCULAR VOLUME 83.7 fL (83.0-99.0); MEAN PLATELET VOLUME 10.9 fL (9.4-12.3); MONOCYTES ABSOLUTE AUTO 0.54 K/uL (0.00-0.80); MONOCYTES PERCENT AUTO 10.1 % (0.0-8.0); NEUTROPHILS ABSOLUTE AUTO 3.89 K/uL (1.80-7.70); NEUTROPHILS PERCENT AUTO 72.5 % (41.0-71.0); PLATELET COUNT,PLT 147 K/uL (150-400); RED BLOOD CELL COUNT 4.65 M/uL (4.10-5.30); WHITE BLOOD CELL COUNT,WBC 5.36 K/uL (3.9-11.3)
[2024-09-18 08:28] LABS: A/G RATIO 1.1 (0.9-1.6); ALBUMIN 3.9 g/dL (3.4-5.0); BILIRUBIN TOTAL 0.3 mg/dL (0.2-1.0); CALCIUM 8.7 mg/dL (8.5-10.1); CARBON DIOXIDE,CO2 26.9 mmol/L (21.0-32.0); CREATININE 0.7 mg/dL (0.6-1.0); EST CRCL DRUG DOSING (CG) 105.74 mL/min; POTASSIUM,K 3.6 mmol/L (3.5-5.1); PROTEIN TOTAL,TP 7.5 g/dL (6.4-8.2)
[2024-09-18] MEDS: Ketorolac 30 MG/ML SDV IVPUSH ONE (09:07)
== END 2024-09-18 09:51 | disposition home or self-care (01) ==
LOC: MW.ED 05:47
DX: R51.9 Headache, unspecified (principal); Z79.2 Long term (current) use of antibiotics; Z75.8 Other problems related to medical facilities and other health care
CPT/HCPCS: 36415; 70450; 80053; 81001; 81025; 85025; 87428; 96361; 96374; 96375; 99284; J1200; J2765; J3490; J7030